=== PATIENT | female | born 1950 | race Caucasian/White ===

== ENCOUNTER 2021-11-01 08:59 | Emergency (ER) | payer MEDICARE, SELFPAY ==
[2021-11-01 09:10] VITALS: BP 105/61; PULSE 81; RESP 14; TEMP 36.6; O2SAT 99; BMI 29.6
--- NOTE | 2021-11-01 09:16 | DI.RAD.S_ITS ---
PROCEDURE: XR HIP W PEL IF DONE LT 2V INDICATIONS: fall,hip pain TECHNIQUE: AP pelvis with lateral view(s) of the left hip(s). COMPARISON: None. FINDINGS: Bones: No acute fractures or dislocations. There are surgical changes of fusion of the sacroiliac joints and multilevel lumbosacral fusion. There are severe degenerative changes in the right hip including a [id number] in the femoroacetabular joint and flattened right femoral head. There are mild degenerative changes in the left femoroacetabular joint Pelvic ring appears intact. No suspicious bony lesions. Soft tissues: The visualized bowel gas pattern is normal. No suspicious soft tissue calcifications. IMPRESSION: 1. No acute fractures. 2. Severe right hip degeneration. 3. Intact lower lumbar and sacral fusion hardware. Dictated by: Jolynn Villeda M.D. on 11/01/2021 at 9:55 Approved by: Jolynn Villeda M.D. on 11/01/2021 at 9:56
--- NOTE | 2021-11-01 09:55 | ED_ITS ---
HPI - Extremity Injury (Lower) General Chief Complaint: Extremity Injury, Lower Stated Complaint: Left hip pain Time Seen by Provider: 11/01/21 09:19 Source: patient Mode of arrival: Ambulatory Limitations: no limitations History of Present Illness HPI Narrative: The patient fell at home 8 days ago, going backwards and landing on her left hip. She has continuous left hip pain since the fall. Pain was increased this morning. There was no head, neck or torso injury. She has a history of 3 prior spinal surgeries, she usees a walker when ambulating. She says she falls frequently. She is concerned about increased pain today when she awoke. There is no new numbness or weakness in left leg. She is ambulatory in the room with her walker. She claims she has arthritis everywhere. She takes OxyContin reg ularly and is under a pain contract. She has no increased back pain associated with the recent fall. She does not have a history of chronic hip pain. Related Data Allergies Allergy/AdvReac Type Severity Reaction Status Date / Time aspirin Allergy Verified 11/01/21 09:14 gentamicin Allergy Verified 11/01/21 09:14 Sulfa (Sulfonamide Allergy Verified 11/01/21 09:14 Antibiotics) Review of Systems Constitutional Constitutional: Denies body ache(s), Denies fatigue, Denies fever(s) and Denies weakness ENT Ears, Nose, Mouth, and Throat: Denies sore throat Comments: No head or neck injuries. Cardiovascular Cardiovascular: Denies chest pain, Denies rapid heart rate and Reports dyspnea Respiratory Respiratory: Reports cough and Reports dyspnea Gastrointestinal Gastrointestinal: Denies abdominal pain and Denies nausea Genitourinary Genitourinary: Denies dysuria Musculoskeletal Musculoskeletal: Reports as per HPI and Denies numbness Integumentary/Breasts Skin/Breast: Denies rash Neurologic Neurologic: Denies numbness and Denies weakness Endocrine Endocrine: Denies fatigue Patient History Medical History (Updated 11/01/21 @ 13:37 by Tom Patricia MD) Arthritis Back pain with history of spinal surgery Social History Smoking Status: Unknown if ever smoked Smoking Status: Unknown if ever smoked alcohol intake frequency: 3 or more drinks per day Substance Use Type: does not use Exam Initial Vital Signs Initial Vital Signs: Vital Signs Temperature 97.9 F 11/01/21 09:10 Pulse Rate 81 11/01/21 09:10 Respiratory Rate 14 11/01/21 09:10 Blood Pressure 105/61 11/01/21 09:10 Pulse Oximetry 99 11/01/21 09:10 Const General: cooperative, healthy appearing and comfortable Resp Auscultation: clear to auscultation bilaterally Cardio Rate: regular rate Rhythm: regular rhythm Heart Sounds: S1 normal, S2 normal, no click, no murmurs and no rubs Back/Spine/Pelvis Other: Evidence of multiple spine surgeries. No acute discomfort or abnormality and her thoracic or lumbar spine. Skin General: no rashes or lesions noted Neuro General: patient alert, patient awake, patient oriented x3 and no focal motor deficits Other: Ambulatory with her walker. Extrem Other: Tenderness to the left lateral hip. No contusion abrasion, no obvious abnormalities or injury. Normal range of motion the left hip with discomfort. Her leg is otherwise normal. Course Course Course Narrative: The patient is on well now, although seemingly quite stiff this morning. She is ambulatory with her walker without incident. She has adequate pain medication at home. X-ray shows a normal left hip, but severe right hip DJD. She is aware of this issue and is under care by a local orthopedic surgeon. Orders Ordered: ED Orders 11/01/21 09:16 XR hip w pel if done LT 2V Stat Vital Signs Vital signs: Vital Signs - 8 hr 11/01/21 09:10 11/01/21 10:25 Temperature 97.9 F 98.1 F Pulse Rate 81 68 Respiratory Rate 14 18 Blood Pressure 105/61 100/58 L Pulse Oximetry 99 98 MDM - Extremity Injury (Lower) Imaging Data Left hip/pelvis x-ray:: Radiologist's Impression: Normal left hip. Severe DJD to the right hip. Discharge Plan Departure Patient Disposition: Home Clinical Impression: Contusion of hip, left Instructions: Contusion Activity Restrictions/Additional Instructions: Continue current pain management. I would recommend you talk to your doctor about physical therapy regarding the hip pain. Return here as needed. Referrals: Garima Lanier MD [Primary Care Provider] -
[2021-11-01 10:25] VITALS: BP 100/58; PULSE 68; RESP 18; TEMP 36.7; O2SAT 98
== END 2021-11-01 10:29 | disposition home or self-care (01) ==
PROVIDERS: Emergency Provider Emergency Medicine; PCP Internal Medicine Geriatric Medicine
DX: S70.02XA Contusion of left hip, initial encounter (principal); W18.30XA Fall on same level, unspecified, initial encounter; Z91.81 History of falling
CPT/HCPCS: 73502; 99281; 99283

== ENCOUNTER → 2022-02-03 10:17 | Outpatient (CLI) | payer MEDICARE, SELFPAY ==
[2022-02-03 13:10] LABS: COVID19 -Nasal RAPID Negative (Negative)
== END ==
PROVIDERS: PCP Internal Medicine Geriatric Medicine; Visit Provider Family Medicine Sleep Medicine
DX: Z20.822 Contact with and (suspected) exposure to COVID-19 (principal)
CPT/HCPCS: 87635; C9803

== ENCOUNTER 2022-02-04 08:56 | Inpatient (IN) | payer MEDICARE, SELFPAY ==
[2022-01-27 10:41] VITALS: BMI 30.7
[2022-02-04] VITALS (23 sets, daily range): BP systolic 79–148; BP diastolic 31–78; PULSE 65–96; RESP 11–18; TEMP 36.2–37.5; O2SAT 91–99; BMI 31.6
--- NOTE | 2022-02-04 07:28 | DI.RAD.S_ITS ---
PROCEDURE: XR HIP W PEL IF DONE RT 2V INDICATIONS: JENNIE TECHNIQUE: 3 intraoperative spot images) of the pelvis was performed. COMPARISON: [facility], [place], XR HIP W PEL IF DONE LT 2V, 11/01/2021, 9:18. FINDINGS: Intraoperative images demonstrate placement of right hip arthroplasty. IMPRESSION: Intraoperative imaging obtained during hip arthroplasty. Dictated by: Maribell Courtney M.D. on 02/04/2022 at 15:31 Approved by: Maribell Courtney M.D. on 02/04/2022 at 16:24
[2022-02-04] MEDS: ACETAMINOPHEN 325 MG TABLET 975 MG PO (09:35)
[2022-02-04] MEDS: VANCOMYCIN 1,000 MG/200 ML PIGGYBACK 200 MG IV (09:55)
--- NOTE | 2022-02-04 10:27 | PM.PREOP ---
Pre-operative Note COVID-19 COVID-19 status: Negative Interval Note History & Physical reviewed/Exam performed by Physician: Yes Changes to H&P: No H&P completed within 30 days and has changed as indicated here:: patient has a bleeding disorder, ddadp is available, no recent severe bleeding episodes
--- NOTE | 2022-02-04 10:28 | P.OP_ITS ---
Operative Date/Time/Diagnoses Date of procedure: 02/04/22 Time of procedure: 11:20 Pre-op diagnosis: Right hip AVN Post-op diagnosis: same Procedure & Clinicians Procedure: Right total hip arthroplasty anterior approach Same procedure as scheduled: Yes Indications: The patient has had progressively worsening right hip pain with radiographic changes consistent with severe right hip avn. Non-operative management has failed and the patient has requested total hip replacement. The risks, benefits and alternatives to surgery were discussed with the patient prior to proceeding. Risks discussed included, but were not limited to, failure to relieve pain, leg length discrepancy, dislocation, stiffness, infection, nerve damage, deep venous thrombosis, pulmonary embolism, stroke, coma, heart attack, permanent paralysis and , as well as the potential need for eventual revision of the prosthetic. Surgeon: Pat Hernandes Gang Knife Fish Chopper: Mariana Mendez Anesthesia Type: General Operative Notes Findings: Severe right hip AVN, adequate stability and bone Closure Type: primary Specimen(s): none sent Prosthetic devices, grafts, tissues, transplants, or devices: Hernandes and nephew R3 cup dual mobility 52 mm, 40 x 52 Oxinium liner, bi 22 by 40 dual mobility poly inset, +0 22 mm head,two 6.5 mm screws, anthology size 6 offset Estimated Blood Loss (mL): 250 Blood products transfused: none Procedure in detail: The patient was brought to the operating room. Patient was carefully positioned in the supine position. Time-out was performed and antibiotics were given. Anesthesia was induced. She was positioned in the on the table in order to allow hyperextension of the hip. The right lower extremity was prepped and draped in a standard sterile fashion. An anterior right hip incision was made 1 fingerbrea dth lateral to the anterior superior iliac spine and extended distally towards the greater trochanter. Dissection was carried out through skin and subcutaneous tissues. Superficial hemostasis was achieved. The fascia over the tensor fascia erika was defined and incised with a knife. Two Allis clamps were used to grasp the fascia. Tensor fascia erika was retracted laterally. A gelpi retractor was placed. Dissection was carried out down along the neck. The circumflex vessels were carefully identified and cauterized with the Aqua Mantis. Very meticulous dissection and hemostasis was performed because of the patient's bleeding disorder. I was meticulous with the subcutaneous tissues and fat and she was slightly heavier than an optimum BMI for anterior approach but it was felt to be essential due to her extensive lumbar fusion. There was good visualization of the femoral neck. A Cobra was placed superior to the neck and the gluteus fibers were carefully stripped from that superior as pect of the capsule. A 2nd retractor was placed along the inferior aspect of the neck. The rectus insertion along the capsule was partially released. A 3rd retractor that was then gently placed over the rim of the acetabulum under the rectus. Capsule was carefully incised and released from the intertrochanteric line circumferentially superior to the mid sagittal line and inferiorly to the mid sagittal line until the lesser trochanter was palpable. A tag stitch was placed both in the superior and inferior limb of the capsular insertion. Along the acetabulum capsule was also released up to the mid sagittal 12:00 position. A portion of the labrum was resected. A saw was used to perform an osteotomy at the level of the intertrochanteric line and the junction of the superior femoral neck leaving approximately 1 finger breath of residual inferior neck above the lesser trochanter. A 2nd cut was made along the femoral neck at the base of the head and a napkin ring of neck was removed. Corkscrew was placed in the femoral head and the head was removed without difficulty. Retractors were then repositioned around the acetabulum. Residual labrum was resected and additional osteophytes were removed. A reamer that was 4 mm below the templated size was placed by hand in the acetabulum and it was reamed to centralize the acetabulum. It was then reamed up to 2 under the templated size and fluoroscopy was brought in to confirm the position of the reaming and depth of reaming. I reamed 1 under the anticipated size and touched the rim with line to line reaming. A trial cup was placed and noted that it was appropriately sized and fluoroscopy confirmed position and depth. The component was open and inserted without difficulty fluoroscopic imaging was used to confirm that the cup had been adequately seated and was well positioned. It was further stabilized with two 6.5 mm screws. Neutral Oxinium dual mobility liner was placed. The cup was tested and noted to be stable. Attention was then directed to the femur. The femur was gently hyperextended additional capsular release was performed as needed in order to allow adequate visualization of the proximal femur with elevation of the femur. Patient was placed in a hyperextended slightly adducted position with maximum external rotation. Box osteotome was used to check for any residual neck as well as sclerotic bone along the trochanter. [place] pepper was placed in the femur. Additional broaching was performed. Canal finder was used to determine the alignment of the canal and position. Size 1 broach was placed. The canal was then appropriately broached up to the templated size as long as there was adequate stability of the broach and serial advancement of the broach without excessive impingement. Specific attention was directed at avoiding varus attempting to direct the distal aspect of the broach more anteriorly and avoiding excessive anteversion. Trial reduction showed acceptable range of motion, good stability, no posterior impingement, episcopalian of leg length and appropriate lateral shuck. I also hyperflexed the hip and checked that there was no impingement anteriorly and there was good stability with flexion, adduction and internal rotation. Marcaine and Exparel were injected. Repeat trial reduction and x-ray showed acceptable overall position, length, and no evidence of the femoral fracture. Fi nal head was placed. Wound was meticulously irrigated with normal saline. The hip was reduced and additional Exparel and Marcaine were injected. The femur was meticulously mobilized throughout procedure. She did hit did have some moderate adhesions in mobility was a minor issue but adequate mobility was achieved. The cup position in range of motion was meticulously checked understanding that she had severe spine pathology. I check for both anterior as well as posterior instability to the best my ability in the table. The capsule was closed with interrupted nonabsorbable sutures. The fascia of the tensor was closed with interrupted and running Vicryl. No drain was placed. Any tensor fascia erika muscle that appeared to be contused or injured which was a minimal amount was carefully resected. Capsule around the tensor was injected with Exparel and Marcaine. The skin was closed with barbed stitches for the subcutaneous tissue and skin. We also used surgical glue. The wound was dressed sterilely. Patient was transferred to recovery room in satisfactory condition. Complications: none Post-operative Condition: stable Disposition: Acute Care Plan for aftercare: The patient will be maintained on a standard total hip replacement protocol with weight bearing as tolerated and anterior hip precautions. The patient will receive Aspirin and sequential compression devices for DVT prophylaxis. The patient will be discharged home when safe for the home environment. She has a history of a bleeding disorder in needs DDAVP 12 hours after the 1st dose.
[2022-02-04] MEDS: DESMOPRESSIN 20 MCG in SODIUM CHLORIDE 0.9% 50 ML 110 ML IV ×2 (10:47→22:40)
--- NOTE | 2022-02-04 10:49 | SUR.PREOP ---
Addendum entered by Ni Yung R.N. 02/04/22 11:19: 1120 - Patient remains on blood pressure and threading machine feeder automatic. NSR in the 60-70's. Blood pressure elevated to 203/120 at 0911 (tranfusion of desmopressin completed). Rechecked blood pressure with a result of 191/104. fulling mill operator at bedside and notified anesthesiologist Dr. Malik of blood pressure. No new orders noted at this time. Remains on monitor. Patient denies any symptoms of hypertension and states that she feels fine. Nurse biofuels plant manager, Sloane, notified of situation. Printout of blood pressures placed in chart. 1122 - Patient taken back to OR by surgical nurse. Patient continues to deny any symptoms. Original Note: 1049 - Patient has order for desmopressin (see emar). Discussed with nurse biofuels plant manager and pharmacist about protocol for administering in preop. Patient placed on telemetry and blood pressure monitor and desmopressin started per order when instructed to by physician. Patient being monitored through infusion.
--- NOTE | 2022-02-04 11:00 | DI.RAD.S_ITS ---
PROCEDURE: XR HIP W PEL IF DONE RT 2V INDICATIONS: POST OP RIGHT HIP TECHNIQUE: AP pelvis and lateral view of the right hip acquired. COMPARISON: [facility], [place], XR HIP W PEL IF DONE LT 2V, 11/01/2021, 9:18. [facility], [place], XR HIP W PEL IF DONE RT 2V, 02/04/2022, 13:23. FINDINGS: Bones: Patient is status post right total hip arthroplasty, with hardware components in expected positions. The hip joint appears congruent. The visualized bony structures appear intact. Soft tissues: Overlying postoperative changes are noted. No suspicious soft tissue densities. IMPRESSION: Status post right hip arthroplasty with expected postoperative findings. Dictated by: Sander Lazar M.D. on 02/04/2022 at 17:02 Approved by: Sander Lazar M.D. on 02/04/2022 at 17:03
[2022-02-04] MEDS: TRANEXAMIC ACID 1,000 MG VIAL 2000 MG INJ ×2 (11:55→14:29)
--- NOTE | 2022-02-04 12:07 | SUR.OPER ---
Supine on padded [place] table with bilateral legs secured in padded with cast padding in positioning boots and suspended in positioning spars, operative leg in traction per surgeon. Head on one pillow. Arm on non-operative side secured on padded armboard <90 degrees abduction. Arm on operative side padded and resting across chest then secured with tape over sheet. Padded perineal post in place per surgeon. Glasses in room with patient as there are no glass cases available.
[2022-02-04] MEDS: CEFAZOLIN 2 GM/20 ML SYRINGE IV ×2 (12:32→21:05)
[2022-02-04] MEDS: BUPIVACAINE 0.25% (PF) 60 ML, EPINEPHrine 0.3 MG INJ (13:19)
[2022-02-04] MEDS: SODIUM CHLORIDE IRRIG SOLUTION 250 ML, POVIDONE-IODINE SPONGE STICKS 1 APPLIC IRR (13:22)
[2022-02-04] MEDS: BUPIVACAINE LIPOSOME 266 MG/20 ML VIAL INJ (13:35)
[2022-02-04] MEDS: ONDANSETRON 4 MG/2 ML INJ IV (15:44)
[2022-02-04] MEDS: HYDROMORPHONE 2 MG INJ IV (15:48)
[2022-02-04] MEDS: LACTATED RINGERS 1,000 ML 42 ML IV (15:51)
--- NOTE | 2022-02-04 16:25 | SUR.PHASEI ---
Dr. Malik came in to see pt and we told her about her low pressure and she said she did not want to do anything about it right now. Will continue to closely monitor pt and monitor her blood pressure.
--- NOTE | 2022-02-04 16:29 | SUR.PHASEI ---
Pt's pressure dropped and placed pt back in trendelenburg and pressure came back up . Pt is talking and says she does not feel dizzy. Will answer questions appropriately.
--- NOTE | 2022-02-04 16:40 | SUR.PHASEI ---
Patient remains hypotensive in the low 60s- to 70s systolic; asymptomatic but drowsy; 2500 LR infused; additional IV site placed to Right AC; after being in trendelenberg, sat patient back up to assess mental status and BP and MAP; Patient starting to drink gingerale and now BP is 90/52, MAP 66. Notified Dr Hernandes, surgeon, of situation. Dr Hernandes contacting hospitalist to evaluate patient once patient arrives to inpatient room. Water Purifier notified of situation.
[2022-02-04] MEDS: LACTATED RINGERS 1,000 ML 125 ML IV (17:45)
--- NOTE | 2022-02-04 18:01 | P.CONS_ITS ---
History of Present Illness Consult details Date Patient Seen: 02/04/22 Time Patient Seen: 18:01 Chief complaint: RT JENNIE *OPB* Reason for consult: hypotension Requesting provider: Pat Hernandes Narrative: This is a 71-year-old female with the past medical history chronic iron deficiency anemia, status post gastric bypass surgery, prior significant bleeding postoperatively requiring multiple blood transfusions, FFP and factor replacement but improved when she received DDAVP before and after her operation. She has had a negative workup with Hematology for any bleeding disorders. She underwent right JENNIE for advanced hip osteoarthritis with Dr. Hernandes today. She was hypotensive in the PACU but had no evidence of bleeding. Medicine was consulted for further evaluation. Upon arrival to the floor, the patient was mildly hypotensive, which she states she normally runs a bit on the low side. She was asymptomatic and denied any dizziness, shortness of breath, chest pain, nausea, vomiting, vision changes. She reports her pain is not out of control currently. She denies any recent lower extremity edema, and no changes to her usual dyspnea with exertion. She has predominantly limited due to pain as far as her ambulation status. Past FH: sister with bleeding during vaginal , denies known bleeding disorders in mother or father. She did receive ddavp prior to surgery, another dose scheduled for this evening per recommendations. Should bleeding arise, rFVIIa is recommended. Meds Home Medications and Allergies Home Medications Medication Instructions Recorded Confirmed Type bupropion HCl 150 mg tablet,12 hr 150 mg PO BID 01/27/22 02/04/22 History sustained-release dextroamphetamine-amphetamine 10 10 mg PO BID 01/27/22 02/04/22 History mg tablet (Adderall) docusate sodium 100 mg capsule 300 - 500 mg PO DAILY 01/27/22 02/04/22 History (Colace) doxycycline hyclate 100 mg capsule 100 mg PO DAILY 01/27/22 02/04/22 History duloxetine 60 mg capsule,delayed 60 mg PO DAILY 01/27/22 02/04/22 History release meloxicam 15 mg tablet 15 mg PO DAILY 01/27/22 02/04/22 History metoprolol succinate 100 mg 100 mg PO DAILY 01/27/22 02/04/22 History tablet,extended release 24 hr oxycodone 20 mg tablet 20 mg PO BID 01/27/22 02/04/22 History pantoprazole 40 mg tablet,delayed 40 mg PO BID 01/27/22 02/04/22 History release pregabalin 150 mg capsule 150 mg PO BID 01/27/22 02/04/22 History tizanidine 2 mg tablet 2 mg PO Q8H PRN 01/27/22 02/04/22 History Allergies Allergy/AdvReac Type Severity Reaction Status Date / Time aspirin Allergy Severe Prolongs Verified 02/04/22 09:14 bleeding - has a bleeding disorder gentamicin Allergy Severe My face Verified 02/04/22 09:14 and eyes blew up Sulfa (Sulfonamide Allergy Severe Rash Verified 02/04/22 09:14 Antibiotics) Review of Systems Review of Systems Narrative: All other systems reviewed with the patient and are negative unless otherwise stated. Exam Vital Signs (past 8 hours): - 02/04/22 15:32 02/04/22 15:37 02/04/22 15:42 Temperature 99.5 F Pulse Rate 93 H 96 H 89 Respiratory Rate 16 12 13 Blood Pressure 95/68 87/39 L 86/38 L Pulse Oximetry 98 93 93 02/04/22 15:51 02/04/22 15:54 02/04/22 15:56 Temperature Pulse Rate 80 78 75 Respiratory Rate 13 11 L 11 L Blood Pressure 88/39 L 83/46 L 79/43 L Pulse Oximetry 93 92 92 02/04/22 15:59 02/04/22 16:02 02/04/22 16:11 Temperature Pulse Rate 77 77 73 Respiratory Rate 13 11 L 11 L Blood Pressure 108/50 L 91/34 L 89/39 L Pulse Oximetry 94 91 92 02/04/22 16:16 02/04/22 16:21 02/04/22 16:28 Temperature Pulse Rate 73 72 75 Respiratory Rate 11 L 16 16 Blood Pressure 93/31 L 87/42 L 93/32 L Pulse Oximetry 92 91 94 02/04/22 16:31 02/04/22 16:37 02/04/22 16:42 Temperature 99.1 F Pulse Rate 77 70 84 Respiratory Rate 12 12 16 Blood Pressure 96/46 L 93/38 L 90/52 L Pulse Oximetry 92 92 91 02/04/22 16:56 02/04/22 17:01 02/04/22 17:06 Temperature Pulse Rate 72 71 71 Respiratory Rate 11 L 13 12 Blood Pressure 96/51 L 93/52 L 93/51 L Pulse Oximetry 94 98 99 Oxygen Delivery Method Nasal Cannula Oxygen Flow Rate 4 Narrative Exam Narrative: General:? Patient is well developed and well nourished, in no distress at this time. HEENT:? Normocephalic, atraumatic, extraocular muscles intact, oral pharynx is clear and mucous membranes are moist. Neck: supple and symmetric, trachea is midline, no cervical adenopathy. Negative for JVD Chest:? Normal AP diameter and contour without kyphoscoliosis, no tachypnea, equal chest rise bilaterally. Lungs:? CTA b/l no wheezing rhonchi or rales. Cardio:?RRR no m/r/g. Abdomen: S NT ND. Musculoskeletal:? Muscle strength and tone are equal within normal limits, no deformity. Extremities: No edema or joint effusions. No cyanosis or clubbing. Skin:? Pale,? Warm to touch,dry and intact without rashes, ulcerations or petechiae.?R leg incision is c/d/i. No bruising. Neuro:? Alert and orientated x3,? sensation to touch intact in all extremities, no gross deficits noted of cranial nerves. Psych:? Patient has a well-kept appearance, appropriate affect, mental status attitude thought context and judgment are appropriate for age. Objective ECG Impression: NSR as interpreted by me, study was performed on January 06 [facility] Medical History Actinic keratoses ADHD Arthritis B12 deficiency Back pain with history of spinal surgery BCC (basal cell carcinoma) Bleeding diathesis Cervical spondylosis Chronic pain DDD (degenerative disc disease) Depression Gastric ulcer (02/17/20) History of Mohs micrographic surgery for skin cancer HTN (hypertension) Hypersomnia Iron deficiency anemia Neurogenic claudication LEO (obstructive sleep apnea) Osteoarthritis Osteoporosis Psoriasis Psoriatic arthritis RBBB (right bundle branch block) RLS (restless legs syndrome) Rosacea SCC (squamous cell carcinoma) Scoliosis Sicca syndrome Spinal stenosis Spontaneous bruising Surgical History History of carpal tunnel surgery of left wrist History of carpal tunnel surgery of right wrist History of gastric bypass (~2004) History of hysterectomy (1995) History of reverse total replacement of right shoulder joint History of spinal fusion Hx of arthroscopy of left knee Hx of arthroscopy of right knee Hx of cholecystectomy Hx of toe surgery Social History household members: none Tobacco & Substance Use Smoking Status: Never smoker alcohol intake: current substance use type: does not use Assessment & Plan Assessment & Plan narrative: This is a 71-year-old female with the past medical history chronic iron deficiency anemia, status post gastric bypass surgery, prior significant bleeding postoperatively who underwent right JENNIE for advanced hip osteoarthritis with Dr. Hernandes today. She was hypotensive in the PACU but had no evidence of bleeding. Medicine was consulted for further evaluation of her hypotension. 1. Hypotension, post operative - suspect this to be a combination of patient's normally borderline low BP per outpatient review with her home metoprolol, which she took this morning, in combination with anesthesia. - she is currently asymptomatic - monitor BP closely and incision site for signs of bleeding - ddAVP scheduled per hematology recommendations. rFVIIa is recommended if bleeding occurs, will require pharmacist to come in if ordered. - hold home metoprolol tomorrow. 2. Chronic iron deficiency anemia - outpatient labs with Hg of 10.3 in 09/2021. Unknown if more recent studies but these are not available for review. - h/h ordered for the AM, would check another if hypotension persists. 3. ADHD - continue home adderall 4. Depression - continue home buproprion 5. S/p R JENNIE for R hip osteoarthritis. - management per surgery. Code: Full, surrogate decision maker is her son I have utilized all available immediate resources to obtain, update, or review the patient's current medications. Medicine will continue to follow this patient. Time Spent With Patient Critical Care time: I spent a total of [] minutes of critical care time on this patient's care today; this time is exclusive of procedural time.
--- NOTE | 2022-02-04 19:04 | PC.NURSE ---
Day Shift Note 1715- Patient arrived to floor, A&O, RA, soft BP/asymptomatic, all other VSS. MD Aware of hypotension, ok with MAP greater than 60 if asymptomatic. 1845- Patient with MAP less than 60 at, patient asymptomatic. Patient repositioned in trendelenberg with HOB at 15, repeat BP with map of 65, asymptomatic, will continue to monitor and update maritime pilot nurse.
[2022-02-04] MEDS: PREGABALIN 75 MG CAPSULE 150 MG PO (21:05)
[2022-02-04] MEDS: ACETAMINOPHEN 325 MG TABLET 650 MG PO (21:05)
[2022-02-04] MEDS: DOCUSATE 100 MG CAPSULE PO (21:06)
[2022-02-04] MEDS: OXYCODONE IR 10 MG TABLET 20 MG PO (21:06)
[2022-02-04] MEDS: PANTOPRAZOLE DR 40 MG TABLET PO (21:06)
[2022-02-04] MEDS: buPROPion SR 150 MG TAB PO (21:06)
[2022-02-05 00:10] VITALS: BP 111/54; PULSE 69; RESP 18; TEMP 36.2; O2SAT 97
[2022-02-05] MEDS: CEFAZOLIN 2 GM/20 ML SYRINGE IV (04:27)
[2022-02-05 04:35] VITALS: BP 100/47; PULSE 72; RESP 18; TEMP 36.2; O2SAT 99
[2022-02-05 05:06] LABS: Hematocrit 25.4 % (36-46); Hemoglobin 8.8 g/dL (12.0-16.0)
[2022-02-05] MEDS: PANTOPRAZOLE DR 40 MG TABLET PO (06:29)
--- NOTE | 2022-02-05 07:38 | P.DS_ITS ---
History of Present Illness History of Present Illness Date Patient Seen: 02/05/22 Time Patient Seen: 07:38 Chief complaint: RT JENNIE *OPB* Narrative: Operative Date/Time/Diagnoses Date of procedure: 02/04/22 Time of procedure: 11:20 Pre-op diagnosis: Right hip AVN Post-op diagnosis: same Procedure & Clinicians Procedure: Right total hip arthroplasty anterior approach Same procedure as scheduled: Yes Indications: The patient has had progressively worsening right hip pain with radiographic changes consistent with severe right hip avn. Non-operative management has failed and the patient has requested total hip replacement. The risks, benefits and alternatives to surgery were discussed with the patient prior to proceeding. Risks discussed included, but were not limited to, failure to relieve pain, leg length discrepancy, dislocation, stiffness, infection, nerve damage, deep venous thrombosis, pulmonary embolism, stroke, coma, heart attack, permanent paralysis and , as well as the potential need for eventual revision of the prosthetic. Surgeon: Pat Hernandes Water Truck Driver: Mariana Mendez Anesthesia Type: General Operative Notes Findings: Severe right hip AVN, adequate stability and bone Closure Type: primary Specimen(s): none sent Prosthetic devices, grafts, tissues, transplants, or devices: Hernandes and nephew R3 cup dual mobility 52 mm, 40 x 52 Oxinium liner, bi 22 by 40 dual mobility poly inset, +0 22 mm head,two 6.5 mm screws, anthology size 6 offset Estimated Blood Loss (mL): 250 Blood products transfused: none Discharge Providers Provider Discharge Date: 02/05/22 Primary care physician: Garima Lanier MD Consults: 01/27/22 15:29 Consult to Anesthesiology Routine Comment: Consulting Provider: Anesthesiologist Reason for consultation: Surgeon requested re: Bleeding disorder 02/04/22 07:28 Consult to Anesthesiology Routine Comment: Consulting Provider: Anesthesiologist Reason for consultation: Regional block for post operative pain control 02/04/22 17:10 Consult to Discharge Planning Routine Comment: Consult to Physical Therapy Evaluate & Treat Comment: Physician Instructions: post op JENNIE protocol Consult to Respiratory Therapy Evaluate & Treat Comment: Physician Instructions: Evaluate and treat 02/04/22 18:22 Consult to Hospitalist Service Routine Comment: Consulting Provider: Tahir Logan Reason for consultation: hypotension, blood dyscrasia Has provider been notified: Yes Discharge provider: Kylee Beh, PA-C Summary Hospital Course Discharge Diagnosis: 1) s/p RIGHT total hip arthroplasty, anterior approach 2) Acute anemia d/t expected blood loss on top of chronic iron deficiency anemia 3) Acute intraoperative hypotension 4) H/o coagulopathy Hospital Course: Ms Merino's hospital course was remarkable for intra- and immediate post- operative hypotension. The hospitalist service was consulted, but hypotension resolved without intervention by the morning of POD# 1. On POD# 1 she was feeling well and wanted to go home. She was eating and voiding without difficulty. She was evaluated by PT prior to discharge. Exam Vital Signs (past 8 hours): - 02/05/22 00:10 02/05/22 04:35 Temperature 97.1 F L 97.2 F L Pulse Rate 69 72 Respiratory Rate 18 18 Blood Pressure 111/54 L 100/47 L Pulse Oximetry 97 99 Oxygen Delivery Method Nasal Cannula Oxygen Flow Rate 0 Narrative Exam Narrative: 5/5 strength in hip flexors, quadriceps, hamstrings, DF, PF, EHL on right. Sensation to light touch intact throughout RLE. Calves soft, compressible, nontenter and without palpable cords or masses. Objective Labs Result Diagrams: 02/05/22 04:44 Labs: Laboratory Results - last 24 hr 02/05/22 04:44 Hgb 8.8 L Hct 25.4 L PFSH Medical History Actinic keratoses ADHD Arthritis B12 deficiency Back pain with history of spinal surgery BCC (basal cell carcinoma) Bleeding diathesis Cervical spondylosis Chronic pain DDD (degenerative disc disease) Depression Gastric ulcer (02/17/20) History of Mohs micrographic surgery for skin cancer HTN (hypertension) Hypersomnia Iron deficiency anemia Neurogenic claudication LEO (obstructive sleep apnea) Osteoarthritis Osteoporosis Psoriasis Psoriatic arthritis RBBB (right bundle branch block) RLS (restless legs syndrome) Rosacea SCC (squamous cell carcinoma) Scoliosis Sicca syndrome Spinal stenosis Spontaneous bruising Surgical History History of carpal tunnel surgery of left wrist History of carpal tunnel surgery of right wrist History of gastric bypass (~2004) History of hysterectomy (1995) History of reverse total replacement of right shoulder joint History of spinal fusion Hx of arthroscopy of left knee Hx of arthroscopy of right knee Hx of cholecystectomy Hx of toe surgery Social History household members: none Smoking Status: Never smoker alcohol intake: current substance use type: does not use Discharge Assessment & Plan Assessment and Plan Assessment: 1) s/p RIGHT total hip arthroplasty, anterior approach 2) Acute anemia d/t expected blood loss on top of chronic iron deficiency anemia 3) Acute intraoperative hypotension 4) H/o coagulopathy Plan of Treatment: 1) WBAT RLE, anterior hip precautions, ASA 81 mg daily for VTE prophylaxis. Dr Garima Lanier typically manages her chronic narcotics; she has an appt w/ Dr Raj pérez next week. I will discharge her on hydromorphone 2 mg #20; all narcotic pain management should be taken over by Dr Lanier after that to avoid multiple prescribers. 2) No intervention needed at this time. 3) Resolved, 4) Pt received pre- and post-operative DDAVP. Discharge Plan Discharge orders & Medications Discharge Orders: Discharge (Order); Ordered 02/05/22 Ordered By: Kylee Matt Prescriptions: New hydromorphone 2 mg Tablet 2 mg PO Q3H PRN (Reason: pain, severe) Qty: 20 0RF aspirin 81 mg capsule 81 mg PO DAILY Qty: 1 0RF Continued bupropion HCl 150 mg Tablet Sustained-Release 12 Hr 150 mg PO BID 0RF doxycycline hyclate 100 mg Capsule 100 mg PO DAILY 0RF meloxicam 15 mg Tablet 15 mg PO DAILY 0RF dextroamphetamine-amphetamine [Adderall] 10 mg Tablet 10 mg PO BID 0RF Rx Instructions: administer doses at least 4-6 hours apart metoprolol succinate 100 mg Tablet Extended Release 24 Hr 100 mg PO DAILY 0RF pantoprazole 40 mg Tablet,Delayed Release (Dr/Ec) 40 mg PO BID 0RF docusate sodium [Colace] 100 mg Capsule 300 - 500 mg PO DAILY 0RF duloxetine 60 mg Capsule,Delayed Release(Dr/Ec) 60 mg PO DAILY 0RF pregabalin 150 mg Capsule 150 mg PO BID 0RF oxycodone 20 mg Tablet 20 mg PO BID 0RF tizanidine 2 mg Tablet 2 mg PO Q8H PRN (Reason: Muscle Spasm) 0RF Follow up/Referrals: Garima Lanier MD [Primary Care Provider] - Pat Hernandes MD [Physician] - As previously scheduled (Follow up w/ Dr Hernandes on 02/21/2022 @ 1:00 pm at [facility] in [place]) Diet/Activity/Treatments Diet: Diet as Tolerated Activity: Walk frequently with walker. Weight bearing as tolerated to right leg. Anterior hip precautions. Cold/Heat Therapy: Ice to hip as needed for pain. Skin/Wound/Dressing Care Report to your healthcare provider any signs of infection, such as:: chills, fever, night sweats, unusual drainage and unusual redness Dressing: May shower. Leave Aquacel dressing intact until follow up in office. No bathing or otherwise soaking incision. Call office if dressing becomes saturated inside. Visit Report/Discharge Packet Instructions: DI for Hip Replacement Stand Alone Forms: Surgery Discharge Discharge Data Primary Care Provider: Garima Lanier
[2022-02-05 08:50] VITALS: BP 152/66; PULSE 76; RESP 16; TEMP 36.4; O2SAT 97
[2022-02-05 09:08] VITALS: BP 152/66; PULSE 76
[2022-02-05] MEDS: DULOXETINE 30 MG CAPSULE 60 MG PO (09:08)
[2022-02-05] MEDS: buPROPion SR 150 MG TAB PO (09:08)
[2022-02-05] MEDS: DOCUSATE 100 MG CAPSULE PO (09:08)
[2022-02-05] MEDS: MELOXICAM 7.5 MG TABLET 15 MG PO (09:08)
[2022-02-05] MEDS: PREGABALIN 75 MG CAPSULE 150 MG PO (09:08)
[2022-02-05] MEDS: METOPROLOL ER 50 MG TABLET 100 MG PO (09:08)
[2022-02-05] MEDS: DOXYCYCLINE HYCLATE 100 MG TABLET PO (09:08)
[2022-02-05] MEDS: ACETAMINOPHEN 325 MG TABLET 650 MG PO (09:10)
[2022-02-05] MEDS: polyethylene glycoL 3350 17 GM POWD.PACK PO (09:20)
--- NOTE | 2022-02-05 10:40 | PT.IIE ---
Current Diagnoses Other acute postprocedural pain (02/04/22) Other unilateral secondary osteoarthritis of hip (02/04/22) Pain in right hip (02/04/22) Pain in unspecified hip (02/04/22) Idiopathic aseptic necrosis of right femur (02/04/22) Presence of right artificial hip joint (02/04/22) Surgery Performed Operation Date: 02/04/22 10:45 Actual Procedures p Total Hip Arthroplasty/Anterior Approach(Right) - Pat Hernandes MD Medical History (Last Reviewed 02/04/22 @ 18:04 by Tahir Logan DO) Actinic keratoses ADHD Arthritis B12 deficiency Back pain with history of spinal surgery BCC (basal cell carcinoma) Bleeding diathesis Cervical spondylosis Chronic pain DDD (degenerative disc disease) Depression Gastric ulcer (02/17/20) History of Mohs micrographic surgery for skin cancer HTN (hypertension) Hypersomnia Iron deficiency anemia Neurogenic claudication LEO (obstructive sleep apnea) Osteoarthritis Osteoporosis Psoriasis Psoriatic arthritis RBBB (right bundle branch block) RLS (restless legs syndrome) Rosacea SCC (squamous cell carcinoma) Scoliosis Sicca syndrome Spinal stenosis Spontaneous bruising Physical Therapy Inpatient Evaluation/Re-Eval M1 PT/OT-IP Prior Functional Status Start: 02/05/22 13:15 Freq: NEEDED Status: Active Protocol: Document 02/05/22 10:40 AB (Rec: 02/05/22 13:34 AB [id number]) Medical Review Prior Functional Status Medical History Reviewed Yes Communication able to make needs known Mobility and Gait pt stated that she is modified independent with all mobilities and ambulation using SPC; stated that she has chronic back problems resulting in weakness of LLE Social History Household Members none Living Arrangements House Number of Floors (Floors) Two Floors Number of Stairs To Enter/Railing? 2 steps without rails to enter ; R grab bar on edge of door frame 7 steps + landing+ 7 steps L rail ascending to bedroom level Home Environment Standard Height Toilet,Walk in Shower,Built-In Shower Seat Home Equipment Front Wheel Walker,Four Wheel Walker,Quad Cane,Straight Cane ,Raised Toilet Seat Without Armrests,Hand Held Shower,Grab Bars In Shower Additional Social History Comment pt stated that she has a caregiver that comes in to assist her with house chores or drive her to her appointment once a week for ~ 4-5 hours pt's son will stay with pt to assist M2 PT-IP Current Condition Start: 02/05/22 13:15 Freq: NEEDED Status: Active Protocol: Document 02/05/22 10:40 AB (Rec: 02/05/22 13:34 AB [email or web address]) Physical Therapy Current Condition Current Condition Evaluation Date 02/05/22 Treatment Diagnosis s/p R JENNIE anterior approach; difficulty in walking Onset Date 02/04/22 M3 PT-IP Subjective Start: 02/05/22 13:15 Freq: NEEDED Status: Active Protocol: Document 02/05/22 10:40 AB (Rec: 02/05/22 13:34 AB [email or web address]) Subjective Physical Therapy Visit Type Type Initial Evaluation Visit Start Time 10:40 Visit Stop Time 11:50 Total Visit Minutes 70 Number of ARCHITECTURAL DRAFTING INSTRUCTOR Visits 0 Physical Therapy Visit Comments Patient Comments agreeable to do PT Therapy Pain Assessment Pain When Pain Assessed At Rest Pain Present Pain Present Pain Reported Location Right Hip Intensity 5 Scale Used Numeric (0 - 10) Pain Management Techniques Apply Cold,Distraction, Modification of Treatment,Re- positioning,Timing of Activity with Medications M4 PT-IP Mobility and Gait Start: 02/05/22 13:15 Freq: NEEDED Status: Active Protocol: Document 02/05/22 10:40 AB (Rec: 02/05/22 13:34 AB [id number]) PT-Bed Mobility Assessment Rolling Level of Assist Minimal Assistance,Moderate Assistance Supine to Sit Supine to Sit Minimal Assistance,Moderate Assistance,1 Person Assistance ,Bedrails Sit to Supine Sit to Supine Moderate Assistance,Maximum Assistance,1 Person Assistance ,Bedrails PT-Transfer Assessment Sit to and From Stand Sit to and from Stand Minimal Assistance,Moderate Assistance,1 Person Assistance Equipment Transfer Assistive Device Gait Belt,Front Wheeled Walker Orthotic/Prosthetic Devices or Brace: No Transfers Transfer Destination Chair Transfer Technique ambulated Transfer Ability Level of Assist Moderate Assistance,1 Person Assistance,Use of Upper Extremities Comments Mobility Comments pt educated on R hip anterior precautions. completed supine to sit with 3 attempts to get to sitting position. c/o back pain. educated pt on log roll bed mobility due to chronic back problems. completed requiring min to mod A and max cues. able to sit on EOB CGA. completed sit to stand min to mod A and cues. cued for quads activation on BLE with slight buckling noted and posterior LOB. pt ambulated in room ~ 25 ft using FWW mod A and cues. pt c/o feeling tired after ambulation. asked pt if she can stay on main level of the house and stated that she can. pt has 2 steps to enter the house without rails. Educated pt on how to do up/down step using SPC and FINANCIAL SERVICE PROFESSIONAL. pt ambulated from EOB towards platform step using FWW min to mod A and max cues. pt unsteady standing balance during transition from FWW to SPC/FINANCIAL SERVICE PROFESSIONAL and unable to complete up/down step due to unsteadiness. instructed pt to hold to FWW again and ambulated back to the bed mod A and cues. educated pt on safety and stair climbing appropriateness at this time. assessed single leg stance to determine if pt will be able to do stairs using SPC and FINANCIAL SERVICE PROFESSIONAL . pt completed max A and max cues x 4 attempts. initially only able to hold leg up for less than 1 sec. able to hold ~ 7 sec max with max A and max cues. pt lay back in bed mod to max for sit to supine log roll and max cues. positioned pt in bed. educated pt on safe d/c and recommendation of SNF rehab. pt does not want to go to SNF but after education and realizing assistance needed was more agreable afterwards. caregiver training still set up for this afternoon at ~1pm. nurse informed. Gait Assessment Gait Gait Assistance Required: Minimum Assistance,Moderate Assistance Distance (Feet) 25 Able to Maintain Weight Bearing Status Yes During Gait Assistive Devices Assistive Device Gait Belt,Front Wheeled Walker Orthotic/Prosthetic Devices or Brace: No Gait Deviations General Gait Pattern Antalgic,Decreased Stride Length,Decreased Feet Clearance Factors Limiting Gait Function Factors Limiting Gait Function Decreased Activity Tolerance, Decreased Strength,Limited Range of Motion,Pain,Poor Balance,Poor Safety Awareness Stair Climbing Assessment Comments Stair Climbing Comments pls refer to mobility section for details PT-Balance Assessment Sitting Balance and Reactions Static Sitting Balance Ability Good Dynamic Sitting Balance Ability Good Standing Balance and Reactions Static Standing Balance Ability Poor Dynamic Standing Balance Ability Poor Device Used FWW M5 PT-IP Objective Assessments Start: 02/05/22 13:15 Freq: NEEDED Status: Active Protocol: Document 02/05/22 10:40 AB (Rec: 02/05/22 13:34 AB [id number]) Orientation Orientation/Cognition Level of Alertness Alert Orientation Name,Situation Language Function Ability No Deficits Noted Safety Awareness Decreased Safety Awareness Memory Description No Deficits Noted Gross Range of Motion Lower Extremity ROM Assessment Within Functional Limits Strength Lower Extremity Strength Assessment Bilaterally Impaired Comments Strength Comments LLE: 3-/5 RLE 3+/5 Sensation Assessment Sensation Gross Sensation WNL Muscle Tone Muscle Tone WNL Yes M6 PT-IP Treatment Start: 02/05/22 13:15 Freq: NEEDED Status: Active Protocol: Document 02/05/22 10:40 AB (Rec: 02/05/22 13:34 AB [email or web address]) Physical Therapy Treatment Education Education Provided Precautions,Weight Bearing Status,Post-Op Packet,Safety M7 PT-IP Assessment and Plan Start: 02/05/22 13:15 Freq: NEEDED Status: Active Protocol: Document 02/05/22 10:40 AB (Rec: 02/05/22 13:34 AB [email or web address]) PT Summary Assessment and Plan Potential Rehabilitation Potential Fair Status of Condition at Evaluation Evolving Summary Impairments Pain,ROM,Strength,Balance, Coordination,Cognition,Bed Mobility,Transfers,Gait, Activity Tolerance Assessment Summary pt requiring mod to max A and max cues with mobility using FWW. attempted stair climbing but pt unable to complete. noted knee buckling during ambulation requiring assist and max cues for stability. pt requires SNF rehab at this time. will assess progress. caregiver training set up at 1pm if pt will progress enough this afternoon to be able to d/c. nurse informed that pt is not safe and ready to d/c as of this morning. Goals Bed Mobility Goal Standby Assistance Transfer Goal Standby Assistance,Front Wheeled Walker Gait Goal Standby Assistance,Front Wheel Walker Gait Distance 150 Other Goals up/down 2 steps SPC/quad cane/ FINANCIAL SERVICE PROFESSIONAL min A Days to Meet Goals 5 Frequency of Treatment Frequency Of Treatment Twice a Day Treatment Plan Physical Therapy Treatment Plan Bed Mobility Training,Transfer Training,Gait Training, Therapeutic Exercise,Balance Retraining,Post Op Education, Discharge Planning,Hot or Cold Pack,Neuromuscular Re-ed, Coordination Retraining,Manual Therapy Precautions Anterior Hip Precautions No Hip Extension,No Hip External Rotation Weight Bearing Status Weight Bearing Status Weight Bear as Tolerated Allowed Weight Bearing Amount (enter % RLE WBAT or #) (%) Recommendations To Nursing Amount of Assist Needed 1 Person Assist Discharge Recommendations PT Discharge Recommendations SNF Rehab Transportation Needs at Discharge Private Vehicle,Wheelchair/ Cabulance
--- NOTE | 2022-02-05 11:25 | PM.EVENT ---
Event Note Event Note (Rapid Response, Code, or fall): In review this morning, patient's BP are improved. Patient has resumed home metoprolol. Medicine will sign off at this time. Please do not hesitate to contact hospitalist service with additional questions.
--- NOTE | 2022-02-05 11:39 | CM.DANOTE ---
DCP: Case received, EMR reviewed and met with patient. Introduced self and role. Was able to obtain information regarding patient's baseline activity status prior to her surgery. DCP assessment completed with information currently available. Patient is a 71 year old female who admitted yesterday morning to the care of the orthopedic team. PCP: Dr. Lanier. Payer: confirmed: [employer] Medicare. Patient came to the hospital for a surgical procedure. She had right total hip arthroplasty. Patient has history ofunilateral secondary ostroarthritis of the hip. Met with patient in her room. She was sitting up in bed, alert and oriented. She resides in [place]. She lives alone, but indicated that her son, Trevin, is here from [place], and will be helping her out. Patient indicated that at her baseline she drives, she does have a cane and walker for home use as needed. She has not yet worked with P.T. P: Patient does have discharge orders for today, but will need to see how she does with P.T. Luz Maria Francois RN/Seismic Engineer Discharge Planning/Care Management CM Discharge Assessment Start: 02/05/22 11:32 Freq: Status: Active Protocol: Document 02/05/22 11:33 (Rec: 02/05/22 11:39 [id number]) Discharge Planning Assessment Assigned Embossing Machine Operator Luz Maria Francois RN/Seismic Engineer Advance Directives? Yes Advance Directives on File No History Provided By Patient,Medical Record Prior Living Arrangements House Household Members none Comment Son from [place] will be staying with her. Type of transporation used prior to Drives own vehicle admit Willing to Return to Facility? No Independent with ADL's Yes Is patient alert and oriented? Yes DME Already Rented / Owned FWW / Walker,Cane Patient/Family Preference OP PT Therapy Barriers to Discharge No Comment But will see how patient does with P.T. Discharge Plan Home Transportation Arrangement Son Referrals Initiated Other Additional Comment Will have to see how patient does with P.T. Whiteboard Updated in Patient Room with Yes name and ext. # of Embossing Machine Operator Review Status In Process Next Review Type Continued Stay Review Pre-Anesthesia Assessment Start: 01/27/22 10:41 Freq: Status: Active Protocol: Document 01/27/22 10:41 CAB (Rec: 01/27/22 12:59 CAB [id number]) Pre-Anesthesia Assessment Preferred Name Edye Patient Information Reviewed Via Phone Assessment Assessment Completed With Patient Diagnostic Results BMP/CMP,CBC,EKG,Urinalysis Comment Outside labs/ECG scanned, COVID screen-needs to schedule Primary Care Provider Garima Lanier Seen Specialist in Last 12 Months Yes Specialist Seen Psychiatric Social Worker Supervisor,Contract Analyst, Oncologist,Orthopedist,Sleep specialist,Other Comment Hematology consult scanned and in surgery folder for dos Primary Language Uzbek Career Placement Specialist Required No Height 5 ft 5 in Weight 185 lb Body Mass Index (BMI) 30.7 Hearing Ability Normal Visual Assist Contacts,Glasses Dentition Type Teeth, Natural Present Barriers to Learning None Hx Anesthesia Reactions Yes: years ago, violent reaction from a gas they used, but told they don't use Hx Family Anesthesia Reaction No Hx Malignant Hyperthermia No Hx Blood Transfusions Yes: Multiple r/t bleeding disorder. Anesthesia Review Requested Yes: Surgeon requested re: Bleeding disorder alcohol intake current alcohol intake frequency 3 or more drinks per day Smoking Status Never smoker Substance Use Type does not use Pain Present Pain Reported Musculoskeletal Symptoms Abnormal Gait,Back Pain, Difficulty Walking,Joint Pain History of Falling (Recent or History of Yes ) Patient is completely paralyzed or No completely immobile Prosthesis or Orthotic Device Cane,Front Wheel Walker Mental Status Oriented to own ability Is patient on oxygen? No Does patient have COTO/SOB No Hx Sleep Apnea Yes CPAP/BIPAP use prescribed and used routinely Will Bring CPAP/BIPAP DOS Yes Currently Taking a Beta Byron Yes: Metoprolol Can You Climb a Flight of Stairs Without Yes SOB Hx Chest Pain No Hx SOB No Hx Syncope or Dizziness Yes: Syncope r/t anemia Anti-Coagulant Therapy No Has a Tax Appraiser No Cardiac Testing No Hx Pacemaker/ICD No Pacemaker Rep Required? No Cardiac Clearance Received Not Applicable Diet Type At Home Regular,Low Carb,Low Fat dysphagia No Urinary Catheter Present No Hx Urinary Self Catheterization No Diabetes No HgbA1C 5.1 Date 01/06/22 Patient No Lactating No Hx Drug Resistant Organism No Presence of External or Internal Medical Yes: Lumbar hardware, CPAP, Devices right shoulder Have you had any close contact with No someone diagnosed with COVID-19? Received a COVID vaccine? Yes Received all doses? Yes Marital Status Single Lives With none Prior Living Arrangements House Number of Floors (Floors) Two Floors Support System Child/Children Does the Patient Have Assistance After Yes: Son will stay w/pt to Surgery assist with care at DC Patient Discharge Plan Description Home Health Comment Pt advised overnight length of stay per surgeon Feels Safe in Current Environment Yes Been Physically Hurt or Threatened By a No Person in Current Environment Do you have thoughts of harming yourself None or others? Are you currently considering suicide? No Do you have a plan to hurt yourself or No Plan others? Do You Have Any Spiritual Beliefs That No May Affect Your HC Choices? Do You Have Any Cultural Practices That No May Affect Your HC Choices? Comment Jain Who Can We Speak to About Patient's Care Family, friends Identifying Code for Release of Patient Declines to issue Information Health Care Proxy/Next of Kin Jeb márquez) Health Care Proxy Emergency Contact Name Jeb márquez) Emergency Contact Advance Directives? Yes Advance Directives on File No Requested Patient Bring Advanced Yes Directives DOS Power of Computer Help Desk Representative Yes Power of Computer Help Desk Representative Name Jeb márquez) Power of Computer Help Desk Representative PAC Instructions Bring CPAP/BIPAP,Do not shave/ clip surgical site,Durable medical equipment,Medications to take/avoid,Nasal antibiotic ,No ETOH/petroleum product on skin DOS,NPO,Pre-surgical wash ,Sturdy shoes/comfortable clothes,Do not bring valuables and remove jewelry
[2022-02-05] MEDS: OXYCODONE IR 10 MG TABLET 20 MG PO (11:52)
--- NOTE | 2022-02-05 13:45 | PT.IPTN ---
Current Diagnoses Other acute postprocedural pain (02/04/22) Other unilateral secondary osteoarthritis of hip (02/04/22) Pain in right hip (02/04/22) Pain in unspecified hip (02/04/22) Idiopathic aseptic necrosis of right femur (02/04/22) Presence of right artificial hip joint (02/04/22) Surgery Performed Operation Date: 02/04/22 10:45 Actual Procedures p Total Hip Arthroplasty/Anterior Approach(Right) - Pat Hernandes MD Physical Therapy Treatment Note M2 PT-IP Current Condition Start: 02/05/22 13:15 Freq: NEEDED Status: Discharge Protocol: Document 02/05/22 10:40 AB (Rec: 02/05/22 13:34 AB [id number]) Physical Therapy Current Condition Current Condition Evaluation Date 02/05/22 Treatment Diagnosis s/p R JENNIE anterior approach; difficulty in walking Onset Date 02/04/22 M3 PT-IP Subjective Start: 02/05/22 13:15 Freq: NEEDED Status: Discharge Protocol: Document 02/05/22 13:12 KS (Rec: 02/05/22 16:25 KS [id number]) Subjective Physical Therapy Visit Type Type Treatment Note Visit Start Time 13:12 Visit Stop Time 13:45 Total Visit Minutes 33 Notes pts son present for caregiver training Number of PLANNING ASSOCIATE Visits 1 Physical Therapy Visit Comments Patient Comments agreeable to do PT M4 PT-IP Mobility and Gait Start: 02/05/22 13:15 Freq: NEEDED Status: Discharge Protocol: Document 02/05/22 13:12 KS (Rec: 02/05/22 16:25 KS [id number]) PT-Bed Mobility Assessment Rolling Level of Assist Contact Guard Assistance,1 Person Assistance Supine to Sit Supine to Sit Minimal Assistance,1 Person Assistance Sit to Supine Sit to Supine Standby Assistance Scooting Scooting to Edge of Bed Contact Guard Assistance PT-Transfer Assessment Sit to and From Stand Sit to and from Stand Minimal Assistance,1 Person Assistance,Use of Upper Extremities Equipment Transfer Assistive Device Gait Belt,Front Wheeled Walker Orthotic/Prosthetic Devices or Brace: No Transfers Transfer Destination Bed Transfer Technique ambulated Transfer Ability Level of Assist Minimal Assistance,1 Person Assistance,Use of Upper Extremities Comments Mobility Comments Pt in bed upon arrival and agreeable to PT. CGA for logroll, Min A for sup<>sit, CGA for scooting EOB. Demonstrated gait belt application, FWW stabilizing, and how to provide assist to pts son for pt sit<>Stand, which she completed w/ Min A. Pt then ambulated ~50 ft around room w/ FWW and son providing CGA. She then ascended/descended 3 platform steps w/ SPC and CONTRACT PARALEGAL and Min A provided by her son. Pt remains slightly unsteady on her feet, but her and her son state they feel safe to manage it at home. Pt then returned to bed and was able to sit<> sup SBA. Pt left in bed w/ all needs in reach. Gait Assessment Gait Gait Assistance Required: Contact Guard Assist,Minimum Assistance,1 Person Assist Distance (Feet) 50 Able to Maintain Weight Bearing Status Yes During Gait Assistive Devices Assistive Device Gait Belt,Front Wheeled Walker Orthotic/Prosthetic Devices or Brace: No Gait Deviations General Gait Pattern Antalgic,Decreased Stride Length,Decreased Feet Clearance Factors Limiting Gait Function Factors Limiting Gait Function Decreased Activity Tolerance, Decreased Strength,Limited Range of Motion,Pain,Poor Balance,Poor Safety Awareness Comments Gait Comments Pt w/ decreased stride and foot clearance, no LOB but appears unsteady which she claims is her baseline. Pt agreeable to ambulate only w/ FWW and son assisting her w/ gait belt at home. Stair Climbing Assessment Evaluation Level of Assist On Stairs Minimal Assistance,1 Person Assistance Devices Stair Climbing Assistive Devices Straight Cane Technique/Endurance Stair Climbing Direction Ascend and Descend Stair Climbing Technique Step to Step Number of Steps Climbed 1 Stair Climbing Set # Repetitions (reps) 3 Comments Stair Climbing Comments Pt ascended/descended platform step w/ CONTRACT PARALEGAL and Min A and cues 3x. Pts son was able to provide assist and cues for sequencing on 2nd and 3rd steps. Pt and son state they feel confident to complete two steps leading into home. PT-Balance Assessment Sitting Balance and Reactions Static Sitting Balance Ability Good Dynamic Sitting Balance Ability Good Standing Balance and Reactions Static Standing Balance Ability Fair Dynamic Standing Balance Ability Fair Device Used FWW M5 PT-IP Objective Assessments Start: 02/05/22 13:15 Freq: NEEDED Status: Discharge Protocol: Document 02/05/22 10:40 AB (Rec: 02/05/22 13:34 AB [id number]) Orientation Orientation/Cognition Level of Alertness Alert Orientation Name,Situation Language Function Ability No Deficits Noted Safety Awareness Decreased Safety Awareness Memory Description No Deficits Noted Gross Range of Motion Lower Extremity ROM Assessment Within Functional Limits Strength Lower Extremity Strength Assessment Bilaterally Impaired Comments Strength Comments LLE: 3-/5 RLE 3+/5 Sensation Assessment Sensation Gross Sensation WNL Muscle Tone Muscle Tone WNL Yes M6 PT-IP Treatment Start: 02/05/22 13:15 Freq: NEEDED Status: Discharge Protocol: Document 02/05/22 13:12 KS (Rec: 02/05/22 16:25 KS [id number]) Physical Therapy Treatment Education Education Provided Precautions,Weight Bearing Status,Post-Op Packet,Safety M7 PT-IP Assessment and Plan Start: 02/05/22 13:15 Freq: NEEDED Status: Discharge Protocol: Document 02/05/22 13:12 KS (Rec: 02/05/22 16:25 KS [id number]) PT Summary Assessment and Plan Potential Rehabilitation Potential Fair Status of Condition at Evaluation Evolving Summary Impairments Pain,ROM,Strength,Balance, Coordination,Cognition,Bed Mobility,Transfers,Gait, Activity Tolerance Assessment Summary Pt showed improvements w/ mobility and activity tolerance this afternoon. Her son was able to provide all necessary cues and assist safely for bed mobility, sit<> stands, ambulation, and steps. Pt ambulated 50 ft and ascended/descended 3 platform steps w/ CONTRACT PARALEGAL, SPC, and Min A. She remains unsteady on her feet, but had no LOB and claims she is wobbly at baseline. Pt and son are confident they can safely go home this afternoon, however may benefit from additional acute PT. Goals Bed Mobility Goal Standby Assistance Transfer Goal Standby Assistance,Front Wheeled Walker Gait Goal Standby Assistance,Front Wheel Walker Gait Distance 150 Other Goals up/down 2 steps SPC/quad cane/ CONTRACT PARALEGAL min A Days to Meet Goals 5 Frequency of Treatment Frequency Of Treatment Twice a Day Treatment Plan Physical Therapy Treatment Plan Bed Mobility Training,Transfer Training,Gait Training, Therapeutic Exercise,Balance Retraining,Post Op Education, Discharge Planning,Hot or Cold Pack,Neuromuscular Re-ed, Coordination Retraining,Manual Therapy Precautions Anterior Hip Precautions No Hip Extension,No Hip External Rotation Weight Bearing Status Weight Bearing Status Weight Bear as Tolerated Allowed Weight Bearing Amount (enter % RLE WBAT or #) (%) Recommendations To Nursing Amount of Assist Needed 1 Person Assist Discharge Recommendations PT Discharge Recommendations Home with 20/04 Assist Available,Home Health,SNF Rehab Transportation Needs at Discharge Private Vehicle,Wheelchair/ Cabulance
--- NOTE | 2022-02-05 15:54 | PC.NURSE ---
Pt discharged at 1550, escorted off floor in wheelchair, accompanied by hospital staff and son. IV removed, discharge teaching completed including follow up appointments, new medications and worsening symptoms. Questions and concerns answered. Pt left with all belongings.
== END 2022-02-05 15:55 | disposition home or self-care (01) | DRG 470 ==
LOC: OR 08:58 → AC 09:00
PROVIDERS: Admitting Provider Orthopaedic Surgery; PCP Internal Medicine Geriatric Medicine; Referring Provider Orthopaedic Surgery; Visit Provider Orthopaedic Surgery
PROC: 0SR906A Replacement of Right Hip Joint with Oxidized Zirconium on Polyethylene Synthetic Substitute, Uncemented, Open Approach (ICD-10-PCS; CPT 27130; principal; 2022-02-04 10:45)
DX: M87.051 Idiopathic aseptic necrosis of right femur (principal); M16.7 Other unilateral secondary osteoarthritis of hip; M81.0 Age-related osteoporosis without current pathological fracture; D69.9 Hemorrhagic condition, unspecified; I95.81 Postprocedural hypotension; F90.9 Attention-deficit hyperactivity disorder, unspecified type; F32.A Depression, unspecified; I10 Essential (primary) hypertension; Z20.822 Contact with and (suspected) exposure to COVID-19
CPT/HCPCS: 36415; 73502; 76000; 85014; 85018; 87635; 97116; 97162; 97530; C1776; C9803; C9290; J0171; J0690; J1170; J2405; J2704; J3010

== ENCOUNTER 2022-03-09 22:24 | Inpatient (IN) | payer MEDICARE, SELFPAY ==
[2022-02-04 17:50] VITALS: BMI 31.6
[2022-03-10 04:25] VITALS: BP 157/96; PULSE 72; RESP 18; TEMP 36.5; O2SAT 95
--- NOTE | 2022-03-10 04:29 | P.HP_ITS ---
History of Present Illness History of Present Illness Date Patient Seen: 03/10/22 Date of Onset of Symptoms: 03/03/22 Chief complaint: Emergency admit Narrative: Patient is a 72-year-old very pleasant female with a significant history of arthritis, multiple surgeries in the past had a right hip arthroplasty on February 04, followed by Dr. Hernandes. Patient recovered well from the surgery and was able to ambulate for 2 weeks. Patient started to having worsening symptoms, pain, swelling around the surgical site, was treated for seroma/hematoma, followed by Dr. Hernandes's PA during follow-up visits. Patient was given antibiotics, steroids for inflammation, did not improve. Past 3 days patient unable to walk because of the pain, discomfort, went to [facility], noted to have fracture, transferred here for further care under Dr. Hernandes. Patient complains 5/10 pain in the right hip, unable to walk, her movement of right lower extremity significantly limited because of the pain. She was given 8 mg of IV morphine before the transport. She denies any fevers or chills. Discoloration and swelling, some hyperpigmentation around the surgical area noted. Surgical scar is healing fine. No apparent discharge noted the surgical site. After pain medication, patient seems to be comfortable,. Patient History Medical History Actinic keratoses ADHD Arthritis B12 deficiency Back pain with history of spinal surgery BCC (basal cell carcinoma) Bleeding diathesis Cervical spondylosis Chronic pain DDD (degenerative disc disease) Depression Gastric ulcer (02/17/20) History of Mohs micrographic surgery for skin cancer HTN (hypertension) Hypersomnia Iron deficiency anemia Neurogenic claudication LEO (obstructive sleep apnea) Osteoarthritis Osteoporosis Psoriasis Psoriatic arthritis RBBB (right bundle branch block) RLS (restless legs syndrome) Rosacea SCC (squamous cell carcinoma) Scoliosis Sicca syndrome Spinal stenosis Spontaneous bruising Surgical History History of carpal tunnel surgery of left wrist History of carpal tunnel surgery of right wrist History of gastric bypass (~2004) History of hysterectomy (1995) History of reverse total replacement of right shoulder joint History of spinal fusion Hx of arthroscopy of left knee Hx of arthroscopy of right knee Hx of cholecystectomy Hx of toe surgery Family & Social History Social History: Her primary contact center associate her son lives in [place], named Harry (Jeb) 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 She has 3 dogs at home household members none Tobacco & Substance use: Smoking Status Never smoker alcohol intake current alcohol intake frequency 0-2 drinks per day Substance Use Type other Meds Home Medications and Allergies Home Medications Medication Instructions Recorded Confirmed Type bupropion HCl 150 mg tablet,12 hr 150 mg PO BID 01/27/22 03/10/22 History sustained-release dextroamphetamine-amphetamine 10 10 mg PO BID 01/27/22 03/10/22 History mg tablet (Adderall) docusate sodium 100 mg capsule 300 - 500 mg PO DAILY 01/27/22 03/10/22 History (Colace) doxycycline hyclate 100 mg capsule 100 mg PO DAILY rosacea 01/27/22 03/10/22 History duloxetine 60 mg capsule,delayed 60 mg PO DAILY 01/27/22 03/10/22 History release meloxicam 15 mg tablet 15 mg PO DAILY 01/27/22 03/10/22 History metoprolol succinate 100 mg 100 mg PO DAILY 01/27/22 03/10/22 History tablet,extended release 24 hr oxycodone 20 mg tablet 20 mg PO BID 01/27/22 03/10/22 History pantoprazole 40 mg tablet,delayed 40 mg PO BID 01/27/22 03/10/22 History release pregabalin 150 mg capsule 150 mg PO BID 01/27/22 03/10/22 History tizanidine 2 mg tablet 2 mg PO Q8H PRN Muscle Spasm 01/27/22 03/10/22 History aspirin 81 mg capsule 81 mg PO DAILY #1 cap 02/05/22 03/10/22 Rx hydromorphone 2 mg tablet 2 mg PO Q3H PRN pain, severe #20 02/05/22 03/10/22 Rx tabs Allergies Allergy/AdvReac Type Severity Reaction Status Date / Time aspirin Allergy Severe Prolongs Verified 02/04/22 09:14 bleeding - has a bleeding disorder gentamicin Allergy Severe My face Verified 02/04/22 09:14 and eyes blew up Sulfa (Sulfonamide Allergy Severe Rash Verified 02/04/22 09:14 Antibiotics) Review of Systems Review of Systems Narrative: Constitutional, ENT, eye, cardiovascular, respiratory, GI, musculoskeletal, neurologic, psychiatric, skin, endocrine review of systems performed, negative other than as mentioned above in HPI. Exam Narrative Exam Narrative: Patient seems to be in mild distress because of the pain, lying in the bed, able to make conversation, follows commands. Very pleasant. Right upper extremity movements are limited because of the pain, unable to lift her leg over the bed. Area on the right hip region is swollen, parental lump present and the right anterior hip region. Surgical scar seems to be healing well. Discoloration around the lump noted, possibly some mottling. Swelling feels firm in co nsistency. Mild tenderness on palpation. Patient is obese. Constitutional, ENT, eyes, respiratory, cardiovascular, GI, skin, neuro, psychiatric, extremity examination performed, organ system evaluation negative other than as mentioned above. Assessment & Plan Assessment and plan (1) Acute postoperative pain of hip: Status: Acute (2) Status post total hip replacement, right: Status: Acute (3) Arthritis: Status: Acute (4) Spontaneous bruising: Status: Acute (5) LEO (obstructive sleep apnea): Problem details: Wears CPAP Status: Acute (6) HTN (hypertension): Status: Acute (7) Bleeding diathesis: Status: Acute (8) Back pain with history of spinal surgery: Status: Acute Plan Patient transferred from outside hospital for inpatient admission, expected length of stay greater than 3 days Appropriate pain control, IV fluids, IV antibiotics Zosyn Surgery evaluation by Dr. Hernandes, potential surgical intervention, final recommendations pending NPO, preop evaluation-caution with a bleeding disorder, DDAVP availability-check with pharmacy Dr. Hernandes very familiar with this patient, hematology recommendations related to surgery are in the chart from previous admission Continue home blood pressure medications, we will follow patient, manage medical problems DVT and GI prophylaxis reviewed Patient is full code, son updated regarding the plan, answered all questions Time Spent With Patient Critical Care time: I spent a total of [] minutes of critical care time on this patient's care today; this time is exclusive of procedural time.
[2022-03-10] MEDS: HYDROMORPHONE 1 MG INJ IV (04:30)
[2022-03-10 05:11] VITALS: BMI 32.3
[2022-03-10] MEDS: PIPERACILLIN/TAZO 4.5 GM in SODIUM CHLORIDE 0.9% 100 ML IV (05:41)
[2022-03-10] MEDS: SODIUM CHLORIDE 0.9% 1,000 ML 100 ML IV ×2 (05:41→17:31)
[2022-03-10] MEDS: OXYCODONE IR 5 MG TABLET 10 MG PO ×3 (05:41→22:18)
--- NOTE | 2022-03-10 06:53 | PC.NURSE ---
Pt admitted from [facility] ER around 0400 due to a possible abscess/infection to right hip. Pt had an ORIF at this hospital with Dr. Hernandes on 03/07/22 and was discharge on 03/08/2022. Pt was doing well at home but started to have increase pain and was having a hard time ambulating at home. Pt callef 911 and since she lives in [place] she was transported to [place]. Pt currently NPO for possible surgery. Pt given 1 mg ivp dilaudid upon arrival and 10 mg of oxycodone po around 0600. PT requesting Pure Wick to help with urination.
[2022-03-10 07:18] LABS: Add Manual Diff / Slide Review NO; Basophils Absolute Auto 0 /uL (0-100); Basophils Percent Auto 0.3 % (0-2); Eosinophils Absolute Auto 100 /uL (0-450); Eosinophils Percent Auto 3.3 % (2-4); Hematocrit 26.8 % (36-46); Hemoglobin 9.1 g/dL (12.0-16.0); Lymphocytes Absolute Auto 600 /uL (1100-4500); Lymphocytes Percent Auto 13.9 % (25-40); Mean Corpuscular Hemoglobin 35.5 PG (26-34); Mean Corpuscular Volume 104.5 fL (80-100); Monocytes Absolute Auto 200 /uL (0-900); Monocytes Percent Auto 5.2 % (3-14); Neutrophils Absolute Auto 3100 /uL (1500-7000); Neutrophils Percent Auto 77.3 % (50-75); Platelet Count 168 X10^3/uL (150-400); Red Blood Cell Count 2.56 X10^6/uL (4.0-5.2); Red Cell Distribution Width 18.1 % (11.6-14.8)
[2022-03-10 07:21] LABS: INR 1.1 (0.9-1.3); Prothrombin Time 12.4 SECONDS (10.1-12.7)
[2022-03-10 07:26] LABS: Alanine Aminotransferase 27 IU/L (<35); Albumin 2.8 g/dL (3.5-5.0); Albumin Globulin Ratio 1.2 (1.0-2.8); Alkaline Phosphatase 140 U/L (38-126); Aspartate Aminotransferase 36 IU/L (14-36); BUN Creatinine Ratio 21.4 (6-22); Bilirubin Total 0.6 mg/dL (0.2-1.3); Blood Urea Nitrogen 12 mg/dL (7-17); Calcium 8.3 mg/dL (8.4-10.2); Carbon Dioxide 26 mmol/L (22-32); Chloride 106 mmol/L (98-107); Estimated Glomerular Filt Rate > 60 mL/min (>60); Globulin 2.4 g/dL (1.7-4.1); Glucose 76 mg/dL (80-110); HEMOLYSIS < 15 (0-50); Potassium 3.5 mmol/L (3.4-5.1); Sodium 137 mmol/L (137-145); Total Protein 5.2 g/dL (6.3-8.2)
[2022-03-10 08:25] VITALS: BP 151/89; PULSE 67; RESP 16; TEMP 36.6; O2SAT 98
--- NOTE | 2022-03-10 09:13 | PC.NURSE ---
Addendum entered by Viola Brennan R.N. 03/10/22 18:00: Per CHANDNI Milian will be here to see patient, most likely after clinic. Addendum entered by Viola Brennan R.N. 03/10/22 15:36: Patient just medicated with 1mg of dilaudid iv for complaints of pain to r.hip. She is visiting with her son. Addendum entered by Viola Brennan R.N. 03/10/22 15:18: Pt had her r.hip xray, patient crying and felt like radiology tecs were being to fast with her, she became frustrated. Both of techs were pleasant with patient, she was in a lot of pain. Patient perfers to move herself and her r.leg. This helps her to feel more relaxed and not hurried. Xray is done and patient is resting. Pure wick back in place with yellow urine in canister. CHANDNI Walker into see patient and she is on a general diet now and will be NPO after 0000. Will also give patient her medications. Original Note: Assess- Patient is alert and oriented x3. She is lying supine with legs straight. Patient has a swollen area to the distal end of her incision from hip sugery on the 10th. Area is pink and warm to touch. Possible abcess to area, per report. Patient has a consult with ortho, she is npo at this time, until surgeon comes to see her. No pain medication needed at this time. Explained to patient to use her call robert for needs and if she needs medication for pain. She has a pure wick placed and is voiding yellow urine.
--- NOTE | 2022-03-10 09:29 | CM.DANOTE ---
DCP Note: Payor: [facility] PCP: MD Yannick Pt is a andreea 72 y.o. F who was admitted from [facility] this AM due to a possible abscess/infection to the R hip. Pt currently had a surgery with Dr. Hernandes on 02/04 for a right hip arthroplasty. Pt was ambulating and recovering well for 2 weeks post surgery. For the last three days, pt was having difficulty in walking due to pain and discomfort and because pt lives in [place], pt was taken to [place] via ambulance. Once pt arrived at [facility], it was noted that pt has a fracture and was transferred to [facility] for further management by Dr. Hernandes. Currently awaiting surgical evaluation by Dr. Hernandes. Pt is currently NPO in anticipation for surgical management. DCP met with pt bedside this AM. Pt laying in bed watching TV. DCP introduced herself and role. Pt states that she currently lives in [place] and her Son, who is main DPOA, lives in [place] but just landed in [place] and is traveling up to the hospital to be with pt. Pt states that prior to surgery and admission, pt is independent and sometimes walks with a cane for better balance. Pt states her son set up a cleaning service to come to house and help pt with chores. Pt states following surgery on 02/04, she was feeling good but recently started having more pain and difficulty walking. Pt is currently seeing [facility] in [place] for PT needs. Pt denies any HH as she states, they are not that great. Pt states she does not want to go to a nursing facility due to her bad experience last time. Pt states that she would like to be able to go home with assistance and states she has many friends, neighbors, and nephew who would be willing to help. Pt did have some bouts of pain when conversing with DCP. Pt given opportunity to ask questions. Pt denies any at this time. Whiteboard updated with DCP contact info. Pt to call if any questions arise. P: Pt to see Dr. Hernandes for surgical consultation and further management. DCP to assess needs following any surgical management/Dr/PT recommendations. 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 Yes Advance Directives on File No History Provided By Patient,Medical Record Prior Living Arrangements House Household Members none Type of transporation used prior to Drives own vehicle admit Independent with ADL's Yes Is patient alert and oriented? Yes Needs Assistance With Home Chores / Shopping Comment Pt has assistance at home with cleaning and chores Caregiver for Another No Patient/Family Preference OP PT Therapy Comment But will see how patient does with P.T. Discharge Plan Home Transportation Arrangement Son Referrals Initiated Other Additional Comment Will have to see how patient does with P.T. Whiteboard Updated in Patient Room with Yes name and ext. # of Plastics Production Machine Operator Comment Instructed to call with any additional questions Review Status In Process Please Provide Date Initial DC 03/10/22 Assessment Was Performed Next Review Type Continued Stay Review
[2022-03-10] MEDS: PIPERACILLIN/TAZO 3.375 GM in SODIUM CHLORIDE 0.9% 100 ML IV ×2 (09:34→18:12)
[2022-03-10] MEDS: HYDROMORPHONE 0.5 MG INJ 1 MG IV ×2 (11:35→20:08)
[2022-03-10 12:00] VITALS: BP 141/87; PULSE 70; RESP 16; TEMP 36.5; O2SAT 96
--- NOTE | 2022-03-10 12:33 | DI.RAD.S_ITS ---
PROCEDURE: XR HIP W PEL IF DONE RT 2V INDICATIONS: hematoma/fracture r/o TECHNIQUE: AP pelvis with lateral view(s) of the right hip(s). COMPARISON: [facility], CR, XR HIP W PEL IF DONE RT 2V, 02/04/2022, 15:23. [facility], CR, XR HIP W PEL IF DONE RT 2V, 02/04/2022, 13:23. FINDINGS: Bones: No fractures identified. No dislocations. Right hip arthroplasty. No periprosthetic lucency to suggest loosening or infection. Pelvic ring appears intact. No suspicious bony lesions. Lumbar spine fixation hardware. Soft tissues: The visualized bowel gas pattern is normal. No suspicious soft tissue calcifications. IMPRESSION: No fracture identified. Right hip arthroplasty appears stable. Dictated by: Mark Krisnhamurthy M.D. on 03/10/2022 at 14:07 Approved by: Mark Krishnamurthy M.D. on 03/10/2022 at 14:09
--- NOTE | 2022-03-10 15:13 | PM.CN ---
History of Present Illness Consult details Date Patient Seen: 03/10/22 Time Patient Seen: 15:13 Chief complaint: Emergency admit Reason for consult: Right acetabular fracture s/p right JENNIE, hematoma Narrative: Patient is complaining of severe right hip pain. She is status post right total hip arthroplasty with Dr. Hernandes on 02/04/2022. The patient has had progressively worse and severe right hip pain. I saw her in the office last week for a postop visit. She has an extensive spinal fusion with a broken joann in and is a chronic pain management patient. She also has a significant bleeding disorder. At that time, I was concerned about some erythema near the incision, and a possible flare of her back pain. She is prescribed a steroid pack and Keflex at the time. There was a moderate hematoma noted at that time. Max temperature has been 99.4. The patient notes worsening hip pain, after ?hopping around. ?She attempted to call our office over the weekend, but did not receive a call back. She was therefore transferred to [facility] in [place] where it was deemed she had right acetabular fracture. Meds Home Medications and Allergies Home Medications Medication Instructions Recorded Confirmed Type bupropion HCl 150 mg tablet,12 hr 150 mg PO BID 01/27/22 03/10/22 History sustained-release dextroamphetamine-amphetamine 10 10 mg PO BID 01/27/22 03/10/22 History mg tablet (Adderall) docusate sodium 100 mg capsule 300 - 500 mg PO DAILY 01/27/22 03/10/22 History (Colace) doxycycline hyclate 100 mg capsule 100 mg PO DAILY rosacea 01/27/22 03/10/22 History duloxetine 60 mg capsule,delayed 60 mg PO DAILY 01/27/22 03/10/22 History release meloxicam 15 mg tablet 15 mg PO DAILY 01/27/22 03/10/22 History metoprolol succinate 100 mg 100 mg PO DAILY 01/27/22 03/10/22 History tablet,extended release 24 hr oxycodone 20 mg tablet 20 mg PO BID 01/27/22 03/10/22 History pantoprazole 40 mg tablet,delayed 40 mg PO BID 01/27/22 03/10/22 History release pregabalin 150 mg capsule 150 mg PO BID 01/27/22 03/10/22 History tizanidine 2 mg tablet 2 mg PO Q8H PRN Muscle Spasm 01/27/22 03/10/22 History aspirin 81 mg capsule 81 mg PO DAILY #1 cap 02/05/22 03/10/22 Rx hydromorphone 2 mg tablet 2 mg PO Q3H PRN pain, severe #20 02/05/22 03/10/22 Rx tabs Allergies Allergy/AdvReac Type Severity Reaction Status Date / Time aspirin Allergy Severe Prolongs Verified 02/04/22 09:14 bleeding - has a bleeding disorder gentamicin Allergy Severe My face Verified 02/04/22 09:14 and eyes blew up Sulfa (Sulfonamide Allergy Severe Rash Verified 02/04/22 09:14 Antibiotics) Review of Systems Constitutional Comments: Patient notes she has night sweats, max temperature of 99.4? Exam Vital Signs (past 8 hours): - 03/10/22 08:25 03/10/22 12:00 Temperature 97.8 F 97.7 F Pulse Rate 67 70 Respiratory Rate 16 16 Blood Pressure 151/89 H 141/87 H Pulse Oximetry 98 96 Oxygen Flow Rate 0 0 Oxygen Flow Rate 0 Narrative Exam Narrative: Pleasant 72-year-old female, resting comfortably in bed, no acute distress. Incision demonstrates a small scab in very mild erythema most proximal and and of the incision, there is a moderate to severe hematoma noted. No excessive warmth, very mild erythema, consistent with a hematoma. Patient has severe right hip pain with a logroll as well as a pelvic compression squeeze. She is able to wiggle her toes. She has decreased sensation bilaterally, patient notes this is her baseline. Objective Labs Result Diagrams: 03/10/22 06:15 03/10/22 06:15 Labs: Laboratory Results - last 24 hr 03/10/22 03/10/22 03/10/22 06:15 06:15 06:15 WBC 4.0 L RBC 2.56 L Hgb 9.1 L Hct 26.8 L MCV 104.5 H MCH 35.5 H MCHC 34.0 RDW 18.1 H Plt Count 168 Neut % (Auto) 77.3 H Lymph % (Auto) 13.9 L [place] % (Auto) 5.2 Eos % (Auto) 3.3 Baso % (Auto) 0.3 Neut # (Auto) 3100 Lymph # (Auto) 600 L [place] # (Auto) 200 Eos # (Auto) 100 Baso # (Auto) 0 PT 12.4 INR 1.1 Sodium 137 Potassium 3.5 Chloride 106 Carbon Dioxide 26 BUN 12 Creatinine 0.56 Estimated GFR > 60 BUN/Creatinine Ratio 21.4 Glucose 76 L Calcium 8.3 L Total Bilirubin 0.6 AST 36 ALT 27 Alkaline Phosphatase 140 H Total Protein 5.2 L Albumin 2.8 L Globulin 2.4 Albumin/Globulin Ratio 1.2 PFSH Medical History Actinic keratoses ADHD Arthritis B12 deficiency Back pain with history of spinal surgery BCC (basal cell carcinoma) Bleeding diathesis Cervical spondylosis Chronic pain DDD (degenerative disc disease) Depression Gastric ulcer (02/17/20) History of Mohs micrographic surgery for skin cancer HTN (hypertension) Hypersomnia Iron deficiency anemia Neurogenic claudication LEO (obstructive sleep apnea) Osteoarthritis Osteoporosis Psoriasis Psoriatic arthritis RBBB (right bundle branch block) RLS (restless legs syndrome) Rosacea SCC (squamous cell carcinoma) Scoliosis Sicca syndrome Spinal stenosis Spontaneous bruising Surgical History History of carpal tunnel surgery of left wrist History of carpal tunnel surgery of right wrist History of gastric bypass (~2004) History of hysterectomy (1995) History of reverse total replacement of right shoulder joint History of spinal fusion Hx of arthroscopy of left knee Hx of arthroscopy of right knee Hx of cholecystectomy Hx of toe surgery Social History household members: none Tobacco & Substance Use Smoking Status: Never smoker alcohol intake: current substance use type: does not use Assessment & Plan Assessment & Plan narrative: -right hip acetabular fracture status post right total hip arthroplasty: Acetabular fracture and shifting of the cup noted on a CT scan done at [facility] in [place] yesterday. Comparing sequential x-rays, the cup has shifted since her initial x-ray in January. Current white count is 4.0, CRP is 181, sed rate is 107, alk phos is 144. -hematoma/bleeding disorder: Postop hematoma versus possible abscess. White count is within normal limits, but CT scan showed possible air in the fluid collection. -extensive spine hardware with a history of a broken joann. Chronic pain management patient -appreciate the hospitalist managing her medical issues. Plan: Per Dr. Hernandes, patient will need factor replacement prior to surgery. Possible surgery tomorrow. Okay to eat today if not septic. We will make her NPO after midnight tonight. Dr. Hernaneds will formally evaluate the patient. Time Spent With Patient Critical Care time: I spent a total of [] minutes of critical care time on this patient's care today; this time is exclusive of procedural time.
[2022-03-10 16:00] VITALS: BP 133/72; PULSE 78; RESP 16; TEMP 36.6; O2SAT 98
[2022-03-10] MEDS: METOPROLOL ER 50 MG TABLET 100 MG PO (16:42)
[2022-03-10] MEDS: buPROPion SR 150 MG TAB PO ×2 (16:42→20:08)
[2022-03-10] MEDS: POTASSIUM CHLORIDE 20 MEQ TAB 40 MEQ PO (16:42)
[2022-03-10] MEDS: PANTOPRAZOLE DR 40 MG TABLET PO ×2 (16:43→20:08)
[2022-03-10] MEDS: PREGABALIN 75 MG CAPSULE 150 MG PO ×2 (16:43→20:08)
[2022-03-10] MEDS: DULOXETINE 30 MG CAPSULE 60 MG PO (16:43)
--- NOTE | 2022-03-10 17:15 | PM.PN.1 ---
Subjective Subjective Date Patient Seen: 03/10/22 Interval history: Continues to have severe R leg pain with movement. Pharmacy is working on obtaining LAURE-7 for possible surgery tomorrow per orthopedics and based on hematology note. Exam Vital Signs (past 8 hours): - 03/10/22 12:00 Temperature 97.7 F Pulse Rate 70 Respiratory Rate 16 Blood Pressure 141/87 H Pulse Oximetry 96 Oxygen Flow Rate 0 Oxygen Flow Rate 0 Narrative Exam Narrative: Gen: pleasant female, no acute distress but is uncomfortable with minimal movement and grimaces CV: RRR no m/r/g Pulm: CTA b/l Ext: no edema Objective Labs Result Diagrams: 03/10/22 06:15 03/10/22 06:15 Labs: Laboratory Results - last 24 hr 03/10/22 03/10/22 03/10/22 06:15 06:15 06:15 WBC 4.0 L RBC 2.56 L Hgb 9.1 L Hct 26.8 L MCV 104.5 H MCH 35.5 H MCHC 34.0 RDW 18.1 H Plt Count 168 Neut % (Auto) 77.3 H Lymph % (Auto) 13.9 L [place] % (Auto) 5.2 Eos % (Auto) 3.3 Baso % (Auto) 0.3 Neut # (Auto) 3100 Lymph # (Auto) 600 L [place] # (Auto) 200 Eos # (Auto) 100 Baso # (Auto) 0 PT 12.4 INR 1.1 Sodium 137 Potassium 3.5 Chloride 106 Carbon Dioxide 26 BUN 12 Creatinine 0.56 Estimated GFR > 60 BUN/Creatinine Ratio 21.4 Glucose 76 L Calcium 8.3 L Total Bilirubin 0.6 AST 36 ALT 27 Alkaline Phosphatase 140 H Total Protein 5.2 L Albumin 2.8 L Globulin 2.4 Albumin/Globulin Ratio 1.2 PFSH Medical History Actinic keratoses ADHD Arthritis B12 deficiency Back pain with history of spinal surgery BCC (basal cell carcinoma) Bleeding diathesis Cervical spondylosis Chronic pain DDD (degenerative disc disease) Depression Gastric ulcer (02/17/20) History of Mohs micrographic surgery for skin cancer HTN (hypertension) Hypersomnia Iron deficiency anemia Neurogenic claudication LEO (obstructive sleep apnea) Osteoarthritis Osteoporosis Psoriasis Psoriatic arthritis RBBB (right bundle branch block) RLS (restless legs syndrome) Rosacea SCC (squamous cell carcinoma) Scoliosis Sicca syndrome Spinal stenosis Spontaneous bruising Surgical History History of carpal tunnel surgery of left wrist History of carpal tunnel surgery of right wrist History of gastric bypass (~2004) History of hysterectomy (1995) History of reverse total replacement of right shoulder joint History of spinal fusion Hx of arthroscopy of left knee Hx of arthroscopy of right knee Hx of cholecystectomy Hx of toe surgery Social History household members: none Smoking Status: Never smoker alcohol intake: current substance use type: does not use Assessment & Plan Assessment & Plan narrative: This is a 71-year-old female with the past medical history chronic iron deficiency anemia, status post gastric bypass surgery, prior significant bleeding postoperatively who underwent right JENNIE for advanced hip osteoarthritis with Dr. Hernandes, presented to OSH ER with R hip pain found to have fracture and fluid collection. Transferred here for further management with Dr. Hernandes. Surgery planned for tomorrow. 1. -right hip acetabular fracture status post right total hip arthroplasty - management per orthopedic surgery - ddAVP is currently here at this hospital and available for use. This is to be given 30 minutes prior to procedure and 12 hours after. rFVIIa (LAURE-7) to be given if significant bleeding. Pharmacy not have LAURE-7 but are working on making sure it is available if needed. Unclear as to the timing of when it will be available. - would recommend making sure this is available prior to operative interventions 2. Postop hematoma versus possible abscess. - continue antibiotics for now. will continue to monitor WBC and Hg. She does not appear ill. 3. Chronic iron deficiency anemia - outpatient labs with Hg of 10.3 in 09/2021. It was 8.8 during her prior surgery for R JENNIE. It is 9.1 this AM. - continue to monitor. 4. ADHD - continue home adderall 5. Depression - continue home buproprion Code: Full, surrogate decision maker is her son Time Spent With Patient Critical Care time: I spent a total of [] minutes of critical care time on this patient's care today; this time is exclusive of procedural time. Quality VTE Deep Vein Thrombosis/Pulmonary Embolism Present on Admission: No
--- NOTE | 2022-03-10 19:27 | PM.HP.1 ---
History of Present Illness History of Present Illness Date Patient Seen: 03/10/22 Time Patient Seen: 19:30 Chief complaint: Emergency admit Narrative: This is a 72-year-old extremely complicated female with a history of a very extensive spine surgery with extensive fusion from the sacrum to her upper thoracic spine and known osteoporosis. She also has a history of a bleeding disorder. 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 She previously underwent a right total hip arthroplasty through an anterior approach. She was seen in the postoperative period and noted to have findings consistent with a possible wound hematoma or seroma. Last week she was getting up from a chair when she noticed some increased right hip pain. She notes that her right hip pain as progressive the gotten worse. She was seen last week and had an x-ray which did not show evidence of a significant abnormality. She then had marked worsening and severe pain and was transported to [facility]. She had a CT scan which showed evidence of an acetabular fracture and a right hip fluid collection and hematoma possible infection. She then returned on hospital for treatment. She denies a history of significant wound drainage. She has really not had fevers or chills at home. Her temperature was reportedly about 99 at [facility]. She does say that she has been having severe pain overnight. Patient History Medical History Actinic keratoses ADHD Arthritis B12 deficiency Back pain with history of spinal surgery BCC (basal cell carcinoma) Bleeding diathesis Cervical spondylosis Chronic pain DDD (degenerative disc disease) Depression Gastric ulcer (02/17/20) History of Mohs micrographic surgery for skin cancer HTN (hypertension) Hypersomnia Iron deficiency anemia Neurogenic claudication LEO (obstructive sleep apnea) Osteoarthritis Osteoporosis Psoriasis Psoriatic arthritis RBBB (right bundle branch block) RLS (restless legs syndrome) Rosacea SCC (squamous cell carcinoma) Scoliosis Sicca syndrome Spinal stenosis Spontaneous bruising Surgical History History of carpal tunnel surgery of left wrist History of carpal tunnel surgery of right wrist History of gastric bypass (~2004) History of hysterectomy (1995) History of reverse total replacement of right shoulder joint History of spinal fusion Hx of arthroscopy of left knee Hx of arthroscopy of right knee Hx of cholecystectomy Hx of toe surgery Family & Social History Social History: household members none Prior Living Arrangements House Safety & Behavioral: Feels Safe in Current Yes Environment Tobacco & Substance use: Smoking Status Never smoker alcohol intake current alcohol intake frequency 0-2 drinks per day Substance Use Type other Meds Home Medications and Allergies Home Medications Medication Instructions Recorded Confirmed Type bupropion HCl 150 mg tablet,12 hr 150 mg PO BID 01/27/22 03/10/22 History sustained-release dextroamphetamine-amphetamine 10 10 mg PO BID 01/27/22 03/10/22 History mg tablet (Adderall) docusate sodium 100 mg capsule 300 - 500 mg PO DAILY 01/27/22 03/10/22 History (Colace) doxycycline hyclate 100 mg capsule 100 mg PO DAILY rosacea 01/27/22 03/10/22 History duloxetine 60 mg capsule,delayed 60 mg PO DAILY 01/27/22 03/10/22 History release meloxicam 15 mg tablet 15 mg PO DAILY 01/27/22 03/10/22 History metoprolol succinate 100 mg 100 mg PO DAILY 01/27/22 03/10/22 History tablet,extended release 24 hr oxycodone 20 mg tablet 20 mg PO BID 01/27/22 03/10/22 History pantoprazole 40 mg tablet,delayed 40 mg PO BID 01/27/22 03/10/22 History release pregabalin 150 mg capsule 150 mg PO BID 01/27/22 03/10/22 History tizanidine 2 mg tablet 2 mg PO Q8H PRN Muscle Spasm 01/27/22 03/10/22 History aspirin 81 mg capsule 81 mg PO DAILY #1 cap 02/05/22 03/10/22 Rx hydromorphone 2 mg tablet 2 mg PO Q3H PRN pain, severe #20 02/05/22 03/10/22 Rx tabs Allergies Allergy/AdvReac Type Severity Reaction Status Date / Time aspirin Allergy Severe Prolongs Verified 02/04/22 09:14 bleeding - has a bleeding disorder gentamicin Allergy Severe My face Verified 02/04/22 09:14 and eyes blew up Sulfa (Sulfonamide Allergy Severe Rash Verified 02/04/22 09:14 Antibiotics) Review of Systems Review of Systems Narrative: She denies significant fevers or chills, she notes that she has sat down, hard but she has not had a major fall, style had any shortness breath or chest pain, she did have swelling and pitting edema in the right lower extremity. Exam Vital Signs (past 8 hours): - 03/10/22 12:00 03/10/22 16:00 Temperature 97.7 F 97.8 F Pulse Rate 70 78 Respiratory Rate 16 16 Blood Pressure 141/87 H 133/72 Pulse Oximetry 96 98 Oxygen Flow Rate 0 0 Oxygen Flow Rate 0 Narrative Exam Narrative: HEENT is benign, lungs are clear cor regular rate and rhythm, abdomen soft and benign, right hip area the incision is healing there is some slight erythema she has obvious substantial swelling in the anterior aspect of her right leg which is soft and compressible but tender to palpation, she has significant pain with attempted range of motion in her right hip, her calf to soft distally, she can fire her toe flexors and extensors, Objective Labs Result Diagrams: 03/10/22 06:15 03/10/22 06:15 Labs: Laboratory Results - last 24 hr 03/10/22 03/10/22 03/10/22 06:15 06:15 06:15 WBC 4.0 L RBC 2.56 L Hgb 9.1 L Hct 26.8 L MCV 104.5 H MCH 35.5 H MCHC 34.0 RDW 18.1 H Plt Count 168 Neut % (Auto) 77.3 H Lymph % (Auto) 13.9 L [place] % (Auto) 5.2 Eos % (Auto) 3.3 Baso % (Auto) 0.3 Neut # (Auto) 3100 Lymph # (Auto) 600 L Cassia # (Auto) 200 Eos # (Auto) 100 Baso # (Auto) 0 PT 12.4 INR 1.1 Sodium 137 Potassium 3.5 Chloride 106 Carbon Dioxide 26 BUN 12 Creatinine 0.56 Estimated GFR > 60 BUN/Creatinine Ratio 21.4 Glucose 76 L Calcium 8.3 L Total Bilirubin 0.6 AST 36 ALT 27 Alkaline Phosphatase 140 H Total Protein 5.2 L Albumin 2.8 L Globulin 2.4 Albumin/Globulin Ratio 1.2 CT scan outside from [facility] shows a right complex acetabular fracture with a crack also in the inferior pubic rami, there was some mild displacement, right acetabulum slightly shifted in comparison to anatomic position AP pelvis and a lateral of the right hip shows a right total hip arthroplasty acceptable femoral positioning, change in the position of the acetabulum with an acetabular fracture. Assessment & Plan Assessment and plan (1) Bleeding diathesis: Status: Acute (2) Acute postoperative pain of hip: Status: Acute (3) Status post total hip replacement, right: Status: Acute (4) Right acetabular fracture: Status: Acute (5) Hematoma of right hip: Status: Acute (6) Spontaneous bruising: Status: Acute (7) LEO (obstructive sleep apnea): Problem details: Wears CPAP Status: Acute (8) Back pain with history of spinal surgery: Status: Acute Plan I have recommended an aspiration of her right hip. She has obvious swelling in the anterior aspect of her hip. Her hip was prepped with ChloraPrep. Marcaine was injected. 22 gauge needle was used to aspirate about 18 cc of yellowish fluid slightly turbid. It was sent for stat Gram stain culture and sensitivity, cell count, and PCR. Assessment & Plan narrative: She has clear evidence of a right acetabular fracture. There is some change in the position of her cup. She has significant osteoporosis. She has a very extensive spinal fusion and had severe AVN of her femoral head on the right. I recommended that we 1st attempt to assess whether not she in fact has an infected periprosthetic joint. If there is evidence of an infection she may be mass managed with removal of her components giving her at least short-term a functional girdle stone. If there is no evidence of infection we will further assess her component position and attempt to decide whether she is better managed with open reduction internal fixation of her acetabulum and revision of her cup or if there is any chance she can be managed with conservative treatment. She has an extremely complicated patient. Concerns regarding infection, severe osteoporosis, severe stiffness of her spine with history of extensive hardware failure and bone failure due to severe osteoporosis was discussed in detail with her and her son. She also has a history of bleeding disorder and needs factor replacement at the time of surgical interventions. Her hip was aspirated today and we will check on the results of culture and sensitivity and Gram stain. Surgical intervention would likely be later in the week. Time Spent With Patient Critical Care time: I spent a total of [] minutes of critical care time on this patient's care today; this time is exclusive of procedural time. Quality VTE Deep Vein Thrombosis/Pulmonary Embolism Present on Admission: No
[2022-03-10 19:49] VITALS: BP 152/90; PULSE 71; RESP 18; TEMP 36.4; O2SAT 100
[2022-03-10 20:15] LABS: Body Fluid Red Blood Cells 6855 /uL; Body Fluid Tot Nucleated Cells 8051 /uL
--- NOTE | 2022-03-10 20:21 | PC.NURSE ---
Pt doesn't need to be NPO tonight per Dr. Hernandes since she will not be having surgery in the morning as original plan.
[2022-03-10 20:27] LABS: Body Fluid Appearance CLOUDY; Body Fluid Clotted? NO CLOTS PRESENT; Body Fluid Color YELLOW
[2022-03-10 20:40] LABS: Eosinophils Body Fluid 0 %; Mononuclear WBC Body Fluid 17 %; Other Cells Body Fluid 0 %; Polynuclear WBC Body Fluid 83 %
[2022-03-10 23:27] VITALS: BP 152/89; PULSE 73; RESP 16; TEMP 36.3; O2SAT 96
[2022-03-10] MEDS: TIZANIDINE 4 MG TABLET 2 MG PO (23:33)
[2022-03-11] MEDS: HYDROMORPHONE 0.5 MG INJ 1 MG IV ×4 (00:56→22:35)
[2022-03-11] MEDS: PIPERACILLIN/TAZO 3.375 GM in SODIUM CHLORIDE 0.9% 100 ML IV ×3 (00:57→17:20)
[2022-03-11 03:39] VITALS: BP 137/72; PULSE 66; RESP 16; TEMP 36.5; O2SAT 98
[2022-03-11] MEDS: OXYCODONE IR 5 MG TABLET 10 MG PO ×4 (03:40→21:08)
[2022-03-11] MEDS: SODIUM CHLORIDE 0.9% 1,000 ML 100 ML IV ×2 (05:27→15:37)
[2022-03-11 05:33] LABS: Add Manual Diff / Slide Review NO; Basophils Absolute Auto 0 /uL (0-100); Basophils Percent Auto 0.6 % (0-2); Eosinophils Absolute Auto 200 /uL (0-450); Hematocrit 27.9 % (36-46); Hemoglobin 9.3 g/dL (12.0-16.0); Lymphocytes Absolute Auto 500 /uL (1100-4500); Lymphocytes Percent Auto 12.3 % (25-40); Mean Corpuscular HGB Conc 33.3 % (30-36); Mean Corpuscular Hemoglobin 34.7 PG (26-34); Mean Corpuscular Volume 104.4 fL (80-100); Monocytes Absolute Auto 200 /uL (0-900); Monocytes Percent Auto 3.8 % (3-14); Neutrophils Absolute Auto 3300 /uL (1500-7000); Neutrophils Percent Auto 79.3 % (50-75); Platelet Count 190 X10^3/uL (150-400); Red Blood Cell Count 2.67 X10^6/uL (4.0-5.2); Red Cell Distribution Width 18.5 % (11.6-14.8); White Blood Cell Count 4.2 X10^3/uL (4.5-11.0)
[2022-03-11 05:39] LABS: BUN Creatinine Ratio 17.2 (6-22); Blood Urea Nitrogen 10 mg/dL (7-17); Calcium 8.2 mg/dL (8.4-10.2); Carbon Dioxide 25 mmol/L (22-32); Chloride 109 mmol/L (98-107); Estimated Glomerular Filt Rate > 60 mL/min (>60); Glucose 95 mg/dL (80-110); HEMOLYSIS < 15 (0-50); Potassium 4.1 mmol/L (3.4-5.1); Sodium 136 mmol/L (137-145)
[2022-03-11 07:00] VITALS: BP 152/88; PULSE 72; RESP 18; TEMP 35.8; O2SAT 97
[2022-03-11 08:38] LABS: Erythrocyte Sedimentation Rate > 140 MM/HR (0-20)
[2022-03-11 08:46] LABS: C-Reactive Protein Quant 14.7 mg/dL (<1.0)
--- NOTE | 2022-03-11 08:59 | PC.NURSE ---
Addendum entered by Viola Brennan R.N. 03/11/22 12:38: Rafita was given oxycodone earlier and helpful for r.hip pain. She had a bed bath, new pure wick placed to patients labial area, she is voiding yellow urine. Patient also had a bowel movement and is comfortable. Original Note: Patient is tolerating a general diet, her r.hip is outlined in black ink pen, area is pink and slightly warm to touch. Incision is swollen, possible hematoma present per Dr and PA. is awaiting some fluid results aspirated from incision to see if bacteria is growing before she does surgery. Patient is eating breakfast and voices no needs at this time.
[2022-03-11] MEDS: METOPROLOL ER 50 MG TABLET 100 MG PO (10:04)
[2022-03-11] MEDS: ASPIRIN EC 81 MG TABLET PO (10:05)
[2022-03-11] MEDS: DULOXETINE 30 MG CAPSULE 60 MG PO (10:05)
[2022-03-11] MEDS: PANTOPRAZOLE DR 40 MG TABLET PO ×2 (10:05→21:09)
[2022-03-11] MEDS: PREGABALIN 75 MG CAPSULE 150 MG PO ×2 (10:05→21:09)
[2022-03-11] MEDS: buPROPion SR 150 MG TAB PO ×2 (10:14→21:09)
[2022-03-11 11:00] VITALS: BP 173/93; PULSE 68; RESP 18; TEMP 36.4; O2SAT 98
--- NOTE | 2022-03-11 12:12 | P.PN_ITS ---
Subjective Subjective Date Patient Seen: 03/11/22 Time Patient Seen: 12:13 Interval history: Patient is complaining of severe right hip and line pain. She notes she had an episode of sweating in the [place] and night. Temperature was 97.6? today. Her skin is somewhat less tender near the hematoma. She was evaluated by Dr. Hernandes myself today. Exam Vital Signs (past 8 hours): - 03/11/22 07:00 03/11/22 11:00 Temperature 96.4 F L 97.5 F L Pulse Rate 72 68 Respiratory Rate 18 18 Blood Pressure 152/88 H 173/93 H Pulse Oximetry 97 98 Oxygen Flow Rate 0 0 Oxygen Flow Rate 0 Narrative Exam Narrative: Pleasant 72-year-old female, resting comfortably in bed, acute distress with any right lower extremity leg movement, other than wiggling her toes. Right hip area the incision is healing, there is a spot of serous drainage on her bandage today from her aspiration yesterday. There is slight erythema, relatively unchanged from yesterday. She has moderate, fluid collection in the anterior aspect of her right leg which is soft and?compressible but tender to palpation. She is able to wiggle her toes. Calves are soft and nontender to palpation. Objective Labs Result Diagrams: 03/11/22 05:15 03/11/22 05:15 Labs: Laboratory Results - last 24 hr 03/10/22 03/11/22 03/11/22 19:15 05:15 05:15 WBC 4.2 L RBC 2.67 L Hgb 9.3 L Hct 27.9 L MCV 104.4 H MCH 34.7 H MCHC 33.3 RDW 18.5 H Plt Count 190 Neut % (Auto) 79.3 H Lymph % (Auto) 12.3 L [place] % (Auto) 3.8 Eos % (Auto) 4.0 Baso % (Auto) 0.6 Neut # (Auto) 3300 Lymph # (Auto) 500 L [place] # (Auto) 200 Eos # (Auto) 200 Baso # (Auto) 0 ESR Sodium 136 L Potassium 4.1 Chloride 109 H Carbon Dioxide 25 BUN 10 Creatinine 0.58 Estimated GFR > 60 BUN/Creatinine Ratio 17.2 Glucose 95 Calcium 8.2 L C-Reactive Protein Fluid Color Yellow Fluid Appearance Cloudy Fluid RBC 6855 Fld Tot Nucleated Cell 8051 Fluid Polynuclear WBCs 83 Fluid Mononuclear WBCs 17 Fluid Eosinophils 0 Fluid Other Cells 0 Body Fluid Clot No clots present 03/11/22 03/11/22 05:15 05:15 WBC RBC Hgb Hct MCV MCH MCHC RDW Plt Count Neut % (Auto) Lymph % (Auto) [place] % (Auto) Eos % (Auto) Baso % (Auto) Neut # (Auto) Lymph # (Auto) [place] # (Auto) Eos # (Auto) Baso # (Auto) ESR > 140 H Sodium Potassium Chloride Carbon Dioxide BUN Creatinine Estimated GFR BUN/Creatinine Ratio Glucose Calcium C-Reactive Protein 14.7 H Fluid Color Fluid Appearance Fluid RBC Fld Tot Nucleated Cell Fluid Polynuclear WBCs Fluid Mononuclear WBCs Fluid Eosinophils Fluid Other Cells Body Fluid Clot PFSH Medical History Actinic keratoses ADHD Arthritis B12 deficiency Back pain with history of spinal surgery BCC (basal cell carcinoma) Bleeding diathesis Cervical spondylosis Chronic pain DDD (degenerative disc disease) Depression Gastric ulcer (02/17/20) History of Mohs micrographic surgery for skin cancer HTN (hypertension) Hypersomnia Iron deficiency anemia Neurogenic claudication LEO (obstructive sleep apnea) Osteoarthritis Osteoporosis Psoriasis Psoriatic arthritis RBBB (right bundle branch block) RLS (restless legs syndrome) Rosacea SCC (squamous cell carcinoma) Scoliosis Sicca syndrome Spinal stenosis Spontaneous bruising Surgical History History of carpal tunnel surgery of left wrist History of carpal tunnel surgery of right wrist History of gastric bypass (~2004) History of hysterectomy (1995) History of reverse total replacement of right shoulder joint History of spinal fusion Hx of arthroscopy of left knee Hx of arthroscopy of right knee Hx of cholecystectomy Hx of toe surgery Social History household members: none Smoking Status: Never smoker alcohol intake: current substance use type: does not use Assessment & Plan Assessment & Plan narrative: 1. Postop hematoma versus possible abscess. -1st attempt to assess whether not she in fact has an infected periprosthetic joint.? If there is evidence of an infection she may be mass managed with removal of her components giving her at least short-term a functional girdle stone.? -cultures will dictate the next step in treatment. If there is any possibility she has an infection, we will likely proceed with removing all of the components and transitioning to transition a girdle stone on afternoon. -right hip superficial aspiration was performed 03/10/[address] Hernandes. Today, Gram stain demonstrates no organism seen, few white blood cells are present. Cultures and sensitivities are still pending. The samples also sent for testing at . -continue antibiotics for now. will continue to monitor WBC and Hg. She does not appear ill. -WBC this morning was 4.2, sed rate was greater than 140, CRP was 14.7. 2. -right hip acetabular fracture status post right total hip arthroplasty -She has clear evidence of a right acetabular fracture.? There is change in the position of her cup.? She has significant osteoporosis.? She has a very extensive spinal fusion and had severe AVN of her femoral head on the right. -If there is no evidence of infection we will further assess her component position and attempt to decide whether she is better managed with open reduction internal fixation of her acetabulum and revision of her cup or if there is any chance she can be managed with conservative treatment. -pending cultures. If negative for possible infection, will consider referral to outside surgeon at [facility] or for acetabular cage placement and definitive treatment. The cup does not appear to be in a functional position if we were to just let the acetabular fracture heal in place. ?- ddAVP is currently here at this hospital and available for use. This is to be given 30 minutes prior to procedure and 12 hours after. -rFVIIa (ILIR-7) to be given if significant bleeding. Pharmacy not have ILIR-7 b ut are working on making sure it is available if needed. Unclear as to the timing of when it will be available. This needs to be available prior to operative interventions 3. Chronic iron deficiency anemia ?- outpatient labs with Hg of 10.3 in 09/2021. It was 8.8 during her prior surgery for R JENNIE. It is 9.3 this AM. ?- continue to monitor. 4. Bleeding disorder: Please see above recommendations for potential surgery. 5. severe osteoporosis with bone failure of acetabulm s/p JENNIE 6. h/o extensive spine fusion and revision, with current broken joann. 7. We appreciate the hospitalist's recommendation for her medical management. ? She has an extremely complicated patient.? Concerns regarding infection, severe osteoporosis, severe stiffness of her spine with history of extensive hardware failure? and bone failure due to severe osteoporosis was discussed in detail with her and her son.? She also has a history of bleeding disorder and needs factor replacement at the time of surgical interventions.? Possible Surgical intervention would likely be afternoon. Need to make sure we have Ilir 7 available and DDAVP prior to surgery. Time Spent With Patient Critical Care time: I spent a total of [] minutes of critical care time on this patient's care today; this time is exclusive of procedural time. Quality VTE Deep Vein Thrombosis/Pulmonary Embolism Present on Admission: No
--- NOTE | 2022-03-11 14:11 | PM.PN.1 ---
Subjective Subjective Date Patient Seen: 03/11/22 Interval history: Continues to have severe R leg pain with movement. Pharmacy is working on obtaining LAURE-7 for possible surgery on per orthopedics. Dr. Hernandes aspirated her R hip, cultures currently without growth though she has been on antibiotics. Other than intermittent pain, she deneis shortness of breath, chest pain, nausea, vomiting. She feels like her Oxycodone could be increased. Exam Vital Signs (past 8 hours): - 03/11/22 07:00 03/11/22 11:00 Temperature 96.4 F L 97.5 F L Pulse Rate 72 68 Respiratory Rate 18 18 Blood Pressure 152/88 H 173/93 H Pulse Oximetry 97 98 Oxygen Flow Rate 0 0 Oxygen Flow Rate 0 Narrative Exam Narrative: Gen: pleasant female, no acute distress but is uncomfortable with minimal movement and grimaces CV: RRR no m/r/g Pulm: CTA b/l Ext: no edema Objective Labs Result Diagrams: 03/11/22 05:15 03/11/22 05:15 Labs: Laboratory Results - last 24 hr 03/10/22 03/11/22 03/11/22 19:15 05:15 05:15 WBC 4.2 L RBC 2.67 L Hgb 9.3 L Hct 27.9 L MCV 104.4 H MCH 34.7 H MCHC 33.3 RDW 18.5 H Plt Count 190 Neut % (Auto) 79.3 H Lymph % (Auto) 12.3 L [place] % (Auto) 3.8 Eos % (Auto) 4.0 Baso % (Auto) 0.6 Neut # (Auto) 3300 Lymph # (Auto) 500 L [place] # (Auto) 200 Eos # (Auto) 200 Baso # (Auto) 0 ESR Sodium 136 L Potassium 4.1 Chloride 109 H Carbon Dioxide 25 BUN 10 Creatinine 0.58 Estimated GFR > 60 BUN/Creatinine Ratio 17.2 Glucose 95 Calcium 8.2 L C-Reactive Protein Fluid Color Yellow Fluid Appearance Cloudy Fluid RBC 6855 Fld Tot Nucleated Cell 8051 Fluid Polynuclear WBCs 83 Fluid Mononuclear WBCs 17 Fluid Eosinophils 0 Fluid Other Cells 0 Body Fluid Clot No clots present 03/11/22 03/11/22 05:15 05:15 WBC RBC Hgb Hct MCV MCH MCHC RDW Plt Count Neut % (Auto) Lymph % (Auto) [place] % (Auto) Eos % (Auto) Baso % (Auto) Neut # (Auto) Lymph # (Auto) [place] # (Auto) Eos # (Auto) Baso # (Auto) ESR > 140 H Sodium Potassium Chloride Carbon Dioxide BUN Creatinine Estimated GFR BUN/Creatinine Ratio Glucose Calcium C-Reactive Protein 14.7 H Fluid Color Fluid Appearance Fluid RBC Fld Tot Nucleated Cell Fluid Polynuclear WBCs Fluid Mononuclear WBCs Fluid Eosinophils Fluid Other Cells Body Fluid Clot [facility] Medical History Actinic keratoses ADHD Arthritis B12 deficiency Back pain with history of spinal surgery BCC (basal cell carcinoma) Bleeding diathesis Cervical spondylosis Chronic pain DDD (degenerative disc disease) Depression Gastric ulcer (02/17/20) History of Mohs micrographic surgery for skin cancer HTN (hypertension) Hypersomnia Iron deficiency anemia Neurogenic claudication LEO (obstructive sleep apnea) Osteoarthritis Osteoporosis Psoriasis Psoriatic arthritis RBBB (right bundle branch block) RLS (restless legs syndrome) Rosacea SCC (squamous cell carcinoma) Scoliosis Sicca syndrome Spinal stenosis Spontaneous bruising Surgical History History of carpal tunnel surgery of left wrist History of carpal tunnel surgery of right wrist History of gastric bypass (~2004) History of hysterectomy (1995) History of reverse total replacement of right shoulder joint History of spinal fusion Hx of arthroscopy of left knee Hx of arthroscopy of right knee Hx of cholecystectomy Hx of toe surgery Social History household members: none Smoking Status: Never smoker alcohol intake: current substance use type: does not use Assessment & Plan Assessment & Plan narrative: This is a 71-year-old female with the past medical history chronic iron deficiency anemia, status post gastric bypass surgery, prior significant bleeding postoperatively who underwent right JENNIE for advanced hip osteoarthritis with Dr. Hernandes, presented to OSH ER with R hip pain found to have fracture and fluid collection. Transferred here for further management with Dr. Hernandes. Surgery planned now for . 1. -right hip acetabular fracture status post right total hip arthroplasty - management per orthopedic surgery - ddAVP is currently here at this hospital and available for use. This is to be given 30 minutes prior to procedure and 12 hours after. rFVIIa (LAURE-7) to be given if significant bleeding. Pharmacy does not have LAURE-7 but are working on making sure it is available if needed if surgery performed on . Unclear as to the timing of when it will be available. 2. Postop hematoma versus possible abscess. - continue antibiotics for now. will continue to monitor WBC and Hg. She does not appear ill. - s/p aspiration, ESR and CRP are markedly elevated. - aspiration is currently without growth. Also sent to for PCR testing per ortho. 3. Chronic iron deficiency anemia - outpatient labs with Hg of 10.3 in 09/2021. It was 8.8 during her prior surgery for R JENNIE. It has been stable around 9 while here. 4. ADHD - continue home adderall 5. Depression - continue home buproprion Code: Full, surrogate decision maker is her son Time Spent With Patient Critical Care time: I spent a total of [] minutes of critical care time on this patient's care today; this time is exclusive of procedural time. Quality VTE Deep Vein Thrombosis/Pulmonary Embolism Present on Admission: No
[2022-03-11 15:00] VITALS: BP 131/78; PULSE 96; RESP 18; TEMP 36.4; O2SAT 96
[2022-03-11] MEDS: TIZANIDINE 4 MG TABLET 2 MG PO (15:42)
--- NOTE | 2022-03-11 19:27 | PC.NURSE ---
patient noted to be scratching at incision. encouraged her to leave this alone, and covered w/ island dressing. pain controlled w/ IVP dilauded, Oxy 10mg and tizanidine. IVF per order, zosyn hanging now. patient is a/o, voices needs. 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 son over this evening to visit. remains supine for comfort, encouraged to change position frequently to prevent pressure on buttocks.
[2022-03-11 20:46] VITALS: BP 144/71; PULSE 72; RESP 18; TEMP 36.9; O2SAT 99
[2022-03-12] VITALS (9 sets, daily range): BP systolic 145–175; BP diastolic 74–85; PULSE 68–73; RESP 17–19; TEMP 36.1–36.8; O2SAT 95–99
[2022-03-12] MEDS: OXYCODONE IR 5 MG TABLET 10 MG PO (01:27)
[2022-03-12] MEDS: PIPERACILLIN/TAZO 3.375 GM in SODIUM CHLORIDE 0.9% 100 ML IV ×2 (01:27→09:03)
[2022-03-12] MEDS: HYDROMORPHONE 0.5 MG INJ 1 MG IV ×3 (02:42→20:03)
[2022-03-12] MEDS: TIZANIDINE 4 MG TABLET 2 MG PO ×2 (02:42→21:32)
[2022-03-12] MEDS: SODIUM CHLORIDE 0.9% 1,000 ML 100 ML IV (02:55)
[2022-03-12 05:40] LABS: Add Manual Diff / Slide Review NO; Basophils Absolute Auto 0 /uL (0-100); Basophils Percent Auto 0.5 % (0-2); Eosinophils Absolute Auto 200 /uL (0-450); Eosinophils Percent Auto 3.7 % (2-4); Hemoglobin 9.6 g/dL (12.0-16.0); Lymphocytes Absolute Auto 600 /uL (1100-4500); Lymphocytes Percent Auto 11.7 % (25-40); Mean Corpuscular HGB Conc 33.2 % (30-36); Mean Corpuscular Hemoglobin 34.5 PG (26-34); Mean Corpuscular Volume 103.9 fL (80-100); Monocytes Absolute Auto 300 /uL (0-900); Monocytes Percent Auto 6.9 % (3-14); Neutrophils Absolute Auto 3700 /uL (1500-7000); Neutrophils Percent Auto 77.2 % (50-75); Platelet Count 220 X10^3/uL (150-400); Red Cell Distribution Width 18.4 % (11.6-14.8); White Blood Cell Count 4.9 X10^3/uL (4.5-11.0)
--- NOTE | 2022-03-12 08:19 | P.PN_ITS ---
Subjective Subjective Date Patient Seen: 03/12/22 Time Patient Seen: 08:19 Interval history: Pain controlled with current meds. Denies fever or chills. Exam Vital Signs (past 8 hours): - 03/12/22 00:56 03/12/22 05:00 03/12/22 07:58 Temperature 97.5 F L 97.9 F 98.3 F Pulse Rate 72 73 69 Respiratory Rate 18 19 17 Blood Pressure 149/78 H 153/85 H 145/74 H Pulse Oximetry 95 96 97 Oxygen Flow Rate 0 0 0 Oxygen Delivery Method Room Air Oxygen Flow Rate 0 Const General: cooperative and comfortable Orientation: alert and oriented x3 Resp Effort & Inspection: normal respiratory effort and able to speak in complete sentences Neuro General: patient alert and patient oriented x3 Motor: other (motor function intact bilat. LE) Sensory Exam: lower extremity (intact sensation to light touch bilat. LE) Objective Labs Result Diagrams: 03/12/22 05:16 03/11/22 05:15 Labs: Laboratory Results - last 24 hr 03/11/22 03/11/22 03/12/22 05:15 05:15 05:16 WBC 4.9 RBC 2.80 L Hgb 9.6 L Hct 29.0 L MCV 103.9 H MCH 34.5 H MCHC 33.2 RDW 18.4 H Plt Count 220 Neut % (Auto) 77.2 H Lymph % (Auto) 11.7 L [place] % (Auto) 6.9 Eos % (Auto) 3.7 Baso % (Auto) 0.5 Neut # (Auto) 3700 Lymph # (Auto) 600 L [place] # (Auto) 300 Eos # (Auto) 200 Baso # (Auto) 0 ESR > 140 H C-Reactive Protein 14.7 H [facility] CLIA ID [id number] [address] [place] [address] RUN DATE: 03/12/22 Specimen Inquiry PAGE 1 RUN TIME: 820 Name: Rafita Merino Age/Sex: 72/F Attend Dr: Bryce Cabrera Unit#: [id number] : 1Location: AC 218-1 Re03/09/22 Disch: Status: ADM IN SPEC #: [id number] KAYLA: 03/10/22 STATUS: RES REQ #: [id number] SPDESC: RECD: 03/11/[address] [facility] [address]: Pat Hernandes MD SOURCE: Hip Rt ENTR: 03/10/[address] [facility] [address]: Juana Cabrera MD,Garima Mercedes MD FAX TO: ORDERED: WOUND Cx and GS Procedure Result Verified Site Gram Stain Final 03/11/22806 No Organism Seen No organisms seen White blood cells Occasional WBC seen Aerobic Culture for wounds Pending Anaerobic Culture Pending [facility] Medical History Actinic keratoses ADHD Arthritis B12 deficiency Back pain with history of spinal surgery BCC (basal cell carcinoma) Bleeding diathesis Cervical spondylosis Chronic pain DDD (degenerative disc disease) Depression Gastric ulcer (02/17/20) History of Mohs micrographic surgery for skin cancer HTN (hypertension) Hypersomnia Iron deficiency anemia Neurogenic claudication LEO (obstructive sleep apnea) Osteoarthritis Osteoporosis Psoriasis Psoriatic arthritis RBBB (right bundle branch block) RLS (restless legs syndrome) Rosacea SCC (squamous cell carcinoma) Scoliosis Sicca syndrome Spinal stenosis Spontaneous bruising Surgical History History of carpal tunnel surgery of left wrist History of carpal tunnel surgery of right wrist History of gastric bypass (~2004) History of hysterectomy (1995) History of reverse total replacement of right shoulder joint History of spinal fusion Hx of arthroscopy of left knee Hx of arthroscopy of right knee Hx of cholecystectomy Hx of toe surgery Social History household members: none Smoking Status: Never smoker alcohol intake: current substance use type: does not use Assessment & Plan Post-op Postoperative Postoperative status narrative: stable, right acetabular fracture Postoperative plan narrative: C&S results pending Continue abx for now If there is evidence of an infection she may be managed with removal of her components giving her at least short-term a functional girdle stone. If there is no evidence of infection we will further assess her component position and attempt to decide whether she is better managed with open reduction internal fixation of her acetabulum and revision of her cup or if there is any chance she can be managed with conservative treatment. Hospitalist managing Chronic iron deficiency anemia, ADHD, Depression Quality VTE Deep Vein Thrombosis/Pulmonary Embolism Present on Admission: No
[2022-03-12] MEDS: PREGABALIN 75 MG CAPSULE 150 MG PO ×2 (09:05→21:32)
[2022-03-12] MEDS: PANTOPRAZOLE DR 40 MG TABLET PO ×2 (09:06→21:32)
[2022-03-12] MEDS: METOPROLOL ER 50 MG TABLET 100 MG PO (09:06)
[2022-03-12] MEDS: OXYCODONE IR 5 MG TABLET 15 MG PO ×2 (09:06→22:39)
[2022-03-12] MEDS: ASPIRIN EC 81 MG TABLET PO (09:06)
[2022-03-12] MEDS: DULOXETINE 30 MG CAPSULE 60 MG PO (09:06)
[2022-03-12] MEDS: buPROPion SR 150 MG TAB PO ×2 (09:07→21:32)
--- NOTE | 2022-03-12 13:57 | P.PN_ITS ---
Subjective Subjective Date Patient Seen: 03/12/22 Interval history: Continues to have severe R leg pain with movement, but otherwise controlled with increased oxycodone today. Pharmacy is working on obtaining LAURE-7 for possible surgery on per orthopedics. Dr. Hernandes aspirated her R hip, cultures now with a staph aureus. Other than intermittent pain, she deneis shortness of bakari th, chest pain, nausea, vomiting. Exam Vital Signs (past 8 hours): - 03/12/22 07:58 03/12/22 09:06 03/12/22 07:00 Temperature 98.3 F Pulse Rate 69 69 Respiratory Rate 17 Blood Pressure 145/74 H 145/74 H Pulse Oximetry 97 Oxygen Delivery Method Room Air Oxygen Flow Rate 0 03/12/22 10:46 03/12/22 10:05 Temperature 97.8 F Pulse Rate 71 71 Respiratory Rate 17 Blood Pressure 149/77 H 149/77 H Pulse Oximetry 98 Oxygen Delivery Method Oxygen Flow Rate 0 Oxygen Delivery Method Room Air Oxygen Flow Rate 0 Narrative Exam Narrative: Gen: pleasant female, no acute distress but is uncomfortable with minimal movement and grimaces CV: RRR no m/r/g Pulm: CTA b/l Ext: no edema Objective Labs Result Diagrams: 03/12/22 05:16 03/11/22 05:15 Labs: Laboratory Results - last 24 hr 03/12/22 05:16 WBC 4.9 RBC 2.80 L Hgb 9.6 L Hct 29.0 L MCV 103.9 H MCH 34.5 H MCHC 33.2 RDW 18.4 H Plt Count 220 Neut % (Auto) 77.2 H Lymph % (Auto) 11.7 L [place] % (Auto) 6.9 Eos % (Auto) 3.7 Baso % (Auto) 0.5 Neut # (Auto) 3700 Lymph # (Auto) 600 L [place] # (Auto) 300 Eos # (Auto) 200 Baso # (Auto) 0 PFSH Medical History Actinic keratoses ADHD Arthritis B12 deficiency Back pain with history of spinal surgery BCC (basal cell carcinoma) Bleeding diathesis Cervical spondylosis Chronic pain DDD (degenerative disc disease) Depression Gastric ulcer (02/17/20) History of Mohs micrographic surgery for skin cancer HTN (hypertension) Hypersomnia Iron deficiency anemia Neurogenic claudication LEO (obstructive sleep apnea) Osteoarthritis Osteoporosis Psoriasis Psoriatic arthritis RBBB (right bundle branch block) RLS (restless legs syndrome) Rosacea SCC (squamous cell carcinoma) Scoliosis Sicca syndrome Spinal stenosis Spontaneous bruising Surgical History History of carpal tunnel surgery of left wrist History of carpal tunnel surgery of right wrist History of gastric bypass (~2004) History of hysterectomy (1995) History of reverse total replacement of right shoulder joint History of spinal fusion Hx of arthroscopy of left knee Hx of arthroscopy of right knee Hx of cholecystectomy Hx of toe surgery Social History household members: none Smoking Status: Never smoker alcohol intake: current substance use type: does not use Assessment & Plan Assessment & Plan narrative: This is a 71-year-old female with the past medical history chronic iron deficiency anemia, status post gastric bypass surgery, prior significant bleeding postoperatively who underwent right JENNEI for advanced hip osteoarthritis with Dr. Hernandes, presented to OSH ER with R hip pain found to have fracture and fluid collection. Transferred here for further management with Dr. Hernandes. Surgery planned now for . 1. -right hip acetabular fracture status post right total hip arthroplasty - management per orthopedic surgery - ddAVP is currently here at this hospital and available for use. This is to be given 30 minutes prior to procedure and 12 hours after. rFVIIa (LAURE-7) to be given if significant bleeding. Pharmacy does not have LAURE-7 but are working on making sure it is available if needed if surgery performed on . Should arrive today or tomorrow AM. 2. Postoperative abscess - continue antibiotics for now. will continue to monitor WBC and Hg. She does not appear ill. - s/p aspiration, ESR and CRP are markedly elevated. - aspiration has staph aureus. Will add vancomycin and narrow to cefazolin. D/c vanco if not MRSA. - plan per orthopedics for removal of possibly infected hardware. 3. Chronic iron deficiency anemia - outpatient labs with Hg of 10.3 in 09/2021. It was 8.8 during her prior surgery for R JENNIE. It has been stable around 9 while here. 4. ADHD - continue home adderall 5. Depression - continue home buproprion Code: Full, surrogate decision maker is her son Time Spent With Patient Critical Care time: I spent a total of [] minutes of critical care time on this patient's care today; this time is exclusive of procedural time. Quality VTE Deep Vein Thrombosis/Pulmonary Embolism Present on Admission: No
[2022-03-12] MEDS: CEFAZOLIN 2 GM/20 ML SYRINGE IV ×2 (14:55→21:32)
[2022-03-12] MEDS: VANCOMYCIN PER PHARMACY 1 REQUEST MISC (15:32)
[2022-03-12] MEDS: VANCOMYCIN 1,250 MG/250 ML PIGGYBACK 250 MG IV (15:32)
--- NOTE | 2022-03-12 18:28 | PC.NURSE ---
Pt is AxOx4, bedrest due to pain on R hip and pelvic area. VSS, pt c/o pain and recieved PRN PO Oxy and IV Dilaudid 1mg. Last pain med given around 1500 with good effect. Pt is on purewick due to pain on R hip, and it has adequate urine output. Pt is eating well. Last BM 03/12 ( loose BM x2). No other changes. Continue monitor.
[2022-03-13] VITALS (20 sets, daily range): BP systolic 88–174; BP diastolic 53–84; PULSE 61–76; RESP 11–21; TEMP 35.1–37.2; O2SAT 92–99; BMI 32.3
--- NOTE | 2022-03-13 | DI.RAD.S_ITS ---
PROCEDURE: XR HIP W PEL IF DONE RT 2V INDICATIONS: post op right hip TECHNIQUE: AP pelvis and lateral view of the right hip acquired. COMPARISON: [facility] Outside Film, CT, CT PELVIS WITH CONTRAST, 03/09/2022, 16:10. [facility], CR, XR HIP W PEL IF DONE RT 2V, 03/10/2022, 13:21. [facility], CR, XR HIP W PEL IF DONE RT 2V, 03/13/2022, 17:39. FINDINGS: Bones: Patient is status post right hip arthroplasty removal and placement of a spacer device. There is mild proximal migration of the proximal humerus that is stable when compared to the preoperative exam. Stable linear lucency is seen within the right inferior pubic ramus. Right iliac fracture is noted with overlapping osseous structures, not well visualized on standard views. Postsurgical changes are seen in the included lumbosacral spine. Soft tissues: Overlying postoperative changes are noted. No suspicious soft tissue densities. IMPRESSION: Postsurgical changes in the right hip from arthroplasty removal. Right proximal femoral alignment is unchanged. Right innominate bone fractures do not appear significantly changed. Dictated by: Sander Lazar M.D. on 03/13/2022 at 19:36 Approved by: Sander Lazar M.D. on 03/13/2022 at 19:39
[2022-03-13] MEDS: VANCOMYCIN 1,250 MG/250 ML PIGGYBACK 250 MG IV ×2 (04:46→22:27)
[2022-03-13] MEDS: HYDROMORPHONE 0.5 MG INJ 1 MG IV ×2 (05:22→11:22)
[2022-03-13 05:56] LABS: Add Manual Diff / Slide Review NO; Basophils Absolute Auto 0 /uL (0-100); Basophils Percent Auto 0.4 % (0-2); Eosinophils Absolute Auto 200 /uL (0-450); Eosinophils Percent Auto 5.7 % (2-4); Hematocrit 27.8 % (36-46); Hemoglobin 9.5 g/dL (12.0-16.0); Lymphocytes Absolute Auto 500 /uL (1100-4500); Mean Corpuscular HGB Conc 34.2 % (30-36); Mean Corpuscular Hemoglobin 35.1 PG (26-34); Mean Corpuscular Volume 102.6 fL (80-100); Monocytes Absolute Auto 300 /uL (0-900); Monocytes Percent Auto 7.2 % (3-14); Neutrophils Absolute Auto 3300 /uL (1500-7000); Neutrophils Percent Auto 75.7 % (50-75); Platelet Count 250 X10^3/uL (150-400); Red Blood Cell Count 2.71 X10^6/uL (4.0-5.2); Red Cell Distribution Width 17.9 % (11.6-14.8); White Blood Cell Count 4.4 X10^3/uL (4.5-11.0)
[2022-03-13] MEDS: CEFAZOLIN 2 GM/20 ML SYRINGE IV ×2 (06:43→15:55)
--- NOTE | 2022-03-13 07:25 | DI.RAD.S_ITS ---
PROCEDURE: XR HIP W PEL IF DONE RT 2V INDICATIONS: prosthesis placement TECHNIQUE: 2 view(s) of the hip acquired. COMPARISON: [facility] Outside Film, CT, CT PELVIS WITH CONTRAST, 03/09/2022, 16:10. [facility], CR, XR HIP W PEL IF DONE RT 2V, 03/10/2022, 13:21. FINDINGS: Bones: Multiple intraoperative fluoroscopic views demonstrate placement of a right proximal femoral prosthesis. IMPRESSION: Intraoperative views of right femoral prosthesis placement. Dictated by: Christina Wiley M.D. on 03/14/2022 at 10:39 Approved by: Christina Wiley M.D. on 03/14/2022 at 10:40
--- NOTE | 2022-03-13 07:46 | PC.NURSE ---
Addendum entered by Raissa Feng R.N. 03/13/22 11:56: [address] Wilder in person and notified that pt right hip would culture positive for MRSA. Original Note: Spoke to Dr. Henrandes and Dr. Holliday in person and notified pt right hip wound culture came back positive for MRSA. Contact precautions placed.
--- NOTE | 2022-03-13 07:57 | PC.NURSE ---
Per Dr. Hernandes water and apple juice ok and ok to give pt morning medications.
[2022-03-13] MEDS: DULOXETINE 30 MG CAPSULE 60 MG PO (09:57)
[2022-03-13] MEDS: METOPROLOL ER 50 MG TABLET 100 MG PO (09:58)
[2022-03-13] MEDS: buPROPion SR 150 MG TAB PO (09:58)
[2022-03-13] MEDS: PANTOPRAZOLE DR 40 MG TABLET PO (09:58)
[2022-03-13] MEDS: PREGABALIN 75 MG CAPSULE 150 MG PO (09:59)
--- NOTE | 2022-03-13 10:30 | CM.DPC ---
Addendum entered by Luz Maria Francois R.N. 03/13/22 14:30: Lidia from [facility] called. Stated that patient's son had contacted her for information about facility. Lidia is familiar with patient, she was an [employer] from [employer]. Stated, son is just inquiring, do not need to currently send information. Will go ahead and complete PASSR. Original Note: DCP Cont: Met with patient and son, eJb, who resides in [place]. Had been briefed by Dr. Hernandes regarding surgery today, and plan for 6 weeks of IV ABO. 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 Stated,patient most likely will need alf. She had also mentioned son thinking about possibility of taking her to a facility in the [facility]. Met briefly with son, Jeb, and patient. Surgery is scheduled for today. Discussed discharge planning. Gave son the Medicare Choice List. He is aware that she will need alf, home is not an option. He is also aware that the trip to [place] would be challenging, and will research some of the facilities provided on the Medicare Choice List. He may also look into the [facility] area. Patient stated, I don't want to go to [place] or [place], as a provider, I had patient there and did not like the facilities. She is hoping that she can get into a rehab that can meet her needs. Let her know that there are both [facility] and [facility] in the [facility] area. P: DCP will follow up with son on facility plan. According to orthopedist, patient could be here for a couple of days. Patient does have [facility], so auth will need to be obtained. Gave son this DC [employer]yl[employer] Operator's phone number as well. Luz Maria Francois RN/[employer]
--- NOTE | 2022-03-13 10:32 | PC.NURSE ---
Spoke to Dr. Wilder in person and notified that aspirin 81 mg was held due to allergy.
--- NOTE | 2022-03-13 10:56 | PC.NURSE ---
[address] Gómez the order for 2 Units PRBC she placed is not to be infused yet. She wants it to be at the ready, in case the surgical team needs it during the case, later today.
[2022-03-13] MEDS: SODIUM CHLORIDE 0.9% 1,000 ML 75 ML IV (11:45)
--- NOTE | 2022-03-13 13:41 | PM.PN.1 ---
Subjective Subjective Interval history: pt c/o mild pain in hip area, she denies chest pain, shortness of breath Exam Vital Signs (past 8 hours): - 03/13/22 09:00 03/13/22 09:58 03/13/22 13:00 Temperature 99.0 F 98.1 F Pulse Rate 73 73 69 Respiratory Rate 18 20 Blood Pressure 174/83 H 174/83 H 169/78 H Pulse Oximetry 97 99 Oxygen Flow Rate 0 0 Oxygen Delivery Method Room Air Oxygen Flow Rate 0 Const General: cooperative and well developed Orientation: alert, awake and oriented x3 HENMT Head: normal to inspection Ears: external ears normal Mouth: oral mucosae normal Eyes Pupils: PERRL EOM: EOM intact bilaterally Neck Neck: normal visual inspection and full ROM Resp Effort & Inspection: normal respiratory effort Auscultation: clear to auscultation bilaterally Cardio Rate: regular rate Rhythm: regular rhythm GI Palpation: soft and no hepatosplenomegaly Auscultation: normal bowel sounds Skin General: no rashes or lesions noted Neuro General: patient alert, patient awake, patient oriented x3, moves all extremities and no focal motor deficits Speech: speech normal Extrem General: normal to inspection, full ROM and no pedal edema Psych Appearance: grossly normal Objective Labs Result Diagrams: 03/13/22 05:32 03/11/22 05:15 Labs: Laboratory Results - last 24 hr 03/13/22 03/13/22 05:32 11:40 WBC 4.4 L RBC 2.71 L Hgb 9.5 L Hct 27.8 L MCV 102.6 H MCH 35.1 H MCHC 34.2 RDW 17.9 H Plt Count 250 Neut % (Auto) 75.7 H Lymph % (Auto) 11.0 L [place] % (Auto) 7.2 Eos % (Auto) 5.7 H Baso % (Auto) 0.4 Neut # (Auto) 3300 Lymph # (Auto) 500 L [place] # (Auto) 300 Eos # (Auto) 200 Baso # (Auto) 0 Blood Type O Negative Antibody Screen Negative Crossmatch See Detail [facility] Medical History Actinic keratoses ADHD Arthritis B12 deficiency Back pain with history of spinal surgery BCC (basal cell carcinoma) Bleeding diathesis Cervical spondylosis Chronic pain DDD (degenerative disc disease) Depression Gastric ulcer (02/17/20) History of Mohs micrographic surgery for skin cancer HTN (hypertension) Hypersomnia Iron deficiency anemia Neurogenic claudication LEO (obstructive sleep apnea) Osteoarthritis Osteoporosis Psoriasis Psoriatic arthritis RBBB (right bundle branch block) RLS (restless legs syndrome) Rosacea SCC (squamous cell carcinoma) Scoliosis Sicca syndrome Spinal stenosis Spontaneous bruising Surgical History History of carpal tunnel surgery of left wrist History of carpal tunnel surgery of right wrist History of gastric bypass (~2004) History of hysterectomy (1995) History of reverse total replacement of right shoulder joint History of spinal fusion Hx of arthroscopy of left knee Hx of arthroscopy of right knee Hx of cholecystectomy Hx of toe surgery Social History household members: none Smoking Status: Never smoker alcohol intake: current substance use type: does not use Assessment & Plan Assessment & Plan narrative: Hip fracture , s/p R total hip arthroplasty ?- continue pain management - continue close monitoring -continue management per ortho team Postoperative abscess ? - cx with MRSA - continue IV vanco - PICC line needed - needs 6 weeks of abx - tomorrow - removal possibly infected hardware Anemia of chronic disease ?- CBC daily ADHD ?- continue adderall Depression ?- continue buproprion DVT prophylaxis: SCD Code status: Full POA - son Time Spent With Patient Critical Care time: I spent a total of [] minutes of critical care time on this patient's care today; this time is exclusive of procedural time. Quality VTE Deep Vein Thrombosis/Pulmonary Embolism Present on Admission: No
--- NOTE | 2022-03-13 13:53 | PC.NURSE ---
Pt taken off unit for ortho surgery.
--- NOTE | 2022-03-13 14:44 | PM.PREOP ---
Pre-operative Note COVID-19 COVID-19 status: Negative Interval Note History & Physical reviewed/Exam performed by Physician: Yes Changes to H&P: No H&P completed within 30 days and has changed as indicated here:: She continues to note incapacitating right hip pain. Her right hip was aspirated 2 days ago. It is growing Staph aureus. She has been afebrile since she has been here. She has an elevated sedimentation rate and C reactive protein. Her CT scan is reviewed in detail it shows evidence of an acetabular fracture with some loosening of the cup without shift in the position of the cup. I reviewed in detail with her and who previously discussed with her son that she does require revision surgery. I have recommended removal of her components with irrigation and debridement. We will send deep cultures and deep PCR. I anticipate she will require 6 weeks of IV antibiotics. I told her that we will make a tentative plan to place an antibiotic spacer after removal of her prosthesis. The serious nature of the problem options risks benefits and complications were discussed in great detail. Anticipate she will need 6 weeks of IV antibiotics and will be essentially nonweightbearing on the right lower extremity. Ultimately she potentially is a candidate for reconstruction with a right total hip arthroplasty. She continues to have a severe problem with marked osteoporosis, as very stiff spine due to a fusion from her upper thoracic spine across her SI joint and known osteoporosis. 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 It had progressed to the extent that she had very limited weight-bearing on the right lower extremity. His for her ultimate reconstruction she may require a cage or augments for a very complicated reconstruction. At this point were going to remove her hardware and treat her for acute infection. She also has a known bleeding disorder and her any of her DDAVP preoperatively fully as per the recommendations of the manager technical support.
[2022-03-13] MEDS: LACTATED RINGERS 1,000 ML 42 ML IV ×2 (14:45→18:00)
[2022-03-13 14:55] LABS: COVID19 -Nasal RAPID Negative (Negative)
[2022-03-13] MEDS: SODIUM CHLORIDE 0.9% IV (14:58)
[2022-03-13] MEDS: DESMOPRESSIN IV (14:58)
--- NOTE | 2022-03-13 15:12 | PM.OP.1 ---
Operative Date/Time/Diagnoses Date of procedure: 03/13/22 Time of procedure: 15:12 Pre-op diagnosis: right acetabular fracture, h/o right total hip, infected hematoma Post-op diagnosis: same Procedure & Clinicians Procedure: right total hip irrigation and debridement and removal of total hip and placement of an antibiotic spacer femoral replacement Same procedure as scheduled: Yes Indications: This is a lady use 1 month status post a right total hip arthroplasty. She developed a postoperative hematoma. She does have a history of a bleeding disorder but was given appropriate DDAVP at the time of her surgery. She then went on to have continued pain and swelling. She did not have significant fevers or chills the CT scan showed evidence of a right acetabular fracture with malalignment of the cup. Her hip was aspirated and is growing is scant Staph aureus. She is brought to the operating room for irrigation and debridement with the plan for probable removal of her total hip arthroplasty and placement of an antibiotic spacer. Surgeon: Pat Hernandes Shirt Turner: Mariana Mendez Anesthesia Type: General Operative Notes Findings: gross pus deep tracking into the total hip, loose acetabulum, acetabular fracture with mild displacement Closure Type: primary Specimen(s): other (multiple cultures and PCR) Prosthetic devices, grafts, tissues, transplants, or devices: remedy spectrum 46mm femoral head, small femoral remedy spectrum antibiotic spacer femoral component, vancomycin cement and powder Applied: catheter and drain(s) Estimated Blood Loss (mL): 250 Blood products transfused: none Procedure in detail: The patient was brought to the operating room. Patient was carefully positioned in the supine position. Time-out was performed and antibiotics were given. Anesthesia was induced. She was positioned in the on the table in order to allow hyperextension of the hip. The right lower extremity was prepped and draped in a standard sterile fashion. An anterior right hip incision was made 1 fingerbreadth lateral to the anterior superior iliac spine and extended distally towards the greater trochanter. Dissection was carried out through skin and subcutaneous tissues. The previous skin incision was removed. There was significant deep fluid including some gross pus. The infection tracked down to the femoral prosthesis. An insurance administrative assistant was used intraoperatively for appropriate positioning of the patient and was essential for adequately protecting the femur and elevating the femur and appropriately retracting soft tissues to allow exposure and safe explantation of the components as well as implantation of the antibiotic spacer. The hip was carefully dislocated after mobilizing the capsule. There was gross pus was carefully irrigated and debrided and I sent intraoperative cultures of the infection as well as deep cultures from around the femoral prosthesis and from the acetabulum. The head head was removed from the femoral stem. The cup was noted to be grossly loose and had subluxed out of the acetabulum. The metallic liner was loosen from the cup. The cup was then removed as well as the 2 screws. The femur was then gently elevated IA, whom use the Honda table to extend the hip 80 ducted and externally rotated. An extraction device was placed on the femoral component and the femoral component was removed without bone loss. Deep cultures were taken. At that point the canal was meticulously irrigated with normal saline and scrubbed with a scrub brush. Any grossly Laura infected tissue was carefully removed and I used a Azar to freshen tissue. I was he will assist and gentle with the acetabulum did irrigate the acetabulum did remove some biofilm and sent cultures from the acetabulum. There was some comminution of the acetabulum with fracture noted deep in the acetabulum with a separate fragment along the posterior wall. Anteriorly there was also some comminution. There did not appear to be any devitalized or disconnected bone. The acetabulum was meticulously irrigated with normal saline. I used multiple Liters of dilute irrigation with a pulse lavage. At that point the patient was re-prepped and draped all equipment gowns gloves and a separate back table was set up. Attention was then directed to the femur. The femur was gently hyperextended in order to allow adequate visualization of the proximal femur with elevation of the femur. Patient was placed in a hyperextended slightly adducted position with maximum external rotation. An antibiotic spacer trial was placed with remedy Spectrum size small antibiotic spacer was placed in the canal. Specifically with vancomycin in the antibiotic spacer. The stem was placed down and could be placed without broaching or additional bone loss. It did try to sit in a position of slightly excessive anteversion. Was able to adequately stabilize it and put it in acceptable alignment. I did a trial reduction initially with a 40 head and subsequently with the 48 mm head. It was felt that a 54 head option was too large for her anatomy. Trial reduction was performed and I took intraoperative x-rays to confirm that there was adequate alignment and offset and leg length. X-rays showed acceptable alignment and offset. Trial component was removed the wound was we meticulously irrigated with normal saline. Final component was opened and the junction was bonded using palmar. Head neck taper was further reinforced with antral which also placed most proximal stem in order to provide additional rotational and axial. Repeat trial reduction and x-ray showed acceptable overall position, length, and no evidence of the femoral fracture. Wound was meticulously irrigated with normal saline. Additional Exparel and Marcaine were injected. The capsule was closed with interrupted monofilament absorbable sutures. Additional vancomycin powder was placed in the wound. A superficial and a deep Drain was placed. Any tensor fascia erika muscle that appeared to be contused or injured which was a minimal amount was carefully resected. Capsule around the tensor was injected with Exparel and Marcaine. The skin was closed with monofilament absorbable for the subcutaneous tissue and skin. We also used skin grayson. The wound was dressed sterilely with a alice. Brief Betadine soak was also used and was meticulously irrigated with normal saline. Patient was transferred to recovery room in satisfactory condition. Complications: none Post-operative Condition: stable Disposition: Acute Care Plan for aftercare: Nonweightbearing on the right lower extremity. Okay to transfer out of bed. IV antibiotics for 6 weeks. Leave drain in for 48 hours.
[2022-03-13] MEDS: TRANEXAMIC ACID 1,000 MG VIAL 1000 MG INJ ×2 (15:58→18:15)
--- NOTE | 2022-03-13 16:30 | SUR.OPER ---
Patient supine on padded [place] table, one arm on padded arm board at <90, other arm padded and secured with tape across patient's chest, both legs secured in padded traction boots and positioned per surgeon, padded post at patient's groin, pressure points checked and padded. Positioning directed and approved by surgeon
[2022-03-13] MEDS: VANCOMYCIN 1,000 MG VIAL 2000 MG TOP (17:00)
[2022-03-13] MEDS: VANCOMYCIN 1,000 MG VIAL 1000 MG TOP (17:30)
[2022-03-13] MEDS: BUPIVACAINE 0.25% (PF) 60 ML, EPINEPHrine 0.3 MG INJ (18:35)
[2022-03-13] MEDS: BUPIVACAINE LIPOSOME 266 MG/20 ML VIAL INJ (18:36)
[2022-03-13] MEDS: ONDANSETRON 4 MG/2 ML INJ IV (19:38)
[2022-03-13] MEDS: HYDROMORPHONE 0.5 MG INJ IV (19:40)
--- NOTE | 2022-03-13 19:46 | SUR.PHASEI ---
Patient noted to be incontinent of stool while xray being performed; cleaned patient up and fresh pads placed underneath; xray completed. Patient in pain with any movement of right hip. Ice pack to site; alice drain and hemovac drain remain intact.
[2022-03-13] MEDS: OXYCODONE IR 10 MG TABLET 15 MG PO (22:27)
[2022-03-13] MEDS: LACTATED RINGERS 1,000 ML 125 ML IV (22:28)
[2022-03-14] MEDS: IBUPROFEN 400 MG TABLET PO ×4 (00:15→19:39)
[2022-03-14] MEDS: ACETAMINOPHEN 325 MG TABLET 650 MG PO ×4 (00:15→19:40)
[2022-03-14 01:17] LABS: Clostridium Difficile Tox PCR Negative for C. diff (Negative)
[2022-03-14] MEDS: DESMOPRESSIN IV (03:41)
[2022-03-14] MEDS: SODIUM CHLORIDE 0.9% IV (03:41)
[2022-03-14 04:54] VITALS: BP 130/61; PULSE 59; RESP 16; TEMP 35.7; O2SAT 97
[2022-03-14] MEDS: LACTATED RINGERS 1,000 ML 125 ML IV (07:54)
--- NOTE | 2022-03-14 08:03 | CM.DPC ---
DCP Cont: Called patient's son, Trevin, to inquire upon facilities. He mentioned that he did tour [facility], and [facility] had no openings. [facility] going [facility]. He inquired upon any facilities in the [place] area, and let him know that this DC program planner is not familiar with some of them, but may be a [facility] facility that he can inquire upon. At this time, will send clinicals to [facility]. Lidia at [facility] had met with son yesterday. P: DCP to continue to follow. Patient will need skilled rehab. Will send clinicals to Lidia today, and will follow up with son later today to discuss choice of facility, for patient may be ready to discharge tomorrow if stable. Luz Maria Francois RN/[employer] Former Supervisor
--- NOTE | 2022-03-14 09:18 | PC.NURSE ---
Addendum entered by Raissa Feng R.N. 03/14/22 09:24: Spoke to Juan on the phone about the vanco trough and he states he does not have an order. Spoke to Castro on the phone from pharmacy and he states he is putting in a stat order for the vanco trough. Original Note: Spoke to Juan from lab on the phone about vanco trough to be drawn this AM, scheduled at 0830.
[2022-03-14] MEDS: DOXYCYCLINE HYCLATE 100 MG TABLET PO (09:50)
[2022-03-14] MEDS: MELOXICAM 7.5 MG TABLET 15 MG PO (09:50)
--- NOTE | 2022-03-14 10:07 | PT.IIE ---
Current Diagnoses Hemorrhagic condition, unspecified (03/09/22) Obstructive sleep apnea (adult) (pediatric) (03/09/22) Other acute postprocedural pain (03/09/22) Essential (primary) hypertension (03/09/22) Unspecified osteoarthritis, unspecified site (03/09/22) Pain in unspecified hip (03/09/22) Dorsalgia, unspecified (03/09/22) Spontaneous ecchymoses (03/09/22) Unspecified fracture of right acetabulum, initial encounter for closed fracture (03/09/22) Contusion of right hip, initial encounter (03/09/22) Presence of right artificial hip joint (03/09/22) Other specified postprocedural states (03/09/22) Surgery Performed Operation Date: 03/13/22 14:15 Actual Procedures p Right hip irrigation and debridement, removal of JENNIE, placement of spacer(Right) - Pat Hernandes MD Surgical History (Last Reviewed 03/11/22 @ 12:18 by Mariana Mendez PA-C) History of carpal tunnel surgery of left wrist History of carpal tunnel surgery of right wrist History of gastric bypass (~2004) History of hysterectomy (1995) History of reverse total replacement of right shoulder joint History of spinal fusion Hx of arthroscopy of left knee Hx of arthroscopy of right knee Hx of cholecystectomy Hx of toe surgery Medical History (Last Reviewed 03/11/22 @ 12:18 by Mariana Mendez PA-C) Actinic keratoses ADHD Arthritis B12 deficiency Back pain with history of spinal surgery BCC (basal cell carcinoma) Bleeding diathesis Cervical spondylosis Chronic pain DDD (degenerative disc disease) Depression Gastric ulcer (02/17/20) History of Mohs micrographic surgery for skin cancer HTN (hypertension) Hypersomnia Iron deficiency anemia Neurogenic claudication LEO (obstructive sleep apnea) Osteoarthritis Osteoporosis Psoriasis Psoriatic arthritis RBBB (right bundle branch block) RLS (restless legs syndrome) Rosacea SCC (squamous cell carcinoma) Scoliosis Sicca syndrome Spinal stenosis Spontaneous bruising Physical Therapy Inpatient Evaluation/Re-Eval M1 PT/OT-IP Prior Functional Status Start: 03/14/22 12:24 Freq: NEEDED Status: Active Protocol: Document 03/14/22 10:07 AB (Rec: 03/14/22 12:53 AB [id number]) Medical Review Prior Functional Status Medical History Reviewed Yes Communication able to make needs known Mobility and Gait pt with h/o R JENNIE anterior approach last 02/04/22. pt stated that upon d/c after R JENNIE, she was able to ambulate using SPC and be independent. Social History Household Members none Living Arrangements House Number of Floors (Floors) Two Floors Number of Stairs To Enter/Railing? 2 steps without rails to enter with R grab bar by side of door frame 7 steps +landing+7 steps L rail to bedroom level Home Environment Standard Height Toilet,Walk in Shower,Built-In Shower Seat Home Equipment Front Wheel Walker,Four Wheel Walker,Quad Cane,Straight Cane ,Raised Toilet Seat Without Armrests,Hand Held Shower,Grab Bars In Shower M2 PT-IP Current Condition Start: 03/14/22 12:24 Freq: NEEDED Status: Active Protocol: Document 03/14/22 10:07 AB (Rec: 03/14/22 12:53 AB [id number]) Physical Therapy Current Condition Current Condition Evaluation Date 03/14/22 Treatment Diagnosis R acetabular fx; R hip hematoma s/p I&D & spacer placement; diff in walking Onset Date 03/09/22 M3 PT-IP Subjective Start: 03/14/22 12:24 Freq: NEEDED Status: Active Protocol: Document 03/14/22 10:07 AB (Rec: 03/14/22 12:53 AB [id number]) Subjective Physical Therapy Visit Type Type Initial Evaluation Visit Start Time 10:07 Visit Stop Time 11:22 Total Visit Minutes 75 Number of LITHOGRAPHIC PHOTOGRAPHER APPRENTICE Visits 0 Physical Therapy Visit Comments Patient Comments stated that the nurse told her that she cannot get up. informed pt that the doctor order PT and also informed regarding order for NWB on RLE and ambulate at tolerated. Pt requested to see the orders and wants to make sure that it was Dr. Hernandes that ordered PT. Printed orders to show pt and then pt agreed. Therapy Pain Assessment Pain When Pain Assessed At Rest Pain Present Pain Present Pain Reported Location Right Hip Intensity 9 Scale Used Numeric (0 - 10) M4 PT-IP Mobility and Gait Start: 03/14/22 12:24 Freq: NEEDED Status: Active Protocol: Document 03/14/22 10:07 AB (Rec: 03/14/22 12:53 AB [id number]) PT-Bed Mobility Assessment Rolling Type of Rolling Log Rolling Level of Assist Maximal Assistance,1 Person Assistance Supine to Sit Supine to Sit Maximum Assistance,1 Person Assistance,2 Person Assistance ,Bedrails Scooting Scooting to Edge of Bed Maximum Assistance PT-Transfer Assessment Comments Mobility Comments pt directs her own care and is very particular on how to be moved. pt needs to be cleaned up and NAC in room with PT to assist pt. pt instructed to roll to the L. Pt unable to fully roll to the side but told PT and NAC not to assist her. informed pt that we need to move her hips slightly up for her to be able to roll better but pt started to scream at PT that we cannot roll and that we can clean her up on the position that she is on because if other people was able to do it then the NAC and PT can also do it. completed cleaning and managing brief with pt but with great difficulty. pt completed sit to supine max Ax 2 and max cues and pt adjusted bed to assist her and wants limited assistance and movement from PT or NAC but still pt requires max A x 2 with 3 attempts and increase rest breaks in between. max A x 2 for scooting to EOB. educated on NWB on RLE and pt understood. attempted sit to stand x 3 max A x 2 but pt unable to complete. pt stated that she does not want to use a polo lift and to put in PT 's note to inform the SNF the she is going to d/c to that she is refusing a polo lift. informed pt regarding slide board transfer and pt agreed. completed slide board scoot transfer max A x 2 and max cues. total A x 2 for positioning on the chair. educated pt on use of polo lift transfers for safety and pt stated, as long as they do it slowly. Pt also has decrease safety awareness and stated that she needs big guys to lift her up to transfer. informed pt again regarding safety of pt and hospital staffs. call light and table positioned next to pt. PT-Balance Assessment Sitting Balance and Reactions Static Sitting Balance Ability Fair Dynamic Sitting Balance Ability Poor Standing Balance and Reactions Static Standing Balance Ability Poor Dynamic Standing Balance Ability Poor Device Used FWW M5 PT-IP Objective Assessments Start: 03/14/22 12:24 Freq: NEEDED Status: Active Protocol: Document 03/14/22 10:07 AB (Rec: 03/14/22 12:53 AB [id number]) Orientation Orientation/Cognition Level of Alertness Alert Orientation Name Language Function Ability No Deficits Noted Safety Awareness Decreased Safety Awareness Memory Description Short Term Impaired Gross Range of Motion Lower Extremity ROM Assessment Right Impaired Impairments increase RLE guarding and pt refused PT to move RLE Strength Comments Strength Comments RLE NT due to pt's refusal Muscle Tone Muscle Tone WNL Yes M6 PT-IP Treatment Start: 03/14/22 12:24 Freq: NEEDED Status: Active Protocol: Document 03/14/22 10:07 AB (Rec: 03/14/22 12:53 AB [email or web address]) Physical Therapy Treatment Education Education Provided Precautions,Weight Bearing Status,Safety M7 PT-IP Assessment and Plan Start: 03/14/22 12:24 Freq: NEEDED Status: Active Protocol: Document 03/14/22 10:07 AB (Rec: 03/14/22 12:53 AB [email or web address]) PT Summary Assessment and Plan Potential Rehabilitation Potential Fair Status of Condition at Evaluation Evolving Summary Impairments Pain,ROM,Strength,Balance, Coordination,Sensation,Tone, Cognition,Bed Mobility, Transfers,Gait,Activity Tolerance Assessment Summary pt requiring total A x 2 with mobility and pt tends to direct her own care. pt currently has R acetablular fx and has MRSA on R hip and is NWB at this time affecting mobility level. Pt will require SNF rehab to improve strength and mobility. Goals Bed Mobility Goal Moderate Assistance Transfer Goal Moderate Assistance,Front Wheeled Walker Gait Goal Moderate Assistance,Front Wheel Walker Gait Distance 25 Days to Meet Goals 10 Frequency of Treatment Frequency Of Treatment Once a Day Treatment Plan Physical Therapy Treatment Plan Bed Mobility Training,Transfer Training,Gait Training, Therapeutic Exercise,Balance Retraining,Post Op Education, Discharge Planning,Hot or Cold Pack,Neuromuscular Re-ed, Coordination Retraining,Manual Therapy Precautions Anterior Hip Precautions No Hip Extension,No Hip External Rotation Weight Bearing Status Weight Bearing Status Non-Weight Bearing Allowed Weight Bearing Amount (enter % RLE NWB or #) (%) Recommendations To Nursing Amount of Assist Needed Mechanical Lift Discharge Recommendations PT Discharge Recommendations SNF Rehab Transportation Needs at Discharge Wheelchair/Cabulance
--- NOTE | 2022-03-14 10:10 | CM.DPNOTE ---
Emailed referral to [facility] per Carlene. Fiordaliza Doe CM assist.
[2022-03-14 10:31] LABS: Vancomycin Trough 11.6 ug/mL (10-20)
[2022-03-14] MEDS: OXYCODONE IR 10 MG TABLET 15 MG PO ×4 (11:16→23:14)
[2022-03-14] MEDS: VANCOMYCIN 1,250 MG/250 ML PIGGYBACK 250 MG IV ×2 (11:25→21:54)
[2022-03-14] MEDS: VANCOMYCIN TROUGH 1 REQUEST MISC (11:26)
[2022-03-14 12:05] VITALS: BP 127/61; PULSE 66; RESP 17; TEMP 36.6; O2SAT 98
--- NOTE | 2022-03-14 13:04 | OT.IPNOTE ---
Attempted to do OT eval with pt and not ready to get back to bed. Pt able to talk to therapist regarding prior level of care. To touch base with pt tomorrow for OT eval and also be sure pt have pain medications on board prior to seeing the pt. No charge.
[2022-03-14] MEDS: HYDROMORPHONE 1 MG INJ IV ×3 (13:27→23:15)
--- NOTE | 2022-03-14 14:04 | PM.PN.1 ---
Subjective Subjective Interval history: no new complaints today Exam Vital Signs (past 8 hours): Oxygen Delivery Method Nasal Cannula Oxygen Flow Rate 2 Const General: cooperative and well developed Orientation: alert, awake and oriented x3 HENMT Head: normal to inspection Ears: external ears normal Mouth: oral mucosae normal Eyes Pupils: PERRL EOM: EOM intact bilaterally Neck Neck: normal visual inspection and full ROM Resp Effort & Inspection: normal respiratory effort Auscultation: clear to auscultation bilaterally Cardio Rate: regular rate Rhythm: regular rhythm GI Palpation: soft and no hepatosplenomegaly Auscultation: normal bowel sounds Skin General: no rashes or lesions noted Neuro General: patient alert, patient awake, patient oriented x3, moves all extremities and no focal motor deficits Speech: speech normal Extrem General: normal to inspection, full ROM and no pedal edema Psych Appearance: grossly normal Objective Labs Result Diagrams: 03/13/22 05:32 03/11/22 05:15 Labs: Laboratory Results - last 24 hr 03/13/22 03/14/22 03/14/22 14:33 00:23 09:45 Vancomycin Trough 11.6 C. difficile Tox (PCR) Negative for c. diff SARS-CoV-2 (PCR) Negative PFSH Medical History Actinic keratoses ADHD Arthritis B12 deficiency Back pain with history of spinal surgery BCC (basal cell carcinoma) Bleeding diathesis Cervical spondylosis Chronic pain DDD (degenerative disc disease) Depression Gastric ulcer (02/17/20) History of Mohs micrographic surgery for skin cancer HTN (hypertension) Hypersomnia Iron deficiency anemia Neurogenic claudication LEO (obstructive sleep apnea) Osteoarthritis Osteoporosis Psoriasis Psoriatic arthritis RBBB (right bundle branch block) RLS (restless legs syndrome) Rosacea SCC (squamous cell carcinoma) Scoliosis Sicca syndrome Spinal stenosis Spontaneous bruising Surgical History History of carpal tunnel surgery of left wrist History of carpal tunnel surgery of right wrist History of gastric bypass (~2004) History of hysterectomy (1995) History of reverse total replacement of right shoulder joint History of spinal fusion Hx of arthroscopy of left knee Hx of arthroscopy of right knee Hx of cholecystectomy Hx of toe surgery Social History household members: none Smoking Status: Never smoker alcohol intake: current substance use type: does not use Assessment & Plan Assessment & Plan narrative: [address] [address] Progress Note Patient: Rafita Merino MR#: [id number] : 1950 Acct:[id number] Age/Sex: 72 / F ? Date of Service: 03/09/22 Provider:?Annabelle Borges Subjective Subjective Interval history: pt c/o mild pain in hip area, she denies chest pain, shortness of breath Exam Vital Signs (past 8 hours): - ? 03/13/22 09:00 03/13/22 09:58 03/13/22 13:00 Temperature 99.0 F ? 98.1 F Pulse Rate 73 73 69 Respiratory Rate 18 ? 20 Blood Pressure 174/83 H 174/83 H 169/78 H Pulse Oximetry 97 ? 99 Oxygen Flow Rate 0 ? 0 Oxygen Delivery Method? Room Air? Oxygen Flow Rate? 0 ? Const General: cooperative and well developed Orientation: alert, awake and oriented x3 HENMT Head: normal to inspection Ears: external ears normal Mouth: oral mucosae normal Eyes Pupils: PERRL EOM: EOM intact bilaterally Neck Neck: normal visual inspection and full ROM Resp Effort & Inspection: normal respiratory effort Auscultation: clear to auscultation bilaterally Cardio Rate: regular rate Rhythm: regular rhythm GI Palpation: soft and no hepatosplenomegaly Auscultation: normal bowel sounds Skin General: no rashes or lesions noted Neuro General: patient alert, patient awake, patient oriented x3, moves all extremities and no focal motor deficits Speech: speech normal Extrem General: normal to inspection, full ROM and no pedal edema Psych Appearance: grossly normal Objective Labs Result Diagrams: 03/13/22 05:32? 03/11/22 05:15? Labs: Laboratory Results - last 24 hr ? 03/13/22 03/13/22 ? 05:32 11:40 WBC ?4.4 L ? RBC ?2.71 L ? Hgb ?9.5 L ? Hct ?27.8 L ? MCV ?102.6 H ? MCH ?35.1 H ? MCHC ?34.2 ? RDW ?17.9 H ? Plt Count ?250 ? Neut % (Auto) ?75.7 H ? Lymph % (Auto) ?11.0 L ? Campbell % (Auto) ?7.2 ? Eos % (Auto) ?5.7 H ? Baso % (Auto) ?0.4 ? Neut # (Auto) ?3300 ? Lymph # (Auto) ?500 L ? Campbell # (Auto) ?300 ? Eos # (Auto) ?200 ? Baso # (Auto) ?0 ? Blood Type ? ?O Negative Antibody Screen ? ?Negative Crossmatch ? ?See Detail Assessment & Plan ?Hip fracture , s/p R total hip arthroplasty ?- continue pain management ?- continue close monitoring ? ? Postoperative abscess ? - cx with MRSA ? - continue IV vanco ? - PICC line pending ? - needs 6 weeks of abx ? -s/p removal infected hardware ?Anemia of chronic disease ?- CBC daily ? ADHD ?- continue adderall ? Depression ?- continue buproprion DVT prophylaxis: SCD Code status: Full POA -? son Time Spent With Patient Critical Care time: I spent a total of [] minutes of critical care time on this patient's care today; this time is exclusive of procedural time. Quality VTE Deep Vein Thrombosis/Pulmonary Embolism Present on Admission: No
--- NOTE | 2022-03-14 14:33 | PM.PNPO.1 ---
Subjective Subjective Date Patient Seen: 03/14/22 Time Patient Seen: 12:30 Interval history: Patient is complaining of severe pain. She is currently in oxy 15 mg Q 3 hours. She typically takes oxycodone 20 mg 2-3 times daily at baseline due to her back pain. She also has baseline neuropathy/radiculopathy. She is very standoffish with me during our conversation, especially when trying to discuss adjusting her pain medications for better pain relief. Exam Vital Signs (past 8 hours): Oxygen Delivery Method Nasal Cannula Oxygen Flow Rate 2 Narrative Exam Narrative: 72-year-old female, resting in her chair, [id number] discomfort without movement. Dressing demonstrates some scant serous drainage in the mid aspect of the alice dressing. Her skin is tender to the touch. Mild to moderate warmth. Mild to moderate erythema, no gini pus. Hemovac has put out 70 cc. Bilateral lower extremity: Motor function is grossly intact, sensation is decreased bilaterally, patient notes this is her baseline, calves are soft and nontender to palpation. Objective Labs Result Diagrams: 03/13/22 05:32 03/11/22 05:15 Labs: Laboratory Results - last 24 hr 03/13/22 03/14/22 03/14/22 14:33 00:23 09:45 Vancomycin Trough 11.6 C. difficile Tox (PCR) Negative for c. diff SARS-CoV-2 (PCR) Negative PFSH Medical History Actinic keratoses ADHD Arthritis B12 deficiency Back pain with history of spinal surgery BCC (basal cell carcinoma) Bleeding diathesis Cervical spondylosis Chronic pain DDD (degenerative disc disease) Depression Gastric ulcer (02/17/20) History of Mohs micrographic surgery for skin cancer HTN (hypertension) Hypersomnia Iron deficiency anemia Neurogenic claudication LEO (obstructive sleep apnea) Osteoarthritis Osteoporosis Psoriasis Psoriatic arthritis RBBB (right bundle branch block) RLS (restless legs syndrome) Rosacea SCC (squamous cell carcinoma) Scoliosis Sicca syndrome Spinal stenosis Spontaneous bruising Surgical History History of carpal tunnel surgery of left wrist History of carpal tunnel surgery of right wrist History of gastric bypass (~2004) History of hysterectomy (1995) History of reverse total replacement of right shoulder joint History of spinal fusion Hx of arthroscopy of left knee Hx of arthroscopy of right knee Hx of cholecystectomy Hx of toe surgery Social History household members: none Smoking Status: Never smoker alcohol intake: current substance use type: does not use Assessment & Plan Post-op Postoperative Procedures: Procedures Operation Date: 03/13/22 14:15 Actual Procedure Side Surgeon p Right hip irrigation and debridement, removal of JENNIE, placement of spacer Right Pat Sy Hernandes MD Postoperative day: 1 Postoperative status: marginal pain control Postoperative status narrative: -right acetabular and inferior pubic rami fracture due to osteoporosis. Patient has longstanding history of osteoporosis. -right hip infected hematoma, MRSA positive, status post right total hip arthroplasty. -status post right total hip arthroplasty, anterior approach, on February 05, 2020 -chronic pain management patient with a history of extensive lumbar surgery and additional revision surgeries. Postoperative plan narrative: -Nonweightbearing on the right lower extremity. Okay to transfer out of bed. -CBC, CMP unable to be run today d/t lack of blood sample -discussed changing her pain medications, patient refused every suggestion I made. -Leave drain in for 48 hours after surgery. -PICC line placement today for IV antibiotics x6 weeks postop -IV antibiotics for 6 weeks. -Consider ID consult and follow up. No elevated WBC or fever with infected hematoma. -follow up with Dr. Hernandes in 10-14 days for a postop visit Quality VTE Deep Vein Thrombosis/Pulmonary Embolism Present on Admission: No
--- NOTE | 2022-03-14 15:09 | PM.PN.1 ---
Subjective Subjective Interval history: no complaints, feeling better, NG out this morning Exam Vital Signs (past 8 hours): - 03/14/22 12:05 Temperature 97.9 F Pulse Rate 66 Respiratory Rate 17 Blood Pressure 127/61 Pulse Oximetry 98 Oxygen Flow Rate 0 Oxygen Delivery Method Nasal Cannula Oxygen Flow Rate 0 Const General: cooperative and well developed Orientation: alert, awake and oriented x3 HENMT Head: normal to inspection Ears: external ears normal Mouth: oral mucosae normal Eyes Pupils: PERRL EOM: EOM intact bilaterally Neck Neck: normal visual inspection and full ROM Resp Effort & Inspection: normal respiratory effort Auscultation: clear to auscultation bilaterally Cardio Rate: regular rate Rhythm: regular rhythm GI Palpation: soft and no hepatosplenomegaly Auscultation: normal bowel sounds Skin General: no rashes or lesions noted Neuro General: patient alert, patient awake, patient oriented x3, moves all extremities and no focal motor deficits Speech: speech normal Extrem General: normal to inspection, full ROM and no pedal edema Psych Appearance: grossly normal Objective Labs Result Diagrams: 03/13/22 05:32 03/11/22 05:15 Labs: Laboratory Results - last 24 hr 03/14/22 03/14/22 00:23 09:45 Vancomycin Trough 11.6 C. difficile Tox (PCR) Negative for c. diff [facility] Medical History Actinic keratoses ADHD Arthritis B12 deficiency Back pain with history of spinal surgery BCC (basal cell carcinoma) Bleeding diathesis Cervical spondylosis Chronic pain DDD (degenerative disc disease) Depression Gastric ulcer (02/17/20) History of Mohs micrographic surgery for skin cancer HTN (hypertension) Hypersomnia Iron deficiency anemia Neurogenic claudication LEO (obstructive sleep apnea) Osteoarthritis Osteoporosis Psoriasis Psoriatic arthritis RBBB (right bundle branch block) RLS (restless legs syndrome) Rosacea SCC (squamous cell carcinoma) Scoliosis Sicca syndrome Spinal stenosis Spontaneous bruising Surgical History History of carpal tunnel surgery of left wrist History of carpal tunnel surgery of right wrist History of gastric bypass (~2004) History of hysterectomy (1995) History of reverse total replacement of right shoulder joint History of spinal fusion Hx of arthroscopy of left knee Hx of arthroscopy of right knee Hx of cholecystectomy Hx of toe surgery Social History household members: none Smoking Status: Never smoker alcohol intake: current substance use type: does not use Assessment & Plan Assessment & Plan narrative: ?wrong note Time Spent With Patient Critical Care time: I spent a total of [] minutes of critical care time on this patient's care today; this time is exclusive of procedural time. Quality VTE Deep Vein Thrombosis/Pulmonary Embolism Present on Admission: No
[2022-03-14 16:34] LABS: Hematocrit 25.8 % (36-46); Hemoglobin 8.6 g/dL (12.0-16.0)
[2022-03-14 16:55] LABS: Vancomycin Peak 27.7 ug/mL (20-40)
[2022-03-14 17:30] VITALS: BP 140/62; PULSE 78; RESP 19; TEMP 36.2; O2SAT 100
--- NOTE | 2022-03-14 19:00 | DI.RAD.S_ITS ---
PROCEDURE: XR CHEST FOR PICC 1V INDICATIONS: PICC placement COMPARISON: None. FINDINGS: PICC was placed by the intravenous therapy team from the left side. Fluoroscopic spot film demonstrates the tip of PICC projecting to the area of upper SVC. Incidental thoracic instrumentation and right hip arthroplasty IMPRESSION: Tip of PICC projects to the area of upper SVC. Approved by: Dmitri Gomez M.D. on 03/15/2022 at 11:27
[2022-03-14 20:35] VITALS: BP 141/50; PULSE 88; RESP 17; TEMP 37.2; O2SAT 100
[2022-03-14 21:28] VITALS: O2SAT 100
[2022-03-15] MEDS: ACETAMINOPHEN 325 MG TABLET 650 MG PO ×5 (00:29→23:40)
[2022-03-15] MEDS: IBUPROFEN 400 MG TABLET PO ×5 (00:29→23:40)
--- NOTE | 2022-03-15 05:09 | PC.NURSE ---
Spoke with Dr Hernandes, PICC line will be x-rayed in the morning when pt gets up to chair with lift. PICC line not used this shift. Will monitor.
[2022-03-15] MEDS: OXYCODONE IR 10 MG TABLET 15 MG PO ×4 (05:34→21:54)
[2022-03-15] MEDS: HYDROMORPHONE 1 MG INJ IV ×2 (05:36→11:20)
[2022-03-15 05:41] VITALS: BP 153/64; PULSE 78; RESP 17; TEMP 36.6; O2SAT 96
[2022-03-15 06:00] LABS: Estimated Glomerular Filt Rate > 60 mL/min (>60)
[2022-03-15 08:05] VITALS: BP 155/73; PULSE 76; RESP 19; TEMP 36.6; O2SAT 99
[2022-03-15] MEDS: DOXYCYCLINE HYCLATE 100 MG TABLET PO (08:13)
[2022-03-15] MEDS: MELOXICAM 7.5 MG TABLET 15 MG PO (08:14)
[2022-03-15] MEDS: VANCOMYCIN 1,250 MG/250 ML PIGGYBACK 250 MG IV ×2 (08:18→21:42)
--- NOTE | 2022-03-15 10:41 | PC.NURSE ---
Addendum entered by Nuno Monk R.N. 03/15/22 17:09: Xray completed on PICC lineand shows it to be in the upper part of the SVC per report. Spoke with Dr. Hernandes and discussed look on PICC dressing. Dr. Hernandes wants the PICC team here to look at it on Thursday. Message left for PICC Nurse. Dressing recovered with tegaderm but otherwise left as found this morning. Picc not to be used until assessed by PICC Nurse. Pt sleeping at present. Addendum entered by Nuno Monk R.N. 03/15/22 13:50: Pt up in chair about an hour and a bit. Requesting to get back to bed. Using the polo and with the assistance of Shila FRAUSTO. As before Pt was very directive and at points swearing and c/o spasms and pain. With much encouragement Pt was settled to bed and positioned to comfort. Pt requesting pain meds when available. Original Note: Pt alert and oriented, follows commands. Expresses herself well and makes needs known. Taking b'fast and pills easily.
--- NOTE | 2022-03-15 10:46 | PM.PN.1 ---
Subjective Subjective Interval history: no major complaints Exam Vital Signs (past 8 hours): - 03/15/22 05:41 03/15/22 08:05 Temperature 97.8 F 97.8 F Pulse Rate 78 76 Respiratory Rate 17 19 Blood Pressure 153/64 H 155/73 H Pulse Oximetry 96 99 Oxygen Flow Rate 0 0 Oxygen Delivery Method Room Air Oxygen Flow Rate 0 Const General: cooperative and well developed Orientation: alert, awake and oriented x3 HENMT Head: normal to inspection Ears: external ears normal Mouth: oral mucosae normal Eyes Pupils: PERRL EOM: EOM intact bilaterally Neck Neck: normal visual inspection and full ROM Resp Effort & Inspection: normal respiratory effort Auscultation: clear to auscultation bilaterally Cardio Rate: regular rate Rhythm: regular rhythm GI Palpation: soft and no hepatosplenomegaly Auscultation: normal bowel sounds Skin General: no rashes or lesions noted Neuro General: patient alert, patient awake, patient oriented x3, moves all extremities and no focal motor deficits Speech: speech normal Extrem General: normal to inspection, full ROM and no pedal edema Psych Appearance: grossly normal Objective Labs Result Diagrams: 03/14/22 14:00 03/15/22 05:30 Labs: Laboratory Results - last 24 hr 03/14/22 03/14/22 03/15/22 14:00 14:00 05:30 Hgb 8.6 L Hct 25.8 L Creatinine 0.46 L Estimated GFR > 60 Vancomycin Peak 27.7 PFSH Medical History Actinic keratoses ADHD Arthritis B12 deficiency Back pain with history of spinal surgery BCC (basal cell carcinoma) Bleeding diathesis Cervical spondylosis Chronic pain DDD (degenerative disc disease) Depression Gastric ulcer (02/17/20) History of Mohs micrographic surgery for skin cancer HTN (hypertension) Hypersomnia Iron deficiency anemia Neurogenic claudication LEO (obstructive sleep apnea) Osteoarthritis Osteoporosis Psoriasis Psoriatic arthritis RBBB (right bundle branch block) RLS (restless legs syndrome) Rosacea SCC (squamous cell carcinoma) Scoliosis Sicca syndrome Spinal stenosis Spontaneous bruising Surgical History History of carpal tunnel surgery of left wrist History of carpal tunnel surgery of right wrist History of gastric bypass (~2004) History of hysterectomy (1995) History of reverse total replacement of right shoulder joint History of spinal fusion Hx of arthroscopy of left knee Hx of arthroscopy of right knee Hx of cholecystectomy Hx of toe surgery Social History household members: none Smoking Status: Never smoker alcohol intake: current substance use type: does not use Assessment & Plan Assessment & Plan narrative: ?Hip fracture , s/p R total hip arthroplasty ?- continue pain management ?- continue close monitoring ? ? Postoperative abscess ? - cx with MRSA ? - continue IV vanco ? - PICC line placed ? - needs 6 weeks of abx ? - s/p removal infected hardware ?Anemia of chronic disease ?- CBC daily ? ADHD ?- continue adderall ? Depression ?- continue buproprion DVT prophylaxis: SCD Code status: Full POA -? son disposition: pending for SNF placement Time Spent With Patient Critical Care time: I spent a total of [] minutes of critical care time on this patient's care today; this time is exclusive of procedural time. Quality VTE Deep Vein Thrombosis/Pulmonary Embolism Present on Admission: No
--- NOTE | 2022-03-15 11:45 | PT.IPTN ---
Current Diagnoses Hemorrhagic condition, unspecified (03/09/22) Obstructive sleep apnea (adult) (pediatric) (03/09/22) Other acute postprocedural pain (03/09/22) Essential (primary) hypertension (03/09/22) Unspecified osteoarthritis, unspecified site (03/09/22) Pain in unspecified hip (03/09/22) Dorsalgia, unspecified (03/09/22) Spontaneous ecchymoses (03/09/22) Unspecified fracture of right acetabulum, initial encounter for closed fracture (03/09/22) Contusion of right hip, initial encounter (03/09/22) Presence of right artificial hip joint (03/09/22) Other specified postprocedural states (03/09/22) Surgery Performed Operation Date: 03/13/22 14:15 Actual Procedures p Right hip irrigation and debridement, removal of JENNIE, placement of spacer(Right) - Pat Hernandes MD Physical Therapy Treatment Note M2 PT-IP Current Condition Start: 03/14/22 12:24 Freq: NEEDED Status: Active Protocol: Document 03/14/22 10:07 AB (Rec: 03/14/22 12:53 AB [id number]) Physical Therapy Current Condition Current Condition Evaluation Date 03/14/22 Treatment Diagnosis R acetabular fx; R hip hematoma s/p I&D & spacer placement; diff in walking Onset Date 03/09/22 M3 PT-IP Subjective Start: 03/14/22 12:24 Freq: NEEDED Status: Active Protocol: Document 03/15/22 10:57 KS (Rec: 03/15/22 12:08 KS [id number]) Subjective Physical Therapy Visit Type Type Treatment Note Visit Start Time 10:57 Visit Stop Time 11:45 Total Visit Minutes 48 Number of AUTOMATIC 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 Required increased time for all tasks. Therapy Pain Assessment Pain When Pain Assessed At Rest Pain Present Pain Present Pain Reported Location Right Hip Intensity 10 Scale Used Numeric (0 - 10) Description Shooting,Stabbing Pain Behaviors Calling Out,Crying,Facial Grimacing,Guarding,Holding Area,Moaning,Restlessness, Wincing Pain Management Techniques Distraction,Elevation, Modification of Treatment,Re- positioning,Timing of Activity with Medications M4 PT-IP Mobility and Gait Start: 03/14/22 12:24 Freq: NEEDED Status: Active Protocol: Document 03/15/22 10:57 KS (Rec: 03/15/22 12:08 KS [id number]) PT-Bed Mobility Assessment Rolling Type of Rolling Log Rolling,Roll to Right,Roll to Left Level of Assist Standby Assistance PT-Transfer Assessment Transfers Transfer Destination Chair Transfer Technique Mechanical Lift Transfer Ability Level of Assist Total Assistance,2 Person Assistance Comments Mobility Comments Pt in bed upon arrival and agreeable to transfer to chair . Pt c/o increased pain and spasms R hip and leg. RN arrived to provide more pain medication. Pt refuses assistance for rolling from PT and OT, able to torll side to side but requires increased time for this task as well as every other task. Pt positioned on polo sling because she refused sitting EOB and trying slide board today. Attempted to lift pt w/ sling 3x but pt screaming out in pain before even being suspended above bed c/o of spasms. Pt at first insisting to assist her RLE w/ LLE but increasing stretch of R hamstring and spasm, pt later agreeable to have therapy assist w/ RLE during transfer. Pt used bed to incline in very minimal increments over several minutes of time. She preferred polo transfer in small increments as well when lifting her from bed. Transferred to chair and pt requird Max A to lean forward for pillow placement and again screamed out in pain during repositioning in chair. Pt unable to tolerate further PT and left in room w/ OT. M5 PT-IP Objective Assessments Start: 03/14/22 12:24 Freq: NEEDED Status: Active Protocol: Document 03/14/22 10:07 AB (Rec: 03/14/22 12:53 AB [id number]) Orientation Orientation/Cognition Level of Alertness Alert Orientation Name Language Function Ability No Deficits Noted Safety Awareness Decreased Safety Awareness Memory Description Short Term Impaired Gross Range of Motion Lower Extremity ROM Assessment Right Impaired Impairments increase RLE guarding and pt refused PT to move RLE Strength Comments Strength Comments RLE NT due to pt's refusal Muscle Tone Muscle Tone WNL Yes M6 PT-IP Treatment Start: 03/14/22 12:24 Freq: NEEDED Status: Active Protocol: Document 03/15/22 10:57 KS (Rec: 03/15/22 12:08 KS [id number]) Physical Therapy Treatment Education Education Provided Precautions,Weight Bearing Status,Safety M7 PT-IP Assessment and Plan Start: 03/14/22 12:24 Freq: NEEDED Status: Active Protocol: Document 03/15/22 10:57 KS (Rec: 03/15/22 12:08 KS [id number]) PT Summary Assessment and Plan Potential Rehabilitation Potential Fair Status of Condition at Evaluation Evolving Summary Impairments Pain,ROM,Strength,Balance, Coordination,Sensation,Tone, Cognition,Bed Mobility, Transfers,Gait,Activity Tolerance Assessment Summary Pt refused all PT aside from transfer from bed to chair using polo lift. She was able to logroll SBA w. cues for sling placement. She required 4 attempts for lift w/ sling d /t increased pain and spasms. Pt had success w/ inclined bed (that she adjusted primarily on her own) to be in already seated position prior to elevating from mostly flat bed . Needs support of RLE during transfer w/ slight knee flexion. Pt currently has R acetablular fx and has MRSA on R hip and is NWB at this time affecting mobility level. Pt will require SNF rehab to improve strength and mobility. Goals Bed Mobility Goal Moderate Assistance Transfer Goal Moderate Assistance,Front Wheeled Walker Gait Goal Moderate Assistance,Front Wheel Walker Gait Distance 25 Days to Meet Goals 10 Frequency of Treatment Frequency Of Treatment Once a Day Treatment Plan Physical Therapy Treatment Plan Bed Mobility Training,Transfer Training,Gait Training, Therapeutic Exercise,Balance Retraining,Post Op Education, Discharge Planning,Hot or Cold Pack,Neuromuscular Re-ed, Coordination Retraining,Manual Therapy Precautions Anterior Hip Precautions No Hip Extension,No Hip External Rotation Weight Bearing Status Weight Bearing Status Non-Weight Bearing Allowed Weight Bearing Amount (enter % RLE NWB or #) (%) Recommendations To Nursing Amount of Assist Needed Mechanical Lift Discharge Recommendations PT Discharge Recommendations SNF Rehab Transportation Needs at Discharge Wheelchair/Cabulance,Stretcher /Ambulance
--- NOTE | 2022-03-15 11:53 | OT.IP.TRT ---
Current Diagnoses Hemorrhagic condition, unspecified (03/09/22) Obstructive sleep apnea (adult) (pediatric) (03/09/22) Other acute postprocedural pain (03/09/22) Essential (primary) hypertension (03/09/22) Unspecified osteoarthritis, unspecified site (03/09/22) Pain in unspecified hip (03/09/22) Dorsalgia, unspecified (03/09/22) Spontaneous ecchymoses (03/09/22) Unspecified fracture of right acetabulum, initial encounter for closed fracture (03/09/22) Contusion of right hip, initial encounter (03/09/22) Presence of right artificial hip joint (03/09/22) Other specified postprocedural states (03/09/22) Surgery Performed Operation Date: 03/13/22 14:15 Actual Procedures p Right hip irrigation and debridement, removal of JENNIE, placement of spacer(Right) - Pat Hernandes MD Occupational Therapy Treatment Note M2 OT-IP Current Condition Start: 03/15/22 12:25 Freq: Status: Active Protocol: Document 03/15/22 12:26 CGR (Rec: 03/15/22 12:57 CGR [id number]) Occupational Therapy Current Condition Current Condition Evaluation Date 03/15/22 Treatment Diagnosis 03/13 I&D and removal of total R hip and placement of spacer Diagnosis Onset Date 03/10/22 Weight Bearing Status Weight Bearing Status Non-Weight Bearing M3 OT- IP Subjective and Pain Start: 03/15/22 12:25 Freq: Status: Active Protocol: Document 03/15/22 12:26 CGR (Rec: 03/15/22 12:57 CGR [id number]) OT- Subjective Occupational Therapy Visit Type Type Initial Evaluation Visit Start Time 10:58 Visit Stop Time 11:53 Total Visit Minutes 55 Notes Partial co-treat with P.T. OT Pain Assessment Pain When Pain Assessed During Mobility Pain Present Pain Present Pain Reported Location Right Hip Intensity 10 Scale Used Numeric (0 - 10) Management Techniques Distraction,Modification of Treatment,Re-positioning, Timing of Activity with Medications M4 OT- IP ADL's Start: 03/15/22 12:25 Freq: Status: Active Protocol: Document 03/15/22 12:26 CGR (Rec: 03/15/22 12:57 CGR [id number]) OT [id number] Comments OT Self-Feeding Comments not meal time OT ADL-Grooming General Evaluation Grooming Ability Independent Areas Needing Assistance Retrieving/Set-up of Grooming Items,Face Washing Comments OT Grooming Comments seated in chair with set up OT ADL-Oral Care General Eval Oral Care Ability Independent Areas of Assistance Brushing Teeth,Retrieving/Set- Up of Items Comments Oral Care Comments seated in chair with set up OT ADL-Dressing General Eval Lower Body Dressing Ability Total Assistance Areas Needing Assistance Socks OT ADL-Toileting Comments OT Toileting Comments not performed OT ADL-Bathing Comments OT Bathing Comments not performed M5 OT- IP IADL's Start: 03/15/22 12:25 Freq: Status: Active Protocol: Document 03/15/22 12:26 CGR (Rec: 03/15/22 12:57 CGR [id number]) OT-Instrumental Activities of Daily Living Deficits IADL Deficits Identified No Deficits Home Safety Awareness Awareness of Need for Assistance at Home Good Awareness Ability to Problem Solve Emergency Able to Problem Solve Situations Medication Management Medication Management No Deficits Identified Money Management Money Management No Deficits Identified Meal Preparation Meal Preparation Comments Concerns regarding pt's ability to perform 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 Caregiver Provides Assist M6 OT- IP Functional Cognition Start: 03/15/22 12:25 Freq: Status: Active Protocol: Document 03/15/22 12:26 CGR (Rec: 03/15/22 12:57 CGR [id number]) Cognitive Factors Limiting Selfcare Function Cognitive Ability Level of Alertness Alert Patient Orientation Name,Age,Birthday,Month,Date, Year,Day of Week,Place, Situation Attention Span Ability Capable of Focused Attention, Capable of Sustained Attention Ability to Follow Commands Able to Follow Multi-Step Commands OT- Vision and Hearing OT- Hearing Assessment OT- Hearing Assessment WFL OT- Vision Assessment Visual Acuity Glasses All The Time,Glasses For Reading Visual Attentiveness WFL Occular Pursuits WFL Visual Convergence WFL M7 OT- IP Mobility and Balance Start: 03/15/22 12:25 Freq: Status: Active Protocol: Document 03/15/22 12:26 CGR (Rec: 03/15/22 12:57 CGR [id number]) OT- Bed Mobility Assessment Rolling Type of Rolling Roll to Right,Roll to Left Level of Assistance Standby Assistance OT-Transfer Assessment Transfers Transfer Ability Total Assistance,2 Person Assistance Devices Transfer Assistive Devices Mechanical Lift Comments Mobility Comments Pt declined transfer without use of the lift. Pt needed max extra time for positioning in an upright position prior to lifting her with the lift. Then max assist for scooting in chair. OT- Gait Assessment Comments Gait Ability Comments Pt is not able to perform OT- Balance Assessment Sitting Balance and Reactions Static Sitting Balance Ability Fair Dynamic Sitting Balance Ability Poor M8 OT- IP Objective Assessments Start: 03/15/22 12:25 Freq: Status: Active Protocol: Document 03/15/22 12:26 CGR (Rec: 03/15/22 12:57 CGR [id number]) OT Gross Range of Motion Upper Extremity Range of Motion Assessment Within Functional Limits OT Strength Upper Extremity Strength Assessment Within Functional Limits Comments Strength Comments grossly 4 to 4+/5 OT- Coordination Assessment Upper Extremity Finger to Nose Test Within Functional Limits Finger Tapping Test Within Functional Limits OT-Muscle Tone Assessment Muscle Tone WNL Yes OT Sensation Assessment Comments Summary Comments Pt states her baseline is numbness and tingling to the middle of the forearm distal on BUE Edema Edema Absent M9 OT- IP Assessment and Plan Start: 03/15/22 12:25 Freq: Status: Active Protocol: Document 03/15/22 12:26 CGR (Rec: 03/15/22 12:57 CGR [id number]) OT Summary Assessment and Plan Potential Rehabilitation Potential Fair Analytic Complexity at Evaluation Moderate Summary OT Impairments Pain,Balance,Sensation, Functional Mobility,Self- Feeding,Grooming,Dressing, Toileting,Bathing,Toilet Transfers,Shower Transfers, Activity Tolerance Progress Towards Goals Slow Progress due to Pain Assessment Summary Pt presents as a moderate complexity evaluation s/p admit for 03/13/22 I&D and removal of the R JENNIE with placement of a spacer. Pt is extremely active in dictating her care and requires extra time for all movement to limit pain and prevent the leg from spasming. Pt was able to transfer with the use of the lift and performed ADLs seated in chair. Pt left sitting up in chair at end of session, call button within reach and all needs at time met. Goals Grooming Goal Independent Dressing Goal Independent,Wire Tester,Sock Aid Toileting Goal Minimal Assistance Bathing Goal Minimal Assistance Toilet Transfer Goal Moderate Assistance,Bedside Commode Days to Meet Goals 30 Frequency of Treatment Frequency Of Treatment Once a Day Treatment Plan OT Treatment Plan ADL Training,Functional Mobility,Patient/Family Education,Discharge Planning Other Treatment Recommendations and Next co-treat with p.t. for all Treatment Focus mobility Discharge Recommendations OT Discharge Recommendations SNF Rehab Transportation Needs at Discharge Wheelchair/Cabulance
[2022-03-15 13:00] VITALS: BP 153/65; PULSE 99; RESP 22; TEMP 36.1; O2SAT 100
--- NOTE | 2022-03-15 13:06 | PM.PN.1 ---
Subjective Subjective Date Patient Seen: 03/15/22 Time Patient Seen: 13:06 Interval history: She notes she is doing a little better overall. She was mobilized out of bed with a lift. She saw substantial pain with range of motion in her right hip. She is having some issues with diarrhea. She denies specific new popping clicking or crunching in the right hip. She is not having chest pain or shortness of breath. Exam Vital Signs (past 8 hours): - 03/15/22 05:41 03/15/22 08:05 Temperature 97.8 F 97.8 F Pulse Rate 78 76 Respiratory Rate 17 19 Blood Pressure 153/64 H 155/73 H Pulse Oximetry 96 99 Oxygen Flow Rate 0 0 Oxygen Delivery Method Room Air Oxygen Flow Rate 0 Narrative Exam Narrative: She is resting comfortably in a chair, lungs are clear, PICC line dressings intact, right hip dressing is improved, failed fire toe flexors and extensors her calfs are soft and there is mild swelling in her legs bilaterally per Objective Labs Result Diagrams: 03/14/22 14:00 03/15/22 05:30 Labs: Laboratory Results - last 24 hr 03/14/22 03/14/22 03/15/22 14:00 14:00 05:30 Hgb 8.6 L Hct 25.8 L Creatinine 0.46 L Estimated GFR > 60 Vancomycin Peak 27.7 PFSH Medical History Actinic keratoses ADHD Arthritis B12 deficiency Back pain with history of spinal surgery BCC (basal cell carcinoma) Bleeding diathesis Cervical spondylosis Chronic pain DDD (degenerative disc disease) Depression Gastric ulcer (02/17/20) History of Mohs micrographic surgery for skin cancer HTN (hypertension) Hypersomnia Iron deficiency anemia Neurogenic claudication LEO (obstructive sleep apnea) Osteoarthritis Osteoporosis Psoriasis Psoriatic arthritis RBBB (right bundle branch block) RLS (restless legs syndrome) Rosacea SCC (squamous cell carcinoma) Scoliosis Sicca syndrome Spinal stenosis Spontaneous bruising Surgical History History of carpal tunnel surgery of left wrist History of carpal tunnel surgery of right wrist History of gastric bypass (~2004) History of hysterectomy (1995) History of reverse total replacement of right shoulder joint History of spinal fusion Hx of arthroscopy of left knee Hx of arthroscopy of right knee Hx of cholecystectomy Hx of toe surgery Social History household members: none Smoking Status: Never smoker alcohol intake: current substance use type: does not use Assessment & Plan Assessment and plan (1) Hematoma of right hip: Status: Acute (2) Right acetabular fracture: Status: Acute (3) Status post total hip replacement, right: Status: Acute Plan Slowly improving with history of removal of a total hip arthroplasty placement of a spacer. Recommendations and plan continue to work on gradual mobilizing. Anticipate discharge to a detention facility on IV antibiotics for 6 weeks postoperatively. Recommend consultation with Infectious Disease through [facility]. Patient is probably going to go to a rehab facility in [place] which potentially would be more convenient for having follow-up with Infectious Disease as well as at our clinic. Anticipate 6 weeks of IV antibiotics and ultimate long-term reconstruction will probably be in [place] or a more tertiary care center. We will continue to mobilize her with therapy. Time Spent With Patient Critical Care time: I spent a total of [] minutes of critical care time on this patient's care today; this time is exclusive of procedural time. Quality VTE Deep Vein Thrombosis/Pulmonary Embolism Present on Admission: No
--- NOTE | 2022-03-15 14:44 | CM.DPNOTE ---
DCP Note Spoke w/son Trevin this morning. Son wonders if patient could DC to a SNF closer to [place]. Says he would be agreeable to local SNF but would prefer patient was closer to him. Suggested that son review the following website: https://www.medicare.gov/nursinghomecompare/search.html Emailed this to leslye Zhong at : Have not heard back Explained to son process of this DC planning team: If a local facility has clinically accepted and secured authorization from insurance company and patient is medically stable, bed needs to be secured. Son states understanding and is agreeable Contacted Rasheeda at [facility] and she said she did not have this referral (emailed yesterday) faxed to Gianna today at F# [phone], Rasheeda reviewing JW
[2022-03-15 15:15] VITALS: BP 177/79; PULSE 92; RESP 19; TEMP 36.1; O2SAT 100
[2022-03-15 21:45] VITALS: BP 157/74; PULSE 80; RESP 16; TEMP 36.8; O2SAT 97
[2022-03-16 06:20] VITALS: BP 173/76; PULSE 82; RESP 18; TEMP 37.1; O2SAT 96
[2022-03-16] MEDS: IBUPROFEN 400 MG TABLET PO ×3 (06:50→20:37)
[2022-03-16] MEDS: ACETAMINOPHEN 325 MG TABLET 650 MG PO ×3 (06:50→20:36)
[2022-03-16 09:00] VITALS: BP 182/91; PULSE 83; RESP 18; TEMP 36.8; O2SAT 99
[2022-03-16 09:21] LABS: Vancomycin Trough 12.6 ug/mL (10-20)
[2022-03-16] MEDS: VANCOMYCIN TROUGH 1 REQUEST MISC (10:29)
[2022-03-16] MEDS: MELOXICAM 7.5 MG TABLET 15 MG PO (10:30)
[2022-03-16] MEDS: DOXYCYCLINE HYCLATE 100 MG TABLET PO (10:30)
[2022-03-16] MEDS: OXYCODONE IR 10 MG TABLET 15 MG PO (10:30)
[2022-03-16] MEDS: VANCOMYCIN 1,250 MG/250 ML PIGGYBACK 250 MG IV ×2 (10:32→22:35)
--- NOTE | 2022-03-16 10:55 | PM.PNPO.1 ---
Subjective Subjective Date Patient Seen: 03/16/22 Time Patient Seen: 11:00 Interval history: She continues to note ongoing severe right hip pain. She has not been out of bed to chair yet. She has not had fevers or chills. He does have a history of an ulcer and does not want to take anti-inflammatories or Toradol. She is quite concerned about being transported to a snf facility. Exam Vital Signs (past 8 hours): - 03/16/22 06:20 03/16/22 09:00 Temperature 98.8 F 98.2 F Pulse Rate 82 83 Respiratory Rate 18 18 Blood Pressure 173/76 H 182/91 H Pulse Oximetry 96 99 Oxygen Flow Rate 0 0 Oxygen Delivery Method Room Air Oxygen Flow Rate 0 Narrative Exam Narrative: She is alert she is oriented her dressing is dry, she has fairly severe pain with attempted gentle range of motion in her right hip, her alice dressing is changed. Her drain is discontinued. There was a small amount of drainage from her drain side. The fecal was noted to be functional and working after alice dressing change. She can fire toe flexors and extensors, calfs are soft bilaterally distally Objective Labs Result Diagrams: 03/14/22 14:00 03/15/22 05:30 Labs: Laboratory Results - last 24 hr 03/16/22 08:30 Vancomycin Trough 12.6 PFSH Medical History Actinic keratoses ADHD Arthritis B12 deficiency Back pain with history of spinal surgery BCC (basal cell carcinoma) Bleeding diathesis Cervical spondylosis Chronic pain DDD (degenerative disc disease) Depression Gastric ulcer (02/17/20) History of Mohs micrographic surgery for skin cancer HTN (hypertension) Hypersomnia Iron deficiency anemia Neurogenic claudication LEO (obstructive sleep apnea) Osteoarthritis Osteoporosis Psoriasis Psoriatic arthritis RBBB (right bundle branch block) RLS (restless legs syndrome) Rosacea SCC (squamous cell carcinoma) Scoliosis Sicca syndrome Spinal stenosis Spontaneous bruising Surgical History History of carpal tunnel surgery of left wrist History of carpal tunnel surgery of right wrist History of gastric bypass (~2004) History of hysterectomy (1995) History of reverse total replacement of right shoulder joint History of spinal fusion Hx of arthroscopy of left knee Hx of arthroscopy of right knee Hx of cholecystectomy Hx of toe surgery Social History household members: none Smoking Status: Never smoker alcohol intake: current substance use type: does not use Assessment & Plan Post-op Postoperative Procedures: Procedures Operation Date: 03/13/22 14:15 Actual Procedure Side Surgeon p Right hip irrigation and debridement, removal of JENNIE, placement of spacer Right Pat Hernandes MD Postoperative day: 3 Postoperative status narrative: She is stable postoperatively. Were going to continue with her IV antibiotics. Postoperative plan narrative: The overall plan is to continue IV antibiotics with discharge to snf facility either Thursday or Thursday. I anticipate she will need 6 weeks of IV antibiotics. I would like her preferentially to be placed in [place] so that we can have her be seen by infectious disease and follow-up with me. She is having substantial problems with pain management. She chronically takes narcotics. I have recommended that we change her prescription to oxycodone 20 mg p.o. q.3 hours and switch her to oral Dilaudid for breakthrough pain. She has a severe problem. She has an extensive spine fusion which is fused from her upper thoracic spine across her sacrum. She has marked impaired mobility and will need to be transported in a supine position. She can have slight right hip flexion for transport. She cannot go by conventional car or even by wheelchair transport. She has a right acetabular fracture and also a right hip antibiotic spacer which severely limits her hip mobility. She also has severe pain and chronic pain issues and she needs to be transported in a supine position. Time Spent With Patient Time with patient: 15-24 minutes Quality VTE Deep Vein Thrombosis/Pulmonary Embolism Present on Admission: No
--- NOTE | 2022-03-16 11:11 | CM.DPC ---
Addendum entered by TAYLOR Hurd 03/16/22 12:56: ADD: Per Ortho MD, requesting BLS transport for pt due to pain with mobility, non-healed fx, pins and still strongly recommending SNF and SW completed BLS form and attached MD's supporting documentation to provide to [facility] at transport. Still awaiting confirmation of accepting SNF and insurance auth before scheduling BLS transport. BF Original Note: DCP SNF Planning Per Ortho, pt making progress and still has some hip pain and still recommending likely 6 weeks IV-Abx and SNF at d/c and preference is SNF in [facility] area if possible for easier ID MD to follow for the IV-abx. Per director of nuclear medicine, pt's current PICC that was placed by outside PICC company may need to be replaced tomorrow Mon 03/17 when Eugenia BORJA RN available to review pt's current PICC to see if its viable. STANLEY called pt's son and left msg as he was considering a SNF maybe closer to [place]. STANLEY called [facility] w/e admissions to follow up on referral previously faxed and called on and w/e admissions states she will be in their building around 1300 and can review at that time. STANLEY also called [facility], [facility], and [facility] admissions and requested review of new referral for likely d/c in 1-2 days and pt would need to have [facility] auth obtained. STANLEY faxed referral to all 3 SNF's for review. [facility] previously completed. Plan: STANLEY to follow for [facility], [facility], [facility], [facility] review to confirm in the AM if one can accept and start auth for SNF. SW to follow for possible new PICC placement tomorrow Mon as well. TAYLOR Hurd
--- NOTE | 2022-03-16 11:37 | P.PN_ITS ---
Subjective Subjective Interval history: c/o uncontrolled pain in hip, diarrhea Exam Vital Signs (past 8 hours): - 03/16/22 06:20 03/16/22 09:00 Temperature 98.8 F 98.2 F Pulse Rate 82 83 Respiratory Rate 18 18 Blood Pressure 173/76 H 182/91 H Pulse Oximetry 96 99 Oxygen Flow Rate 0 0 Oxygen Delivery Method Room Air Oxygen Flow Rate 0 Const General: cooperative and well developed Orientation: alert, awake and oriented x3 HENMT Head: normal to inspection Ears: external ears normal Mouth: oral mucosae normal Eyes Pupils: PERRL EOM: EOM intact bilaterally Neck Neck: normal visual inspection and full ROM Resp Effort & Inspection: normal respiratory effort Auscultation: clear to auscultation bilaterally Cardio Rate: regular rate Rhythm: regular rhythm GI Palpation: soft and no hepatosplenomegaly Auscultation: normal bowel sounds Skin General: no rashes or lesions noted Neuro General: patient alert, patient awake, patient oriented x3, moves all extremities and no focal motor deficits Speech: speech normal Extrem General: normal to inspection, full ROM and no pedal edema Psych Appearance: grossly normal Objective Labs Result Diagrams: 03/14/22 14:00 03/15/22 05:30 Labs: Laboratory Results - last 24 hr 03/16/22 08:30 Vancomycin Trough 12.6 PFSH Medical History Actinic keratoses ADHD Arthritis B12 deficiency Back pain with history of spinal surgery BCC (basal cell carcinoma) Bleeding diathesis Cervical spondylosis Chronic pain DDD (degenerative disc disease) Depression Gastric ulcer (02/17/20) History of Mohs micrographic surgery for skin cancer HTN (hypertension) Hypersomnia Iron deficiency anemia Neurogenic claudication LEO (obstructive sleep apnea) Osteoarthritis Osteoporosis Psoriasis Psoriatic arthritis RBBB (right bundle branch block) RLS (restless legs syndrome) Rosacea SCC (squamous cell carcinoma) Scoliosis Sicca syndrome Spinal stenosis Spontaneous bruising Surgical History History of carpal tunnel surgery of left wrist History of carpal tunnel surgery of right wrist History of gastric bypass (~2004) History of hysterectomy (1995) History of reverse total replacement of right shoulder joint History of spinal fusion Hx of arthroscopy of left knee Hx of arthroscopy of right knee Hx of cholecystectomy Hx of toe surgery Social History household members: none Smoking Status: Never smoker alcohol intake: current substance use type: does not use Assessment & Plan Assessment & Plan narrative: Hip fracture , s/p R total hip arthroplasty ?- continue pain management - ortho team increased pain meds doses - continue close monitoring -PT/OT? ? Postoperative abscess ? - cx with MRSA ? - continue IV vanco ? ?- needs 6 weeks of abx ? - s/p removal infected hardware - needs f/u ID ?Anemia of chronic disease ?- CBC pending ? ADHD ?- continue adderall ? Depression ?- continue buproprion Opioids dependant requesting to increase her opioids for pain ?DVT prophylaxis: SCD ?Code status: Full ?POA -? son disposition: pending [facility]and[facility], pt and rn Time Spent With Patient Critical Care time: I spent a total of [] minutes of critical care time on this patient's care today; this time is exclusive of procedural time. Quality VTE Deep Vein Thrombosis/Pulmonary Embolism Present on Admission: No
[2022-03-16 13:00] VITALS: BP 172/88; PULSE 90; RESP 18; TEMP 36.5; O2SAT 99
--- NOTE | 2022-03-16 16:10 | PC.NURSE ---
ASSESSED PT'S PICC LINE AND DID COMPLETE DRESSING CHANGE - ABLE TO FLUSH SMOOTHLY AND WITHDRAW BLOOD WITHOUT DIFFICULTY- PT VERY SATISFIED THAT LAB DRAWS COULD BE EFFECTIVELY PULLED FROM ACCURATELY PLACED LINE-
[2022-03-16] MEDS: OXYCODONE IR 5 MG TABLET 20 MG PO (16:33)
[2022-03-16 16:51] VITALS: BP 172/86; PULSE 81; RESP 18; TEMP 37.1; O2SAT 99
--- NOTE | 2022-03-16 19:35 | PC.NURSE ---
1100 Provided rodriguez catheter care and roger care. Pt has redness of the vagina and bilateral inner thighs. Pt states she has been applying barrier cream herself. Dr. Wilder notified in person and no new orders.
[2022-03-16 19:45] VITALS: BP 176/85; PULSE 79; RESP 16; TEMP 36.7; O2SAT 99
[2022-03-16 20:07] VITALS: O2SAT 99
[2022-03-16] MEDS: buPROPion SR 150 MG TAB PO (23:07)
[2022-03-16] MEDS: PREGABALIN 75 MG CAPSULE 150 MG PO (23:07)
[2022-03-17] MEDS: ACETAMINOPHEN 325 MG TABLET 650 MG PO ×3 (02:08→12:50)
[2022-03-17 02:10] VITALS: BP 158/83; PULSE 84; RESP 16; TEMP 36.8; O2SAT 97
[2022-03-17] MEDS: IBUPROFEN 400 MG TABLET PO ×3 (02:11→12:50)
[2022-03-17] MEDS: OXYCODONE IR 5 MG TABLET 20 MG PO ×2 (02:13→08:53)
--- NOTE | 2022-03-17 07:22 | P.PN_ITS ---
Subjective Subjective Date Patient Seen: 03/17/22 Time Patient Seen: 07:23 Interval history: 72-year-old extremely complicated female with a history of a very extensive spine surgery with extensive fusion from the sacrum to her upper thoracic spine and known osteoporosis.? She also has a history of a bleeding disorder.? 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 She previously underwent a right total hip arthroplasty through an anterior approach on 02/04/2022.? She was seen in the postoperative period and noted to have findings consistent with a possible wound hematoma or seroma.? About a month after surgery she was getting up from a chair when she noticed some increased right hip pain.? She had a CT scan which showed evidence of an acetabular fracture and a right hip fluid collection and hematoma possible infection.? She was taken to surgery on 03/13/2022 for hip I&D, removal of the acetabular and femoral components, and placement of a femoral antibiotic spacer. She tells me this morning that she did not get out of bed yesterday due to significant pain; she felt that she needed a day off. She is currently receiving oxycodone 20 mg q 3 hours as well as dilaudid q 3 hours for BTP. She expressed concern that her bupropion, cymbalta, and Lyrica have not been ordered appropriately, but I did check her MAR and current orders match her reported home dosing. She complains of perineal itching and would like nystatin cream. Exam Vital Signs (past 8 hours): - 03/17/22 02:10 Temperature 98.3 F Pulse Rate 84 Respiratory Rate 16 Blood Pressure 158/83 H Pulse Oximetry 97 Oxygen Flow Rate 0 Oxygen Delivery Method Room Air Oxygen Flow Rate 0 Narrative Exam Narrative: SHEREE dressing with scant bloody drainage; SHEREE working appropriately. There is also some gauze posterior to the dressing that appears to be covering a skin tear; this has some old bloody drainage. DF and PF intact on right. Calves are both soft, compressible, and nontender. She has a confluent red rash on her buttocks and perineal area; no gross skin breakdown noted at this time. Bryan catheter with clear yellow urine. Objective Labs Result Diagrams: 03/14/22 14:00 03/15/22 05:30 Labs: Laboratory Results - last 24 hr 03/16/22 08:30 Vancomycin Trough 12.6 PFSH Medical History Actinic keratoses ADHD Arthritis B12 deficiency Back pain with history of spinal surgery BCC (basal cell carcinoma) Bleeding diathesis Cervical spondylosis Chronic pain DDD (degenerative disc disease) Depression Gastric ulcer (02/17/20) History of Mohs micrographic surgery for skin cancer HTN (hypertension) Hypersomnia Iron deficiency anemia Neurogenic claudication LEO (obstructive sleep apnea) Osteoarthritis Osteoporosis Psoriasis Psoriatic arthritis RBBB (right bundle branch block) RLS (restless legs syndrome) Rosacea SCC (squamous cell carcinoma) Scoliosis Sicca syndrome Spinal stenosis Spontaneous bruising Surgical History History of carpal tunnel surgery of left wrist History of carpal tunnel surgery of right wrist History of gastric bypass (~2004) History of hysterectomy (1995) History of reverse total replacement of right shoulder joint History of spinal fusion Hx of arthroscopy of left knee Hx of arthroscopy of right knee Hx of cholecystectomy Hx of toe surgery Social History household members: none Smoking Status: Never smoker alcohol intake: current substance use type: does not use Assessment & Plan Post-op Postoperative Procedures: Procedures Operation Date: 03/13/22 14:15 Actual Procedure Side Surgeon p Right hip irrigation and debridement, removal of JENNIE, placement of spacer Right Pat Hernandes MD Postoperative day: 4 Postoperative status narrative: The plan is to transfer her to [facility] via ambulance due to her limited mobility and significant pain due to both past spinal procedures and current acetabular fracture and post-surgical non- weightbearing status. Her PICC line was cleaned yesterday and found to be in good working condition. Her PCR cultures are still pending, but other intraoperative wound cultures have grown out MRSA. She will remain on vancomycin for [address] Hernandes has consulted the infectious disease departm ent at [facility]. Postoperative plan narrative: 1) Follow up with Dr Hernandes in office between March 23 and March 27. This is a wound check appointment, and if she is in too much pain for transport to the office, her SHEREE dressing and grayson can be removed at the [facility] facility. She should follow up with Dr Hernandes in office in 4 weeks, maximum. 2) Oxycodone 20 mg q 3 hours for moderate pain and hydromorphone 2 mg q 3 hours for severe pain along with home dose of Lyrica 150 mg BID appears to be effective for pain control. 3) Nystatin cream to perineal area; pt likely needs barrier cream or other type of topical to help prevent skin breakdown due to limited mobility. Quality VTE Deep Vein Thrombosis/Pulmonary Embolism Present on Admission: No
--- NOTE | 2022-03-17 08:13 | CM.DPC ---
Addendum entered by Luz Maria Francois R.N. 03/17/22 15:16: Met with patient to follow up with skilled facilities. Stated, son toured [facility], was ok. Mentioned, [facility] is too far. Patient indicated that she has a friend in the [place] area that would be able to visit her. Son, Trevin, was also going to tour [facility]. Left Roxana a message, for she called to inquire if she should start auth. Left her a message to go ahead and start auth. Ashley at [facility] has not yet made final decision as well. Addendum entered by Luz Maria Francois R.N. 03/17/22 12:12: Roxana at [facility] has accepted patient. Met with patient in her room, with TAYLOR Neil, and gave her update. Patient indicated, I'm not sure if my son toured that place, or if it's a good facility. Let her know that there are not many other facilities that can accept, explained to her that [facility] has declined, as well as [facility]. Also let her know that referral was sent over to [facility] in [place]. She is planning on her son, Trevin, looking at [facility] today. Updated Roxana at [facility] that he is contacting her. Did speak to Ashley at [facility], and she is not sure she can accept due to hoier, and heavy care, but will ask her team. Did mention the other alternative of her going home, which patient is not opposed to, she would just need a hospital bed. This can be set up with [facility], and [facility]. But at this time, [facility] can accept, and [facility] and [facility] are reviewing. Luz Maria Francois RN/Plastics Fitter Original Note: DCP Cont: Left a message with [facility] to see if she could potentially accept patient. Court from [facility] has declined patient. [facility] has also been sent referral, have not yet heard back. It is noted that Dr. Hernandes feels that BLS may be necessary to transport patient. Lidia at [facility] is also reviewing. P: DCP to continue to follow and seek placement. Luz Maria Francois RN/Plastics Fitter
[2022-03-17] MEDS: DOXYCYCLINE HYCLATE 100 MG TABLET PO (08:43)
[2022-03-17] MEDS: DULOXETINE 30 MG CAPSULE 60 MG PO (08:43)
[2022-03-17] MEDS: buPROPion SR 150 MG TAB PO ×2 (08:43→21:17)
[2022-03-17] MEDS: MELOXICAM 7.5 MG TABLET 15 MG PO (08:43)
[2022-03-17] MEDS: PREGABALIN 75 MG CAPSULE 150 MG PO ×2 (08:44→21:17)
[2022-03-17 09:04] VITALS: BP 158/85; PULSE 86; RESP 17; TEMP 36.2; O2SAT 98
[2022-03-17] MEDS: VANCOMYCIN 1,250 MG/250 ML PIGGYBACK 250 MG IV ×2 (10:30→21:15)
[2022-03-17 10:48] LABS: Estimated Glomerular Filt Rate > 60 mL/min (>60)
--- NOTE | 2022-03-17 11:06 | CM.DPNOTE ---
Faxed referral to [facility] per Carlene and received fax conf. Fiordaliza Doe CM Assist.
[2022-03-17] MEDS: HYDROMORPHONE 2 MG TABLET PO (12:51)
--- NOTE | 2022-03-17 13:30 | PM.PN.1 ---
Subjective Subjective Interval history: still c/o pain Exam Vital Signs (past 8 hours): - 03/17/22 09:04 Temperature 97.2 F L Pulse Rate 86 Respiratory Rate 17 Blood Pressure 158/85 H Pulse Oximetry 98 Oxygen Flow Rate 0 Oxygen Delivery Method Room Air Oxygen Flow Rate 0 Const General: cooperative and well developed Orientation: alert, awake and oriented x3 HENMT Head: normal to inspection Ears: external ears normal Mouth: oral mucosae normal Eyes Pupils: PERRL EOM: EOM intact bilaterally Neck Neck: normal visual inspection and full ROM Resp Effort & Inspection: normal respiratory effort Auscultation: clear to auscultation bilaterally Cardio Rate: regular rate Rhythm: regular rhythm GI Palpation: soft and no hepatosplenomegaly Auscultation: normal bowel sounds Skin General: no rashes or lesions noted Neuro General: patient alert, patient awake, patient oriented x3, moves all extremities and no focal motor deficits Speech: speech normal Extrem General: normal to inspection, full ROM and no pedal edema Psych Appearance: grossly normal Objective Labs Result Diagrams: 03/14/22 14:00 03/17/22 08:30 Labs: Laboratory Results - last 24 hr 03/17/22 03/17/22 08:30 08:30 Creatinine 0.45 L Estimated GFR > 60 Vancomycin Peak 12.0 L PFSH Medical History Actinic keratoses ADHD Arthritis B12 deficiency Back pain with history of spinal surgery BCC (basal cell carcinoma) Bleeding diathesis Cervical spondylosis Chronic pain DDD (degenerative disc disease) Depression Gastric ulcer (02/17/20) History of Mohs micrographic surgery for skin cancer HTN (hypertension) Hypersomnia Iron deficiency anemia Neurogenic claudication LEO (obstructive sleep apnea) Osteoarthritis Osteoporosis Psoriasis Psoriatic arthritis RBBB (right bundle branch block) RLS (restless legs syndrome) Rosacea SCC (squamous cell carcinoma) Scoliosis Sicca syndrome Spinal stenosis Spontaneous bruising Surgical History History of carpal tunnel surgery of left wrist History of carpal tunnel surgery of right wrist History of gastric bypass (~2004) History of hysterectomy (1995) History of reverse total replacement of right shoulder joint History of spinal fusion Hx of arthroscopy of left knee Hx of arthroscopy of right knee Hx of cholecystectomy Hx of toe surgery Social History household members: none Smoking Status: Never smoker alcohol intake: current substance use type: does not use Assessment & Plan Assessment & Plan narrative: Hip fracture , s/p R total hip arthroplasty ?- continue pain management - ortho team increased pain meds doses - continue close monitoring - continue PT/OT? ? Postoperative abscess ? - cx with MRSA ? - continue IV vanco ? ?- needs 6 weeks of abx ? - s/p removal infected hardware - needs f/u ID ?Anemia of chronic disease ?- CBC pending ? ADHD ?- continue adderall ? Depression ?- continue bupropion Opioids dependant requesting to increase her opioids for pain and c/o pain ?DVT prophylaxis: SCD ?Code status: Full ?POA -? son disposition: pending for SNF placement discussed in detaisl with pt and rn Time Spent With Patient Critical Care time: I spent a total of [] minutes of critical care time on this patient's care today; this time is exclusive of procedural time. Quality VTE Deep Vein Thrombosis/Pulmonary Embolism Present on Admission: No
--- NOTE | 2022-03-17 13:54 | PT.IPTN ---
Current Diagnoses Hemorrhagic condition, unspecified (03/09/22) Obstructive sleep apnea (adult) (pediatric) (03/09/22) Other acute postprocedural pain (03/09/22) Essential (primary) hypertension (03/09/22) Unspecified osteoarthritis, unspecified site (03/09/22) Pain in unspecified hip (03/09/22) Dorsalgia, unspecified (03/09/22) Spontaneous ecchymoses (03/09/22) Unspecified fracture of right acetabulum, initial encounter for closed fracture (03/09/22) Contusion of right hip, initial encounter (03/09/22) Presence of right artificial hip joint (03/09/22) Other specified postprocedural states (03/09/22) Surgery Performed Operation Date: 03/13/22 14:15 Actual Procedures p Right hip irrigation and debridement, removal of JENNIE, placement of spacer(Right) - Pat Hernandes MD Physical Therapy Treatment Note M2 PT-IP Current Condition Start: 03/14/22 12:24 Freq: NEEDED Status: Active Protocol: Document 03/17/22 13:20 SP (Rec: 03/17/22 16:39 SP [id number]) Physical Therapy Current Condition Current Condition Evaluation Date 03/14/22 Treatment Diagnosis R acetabular fx; R hip hematoma s/p I&D & spacer placement; diff in walking Onset Date 03/09/22 M3 PT-IP Subjective Start: 03/14/22 12:24 Freq: NEEDED Status: Active Protocol: Document 03/17/22 13:20 SP (Rec: 03/17/22 16:39 SP [id number]) Subjective Physical Therapy Visit Type Type Treatment Note Visit Start Time 13:20 Visit Stop Time 13:54 Total Visit Minutes 34 Notes Cotx with OT for safety physical assist of 2nd person. Number of BUSINESS INTELLIGENCE REPORTING ANALYST Visits 2 Physical Therapy Visit Comments Patient Comments Pt directing her own very specific mobility support with decreased pain this tx. Required increased time for all tasks. Patient Goals Agreeable to come to standing. Therapy Pain Assessment Pain When Pain Assessed During Mobility Pain Present Pain Present Pain Reported Location Right Hip Intensity 6 Scale Used Numeric (0 - 10) Description Aching,Spasm,Tender,With Movement Pain Behaviors Facial Grimacing,Guarding, Restlessness,Wincing Pain Management Techniques Distraction,Elevation, Modification of Treatment,Re- positioning,Timing of Activity with Medications M4 PT-IP Mobility and Gait Start: 03/14/22 12:24 Freq: NEEDED Status: Active Protocol: Document 03/17/22 13:20 SP (Rec: 03/17/22 16:39 SP [id number]) PT-Bed Mobility Assessment Rolling Type of Rolling Log Rolling,Roll to Left Level of Assist Standby Assistance Supine to Sit Supine to Sit Standby Assistance,Head of Bed Elevated,Bedrails Sit to Supine Sit to Supine Minimal Assistance,1 Person Assistance,Bedrails Scooting Scooting to Edge of Bed Standby Assistance PT-Transfer Assessment Sit to and From Stand Sit to and from Stand Moderate Assistance,2 Person Assistance,Use of Upper Extremities Equipment Transfer Assistive Device Gait Belt,Front Wheeled Walker Orthotic/Prosthetic Devices or Brace: No Transfers Transfer Destination Bed Transfer Technique Stand Pivot Transfer Ability Level of Assist Moderate Assistance,2 Person Assistance,Use of Upper Extremities Comments Mobility Comments REviewed precautions, with verbalized confirmation. Supine>sit self use bed controls elevated HOB and bed rails and LLE support RLE SBA to EOB. Sit>stand Mod A x2 w/ FWW, cues for NWB RLE, contacts RLE touching L medial foot with good demonstraion precautions. Able to lateral scoot on LLE using FWW Mod A x2 bed to front chair 3 ft but became anxious might not be able to get back out of lower chair so requested return to bed, regardless education have 2- 3 persons to help her, she states does best if able use self strength, notices less pain. Pt same lateral scoot on LLE w/ FWW back to EOB, stood approx 1-2 min. Stand> sit Mod A x1 cued reach back, sit> supine LLE support RLE with Min A for BLE support as pt directed exactly assist direction needed. Pt able to laterals scoot to center self in bed using BUE bed rails and LLE bridging technique. Pt had call light, bed alarmed and all needs in reach. Will continue to assess progress. Gait Assessment Comments Gait Comments see mobility comments, lateral scoot on LLE w/ FWW Mod A x2 bed>front chair and back without seated rest. Stair Climbing Assessment Comments Stair Climbing Comments Unable. Will need to assess 2 steps enter home with R GB into garage, 7+ 7 stairs BHR to get to bedroom for safe DC home when able. PT-Balance Assessment Sitting Balance and Reactions Static Sitting Balance Ability Good Dynamic Sitting Balance Ability Fair Standing Balance and Reactions Static Standing Balance Ability Fair Dynamic Standing Balance Ability Poor Device Used FWW M5 PT-IP Objective Assessments Start: 03/14/22 12:24 Freq: NEEDED Status: Active Protocol: Document 03/14/22 10:07 AB (Rec: 03/14/22 12:53 AB [id number]) Orientation Orientation/Cognition Level of Alertness Alert Orientation Name Language Function Ability No Deficits Noted Safety Awareness Decreased Safety Awareness Memory Description Short Term Impaired Gross Range of Motion Lower Extremity ROM Assessment Right Impaired Impairments increase RLE guarding and pt refused PT to move RLE Strength Comments Strength Comments RLE NT due to pt's refusal Muscle Tone Muscle Tone WNL Yes M6 PT-IP Treatment Start: 03/14/22 12:24 Freq: NEEDED Status: Active Protocol: Document 03/17/22 13:20 SP (Rec: 03/17/22 16:39 SP [id number]) Physical Therapy Treatment Exercises Exercises Ankle Pumps,Gluteal Sets,Quad Sets Education Education Provided Precautions,Weight Bearing Status,Safety M7 PT-IP Assessment and Plan Start: 03/14/22 12:24 Freq: NEEDED Status: Active Protocol: Document 03/17/22 13:20 SP (Rec: 03/17/22 16:39 SP [id number]) PT Summary Assessment and Plan Potential Rehabilitation Potential Fair Status of Condition at Evaluation Evolving Summary Impairments Pain,ROM,Strength,Balance, Coordination,Sensation,Tone, Cognition,Bed Mobility, Transfers,Gait,Activity Tolerance Progress Towards Goals Progressing Toward Goals,Slow Progress due to Activity Tolerance Assessment Summary Pt improved in decreased mobility support Mod A x2 during transfer but unable to fully sit onto chair, anxious will hurt to get back up. Pt does best if discuss plan and premedicate prior to PT arrival. Pt able to maintain precaution and will require SNF for progress in functional mobility. Goals Bed Mobility Goal Moderate Assistance Transfer Goal Moderate Assistance,Front Wheeled Walker Gait Goal Moderate Assistance,Front Wheel Walker Gait Distance 25 Days to Meet Goals 10 Frequency of Treatment Frequency Of Treatment Once a Day Treatment Plan Physical Therapy Treatment Plan Bed Mobility Training,Transfer Training,Gait Training, Therapeutic Exercise,Balance Retraining,Post Op Education, Discharge Planning,Hot or Cold Pack,Neuromuscular Re-ed, Coordination Retraining,Manual Therapy Other Recommendations and Next Treatment Organize pre medicate 1/2 hr Focus before PT, discuss mobility plan for tx for self prepare. LE ex, Bed mob, STS, SPT and progress sit up in chair. 2nd person assist. Precautions Anterior Hip Precautions No Hip Extension,No Hip External Rotation Weight Bearing Status Weight Bearing Status Non-Weight Bearing Allowed Weight Bearing Amount (enter % RLE NWB or #) (%) Recommendations To Nursing Amount of Assist Needed 2 Person Assist Discharge Recommendations PT Discharge Recommendations SNF Rehab Transportation Needs at Discharge Wheelchair/Cabulance,Stretcher /Ambulance
--- NOTE | 2022-03-17 13:55 | OT.IP.TRT ---
Current Diagnoses Hemorrhagic condition, unspecified (03/09/22) Obstructive sleep apnea (adult) (pediatric) (03/09/22) Other acute postprocedural pain (03/09/22) Essential (primary) hypertension (03/09/22) Unspecified osteoarthritis, unspecified site (03/09/22) Pain in unspecified hip (03/09/22) Dorsalgia, unspecified (03/09/22) Spontaneous ecchymoses (03/09/22) Unspecified fracture of right acetabulum, initial encounter for closed fracture (03/09/22) Contusion of right hip, initial encounter (03/09/22) Presence of right artificial hip joint (03/09/22) Other specified postprocedural states (03/09/22) Surgery Performed Operation Date: 03/13/22 14:15 Actual Procedures p Right hip irrigation and debridement, removal of JENNIE, placement of spacer(Right) - Pat Hernandes MD Occupational Therapy Treatment Note M2 OT-IP Current Condition Start: 03/15/22 12:25 Freq: Status: Active Protocol: Document 03/15/22 12:26 CGR (Rec: 03/15/22 12:57 CGR [id number]) Occupational Therapy Current Condition Current Condition Evaluation Date 03/15/22 Treatment Diagnosis 03/13 I&D and removal of total R hip and placement of spacer Diagnosis Onset Date 03/10/22 Weight Bearing Status Weight Bearing Status Non-Weight Bearing M3 OT- IP Subjective and Pain Start: 03/15/22 12:25 Freq: Status: Active Protocol: Document 03/17/22 14:45 CGR (Rec: 03/17/22 14:51 CGR [id number]) OT- Subjective Occupational Therapy Visit Type Type Progress Note Visit Start Time 13:20 Visit Stop Time 13:55 Total Visit Minutes 35 OT Pain Assessment Pain When Pain Assessed During Mobility Pain Present Pain Present Pain Reported Location Right Hip Intensity 5 Scale Used Numeric (0 - 10) Management Techniques Distraction,Modification of Treatment,Re-positioning, Timing of Activity with Medications M4 OT- IP ADL's Start: 03/15/22 12:25 Freq: Status: Active Protocol: Document 03/17/22 14:45 CGR (Rec: 03/17/22 14:51 CGR [id number]) OT [id number] Comments OT Self-Feeding Comments not meal time OT ADL-Grooming General Evaluation Grooming Ability Standby Assistance Areas Needing Assistance Face Washing OT ADL-Oral Care Comments Oral Care Comments not performed OT ADL-Dressing General Eval Lower Body Dressing Ability Total Assistance Areas Needing Assistance Socks OT ADL-Toileting General Evaluation Toileting Ability Total Assistance Comments OT Toileting Comments pt with rodriguez OT ADL-Bathing Comments OT Bathing Comments not performed M5 OT- IP IADL's Start: 03/15/22 12:25 Freq: Status: Active Protocol: Document 03/15/22 12:26 CGR (Rec: 03/15/22 12:57 CGR [id number]) OT-Instrumental Activities of Daily Living Deficits IADL Deficits Identified No Deficits Home Safety Awareness Awareness of Need for Assistance at Home Good Awareness Ability to Problem Solve Emergency Able to Problem Solve Situations Medication Management Medication Management No Deficits Identified Money Management Money Management No Deficits Identified Meal Preparation Meal Preparation Comments Concerns regarding pt's ability to perform Email Marketing Coordinator Email Marketing Coordinator Caregiver Provides Assist M6 OT- IP Functional Cognition Start: 03/15/22 12:25 Freq: Status: Active Protocol: Document 03/15/22 12:26 CGR (Rec: 03/15/22 12:57 CGR [id number]) Cognitive Factors Limiting Selfcare Function Cognitive Ability Level of Alertness Alert Patient Orientation Name,Age,Birthday,Month,Date, Year,Day of Week,Place, Situation Attention Span Ability Capable of Focused Attention, Capable of Sustained Attention Ability to Follow Commands Able to Follow Multi-Step Commands OT- Vision and Hearing OT- Hearing Assessment OT- Hearing Assessment WFL OT- Vision Assessment Visual Acuity Glasses All The Time,Glasses For Reading Visual Attentiveness WFL Occular Pursuits WFL Visual Convergence WFL M7 OT- IP Mobility and Balance Start: 03/15/22 12:25 Freq: Status: Active Protocol: Document 03/17/22 14:45 CGR (Rec: 03/17/22 14:51 CGR [id number]) OT- Bed Mobility Assessment Rolling Type of Rolling Roll to Left Level of Assistance Standby Assistance,Head of Bed Elevated Supine to Sit Supine to Sit Assist Standby Assistance,Head of Bed Elevated Scooting Scooting to Edge of Bed Standby Assistance,Head of Bed Elevated,Bedrails OT-Transfer Assessment Sit to and From Stand Sit to and from Stand Moderate Assistance,1 Person Assistance,2 Person Assistance Transfers Transfer Ability Moderate Assistance,1 Person Assistance,2 Person Assistance Technique Transfer Destination Bed,Chair Transfer Technique Stand Pivot Devices Transfer Assistive Devices Gait Belt,Front Wheeled Walker Comments Mobility Comments Performed sit to stand with mod x 1 and second person for safety. Attempted transfer to chair and pt was able to pivot on her L foot for the transfer but then became anxious and requested to return to bed. Pt was able to pivot back and return to bed. OT- Balance Assessment Sitting Balance and Reactions Static Sitting Balance Ability Good Dynamic Sitting Balance Ability Fair M8 OT- IP Objective Assessments Start: 03/15/22 12:25 Freq: Status: Active Protocol: Document 03/15/22 12:26 CGR (Rec: 03/15/22 12:57 CGR [id number]) OT Gross Range of Motion Upper Extremity Range of Motion Assessment Within Functional Limits OT Strength Upper Extremity Strength Assessment Within Functional Limits Comments Strength Comments grossly 4 to 4+/5 OT- Coordination Assessment Upper Extremity Finger to Nose Test Within Functional Limits Finger Tapping Test Within Functional Limits OT-Muscle Tone Assessment Muscle Tone WNL Yes OT Sensation Assessment Comments Summary Comments Pt states her baseline is numbness and tingling to the middle of the forearm distal on BUE Edema Edema Absent M9 OT- IP Assessment and Plan Start: 03/15/22 12:25 Freq: Status: Active Protocol: Document 03/17/22 14:45 CGR (Rec: 03/17/22 14:51 CGR [id number]) OT Summary Assessment and Plan Potential Rehabilitation Potential Fair Analytic Complexity at Evaluation Moderate Summary OT Impairments Pain,Balance,Sensation, Functional Mobility,Self- Feeding,Grooming,Dressing, Toileting,Bathing,Toilet Transfers,Shower Transfers, Activity Tolerance Progress Towards Goals Slow Progress due to Pain Assessment Summary Pt presents as a moderate complexity evaluation s/p admit for 03/13/22 I&D and removal of the R JENNIE with placement of a spacer. Pt did well on this date with pain medication given ~30 prior to session. Pt was able to get herself to the side of the bed with SBA and extra time using the rails and HOB up. Pt then needed mod a for sit to stand from the bed but became anxious with the idea of having to sit down in the low chair. Pt returned to bed and end of session. Goals Grooming Goal Independent Dressing Goal Independent,Retail Field Representative,Sock Aid Toileting Goal Minimal Assistance Bathing Goal Minimal Assistance Toilet Transfer Goal Moderate Assistance,Bedside Commode Days to Meet Goals 30 Frequency of Treatment Frequency Of Treatment Once a Day Treatment Plan OT Treatment Plan ADL Training,Functional Mobility,Patient/Family Education,Discharge Planning Other Treatment Recommendations and Next co-treat with p.t. for all Treatment Focus mobility Discharge Recommendations OT Discharge Recommendations SNF Rehab Transportation Needs at Discharge Wheelchair/Cabulance,Stretcher /Ambulance
[2022-03-17 15:46] LABS: Add Manual Diff / Slide Review NO; Basophils Absolute Auto 0 /uL (0-100); Basophils Percent Auto 0.2 % (0-2); Eosinophils Absolute Auto 300 /uL (0-450); Eosinophils Percent Auto 2.8 % (2-4); Hematocrit 23.1 % (36-46); Hemoglobin 7.7 g/dL (12.0-16.0); Lymphocytes Absolute Auto 500 /uL (1100-4500); Lymphocytes Percent Auto 5.2 % (25-40); Mean Corpuscular HGB Conc 33.1 % (30-36); Mean Corpuscular Hemoglobin 33.8 PG (26-34); Monocytes Absolute Auto 600 /uL (0-900); Monocytes Percent Auto 5.8 % (3-14); Neutrophils Absolute Auto 8500 /uL (1500-7000); Platelet Count 288 X10^3/uL (150-400); Red Blood Cell Count 2.26 X10^6/uL (4.0-5.2); Red Cell Distribution Width 17.9 % (11.6-14.8); White Blood Cell Count 9.9 X10^3/uL (4.5-11.0)
[2022-03-17 19:30] VITALS: BP 149/76; PULSE 80; RESP 18; TEMP 36.2; O2SAT 99
[2022-03-17] MEDS: NYSTATIN POWDER 15GM 1 APPLIC TOP (21:19)
[2022-03-18] VITALS (8 sets, daily range): BP systolic 140–163; BP diastolic 85–103; PULSE 79–88; RESP 16–18; TEMP 36.2–36.7; O2SAT 96–99
[2022-03-18] MEDS: ACETAMINOPHEN 325 MG TABLET 650 MG PO ×4 (00:17→20:28)
[2022-03-18] MEDS: IBUPROFEN 400 MG TABLET PO ×3 (00:18→13:16)
--- NOTE | 2022-03-18 07:37 | CM.DPC ---
Addendum entered by Luz Maria Francois R.N. 03/18/22 15:00: Confirmed that hospitalist will need to do orders, but patient just completed her transfusion, and is undetermined if she will need additional units. Went ahead and called [facility], and will have patient discharge tomorrow. [facility], and set up transport for 10:00am tomorrow. Have updated patient. Will have to have hospitalist complete orders prior. Have already faxed over [facility]SR to [facility]. Patient is aware of pecan picker time of tomorrow, she will want to go over her discharge orders with the hospitalist. At this time, plan is [facility] tomorrow with pecan picker at 10:00, and patient is updated. Addendum entered by Luz Maria Francois R.N. 03/18/22 11:37: Spoke to Margie at [facility], they indicated, they can take patient today. They wanted he social security number which is: [phone]. They also wanted CPAP settings, patient has not used here in the hospital, asked patient about it, stated, I don't know the numbers, it was remotely through [facility]. She is aware that [facility] can accept. They can take as late as 1700. Mentioned this to hospitalist, she wants ortho to do the orders. Left a message with CHANDNI Mccollum, there have been no notes from today as of yet. She will go BLS. Let Magalys at [facility] know that she would be updated. Addendum entered by Luz Maria Francois R.N. 03/18/22 09:21: Meredith from [facility] called back and confirmed acceptance. They are working on insurance auth. Addendum entered by Luz Maria Francois R.N. 03/18/22 09:11: Spoke to Magalys, referral is coming through for patient now. She stated that she did speak to son yesterday. Let her know that patient will be a BLS transport as well. Will touch base again with her later today. She indicated that auth can take from a couple hours, to a day. Confirmed with nurse today that patient is getting some blood. Original Note: DCP Cont: Spoke to patient's son, Trevin. He had been down to [facility] at [place], and he and patient are ok with going to [facility]. Asked him if patient was accepted, and stated, they would take her. They will need to get insurance auth through [place]. Left a message with [facility], and having [facility] fax over clinicals. P: DCP to work on getting patient to [facility], pending insurance auth. Will follow up with them today. Luz Maria Francois RN/Dye Automation Operator
--- NOTE | 2022-03-18 08:32 | CM.DPNOTE ---
Faxed referral to [facility]. [facility] Doe, ASHLEY assist.
[2022-03-18] MEDS: CYANOCOBALAMIN 1,000 MCG/ML VIAL 1000 MCG IM (09:48)
[2022-03-18] MEDS: PREGABALIN 75 MG CAPSULE 150 MG PO ×2 (09:49→20:28)
[2022-03-18] MEDS: DULOXETINE 30 MG CAPSULE 60 MG PO (09:49)
[2022-03-18] MEDS: NYSTATIN POWDER 15GM 1 APPLIC TOP ×2 (09:49→20:52)
[2022-03-18] MEDS: buPROPion SR 150 MG TAB PO ×2 (09:49→20:28)
[2022-03-18] MEDS: MELOXICAM 7.5 MG TABLET 15 MG PO (09:49)
[2022-03-18] MEDS: VANCOMYCIN 1,250 MG/250 ML PIGGYBACK 250 MG IV ×2 (09:50→20:28)
[2022-03-18] MEDS: DOXYCYCLINE HYCLATE 100 MG TABLET PO (09:50)
--- NOTE | 2022-03-18 13:10 | PT.IPTN ---
Current Diagnoses Hemorrhagic condition, unspecified (03/09/22) Obstructive sleep apnea (adult) (pediatric) (03/09/22) Other acute postprocedural pain (03/09/22) Essential (primary) hypertension (03/09/22) Unspecified osteoarthritis, unspecified site (03/09/22) Pain in unspecified hip (03/09/22) Dorsalgia, unspecified (03/09/22) Spontaneous ecchymoses (03/09/22) Unspecified fracture of right acetabulum, initial encounter for closed fracture (03/09/22) Contusion of right hip, initial encounter (03/09/22) Presence of right artificial hip joint (03/09/22) Other specified postprocedural states (03/09/22) Surgery Performed Operation Date: 03/13/22 14:15 Actual Procedures p Right hip irrigation and debridement, removal of JENNIE, placement of spacer(Right) - Pat Hernandes MD Physical Therapy Treatment Note M2 PT-IP Current Condition Start: 03/14/22 12:24 Freq: NEEDED Status: Active Protocol: Document 03/17/22 13:20 SP (Rec: 03/17/22 16:39 SP [id number]) Physical Therapy Current Condition Current Condition Evaluation Date 03/14/22 Treatment Diagnosis R acetabular fx; R hip hematoma s/p I&D & spacer placement; diff in walking Onset Date 03/09/22 M3 PT-IP Subjective Start: 03/14/22 12:24 Freq: NEEDED Status: Active Protocol: Document 03/18/22 12:50 KS (Rec: 03/18/22 13:19 KS [id number]) Subjective Physical Therapy Visit Type Type Treatment Note Visit Start Time 12:50 Visit Stop Time 13:10 Total Visit Minutes 20 Notes Pt receiving transfusion, okay to do exercises in bed. Number of ENGINEERING OPERATOR Visits 3 Therapy Pain Assessment Pain When Pain Assessed During Mobility Pain Present Pain Present Pain Reported M4 PT-IP Mobility and Gait Start: 03/14/22 12:24 Freq: NEEDED Status: Active Protocol: Document 03/18/22 12:50 KS (Rec: 03/18/22 13:19 KS [id number]) PT-Transfer Assessment Comments Mobility Comments Pt w/ low H&H and receiving transfusion so no OOB mobility , but agreeable to exercises in bed. Pt performed 2x10 bilateral ankle pumps, quad sets, glute sets and 1x10 bilateral heel slides and SLR. Pt left in bed w/ all needs in reach. Gait Assessment Comments Gait Comments Unable M5 PT-IP Objective Assessments Start: 03/14/22 12:24 Freq: NEEDED Status: Active Protocol: Document 03/14/22 10:07 AB (Rec: 03/14/22 12:53 AB [id number]) Orientation Orientation/Cognition Level of Alertness Alert Orientation Name Language Function Ability No Deficits Noted Safety Awareness Decreased Safety Awareness Memory Description Short Term Impaired Gross Range of Motion Lower Extremity ROM Assessment Right Impaired Impairments increase RLE guarding and pt refused PT to move RLE Strength Comments Strength Comments RLE NT due to pt's refusal Muscle Tone Muscle Tone WNL Yes M6 PT-IP Treatment Start: 03/14/22 12:24 Freq: NEEDED Status: Active Protocol: Document 03/18/22 12:50 KS (Rec: 03/18/22 13:19 KS [id number]) Physical Therapy Treatment Exercises Exercises Ankle Pumps,Gluteal Sets,Quad Sets,Heel Slides,Straight Leg Raises Education Education Provided Precautions,Safety M7 PT-IP Assessment and Plan Start: 03/14/22 12:24 Freq: NEEDED Status: Active Protocol: Document 03/18/22 12:50 KS (Rec: 03/18/22 13:19 KS [id number]) PT Summary Assessment and Plan Potential Rehabilitation Potential Fair Status of Condition at Evaluation Evolving Summary Impairments Pain,ROM,Strength,Balance, Coordination,Sensation,Tone, Cognition,Bed Mobility, Transfers,Gait,Activity Tolerance Progress Towards Goals Progressing Toward Goals,Slow Progress due to Activity Tolerance Assessment Summary Unable to progress out of bed mobility today due to pt receiving blood transfusion, but pt able to complete bilateral LE exercises to promote blood flow and strengthening and agreeable to completing on her own in bed. Pt showing improvmement w/ R leg strength during exercises and tolerance. She will benefit from SNF to improve strength and functional mobility independence. Goals Bed Mobility Goal Moderate Assistance Transfer Goal Moderate Assistance,Front Wheeled Walker Gait Goal Moderate Assistance,Front Wheel Walker Gait Distance 25 Days to Meet Goals 10 Frequency of Treatment Frequency Of Treatment Once a Day Treatment Plan Physical Therapy Treatment Plan Bed Mobility Training,Transfer Training,Gait Training, Therapeutic Exercise,Balance Retraining,Post Op Education, Discharge Planning,Hot or Cold Pack,Neuromuscular Re-ed, Coordination Retraining,Manual Therapy Other Recommendations and Next Treatment Organize pre medicate 1/2 hr Focus before PT, discuss mobility plan for tx for self prepare. LE ex, Bed mob, STS, SPT and progress sit up in chair. 2nd person assist. Precautions Anterior Hip Precautions No Hip Extension,No Hip External Rotation Weight Bearing Status Weight Bearing Status Non-Weight Bearing Allowed Weight Bearing Amount (enter % RLE NWB or #) (%) Recommendations To Nursing Amount of Assist Needed 2 Person Assist Discharge Recommendations PT Discharge Recommendations SNF Rehab Transportation Needs at Discharge Wheelchair/Cabulance,Stretcher /Ambulance
--- NOTE | 2022-03-18 13:22 | OT.IPNOTE ---
Pt getting a transfusion and to be discharged to SNF later. Able to talk to pt regarding OT goals, no charge.
--- NOTE | 2022-03-18 14:16 | PM.PN.1 ---
Subjective Subjective Interval history: c/o pain and weakness Exam Vital Signs (past 8 hours): - 03/18/22 08:06 03/18/22 11:25 03/18/22 11:46 Temperature 97.2 F L 97.3 F L 97.6 F Pulse Rate 79 88 84 Respiratory Rate 16 17 18 Blood Pressure 163/87 H 151/96 H 155/103 H Pulse Oximetry 98 Oxygen Flow Rate 0 03/18/22 11:52 Temperature 97.6 F Pulse Rate 84 Respiratory Rate 18 Blood Pressure 155/103 H Pulse Oximetry 96 Oxygen Flow Rate 0 Oxygen Delivery Method Room Air Oxygen Flow Rate 0 Const General: cooperative and well developed Orientation: alert, awake and oriented x3 HENMT Head: normal to inspection Ears: external ears normal Mouth: oral mucosae normal Eyes Pupils: PERRL EOM: EOM intact bilaterally Neck Neck: normal visual inspection and full ROM Resp Effort & Inspection: normal respiratory effort Auscultation: clear to auscultation bilaterally Cardio Rate: regular rate Rhythm: regular rhythm GI Palpation: soft and no hepatosplenomegaly Auscultation: normal bowel sounds Skin General: no rashes or lesions noted Neuro General: patient alert, patient awake, patient oriented x3, moves all extremities and no focal motor deficits Speech: speech normal Extrem General: normal to inspection, full ROM and no pedal edema Psych Appearance: grossly normal Objective Labs Result Diagrams: 03/17/22 15:30 03/17/22 08:30 Labs: Laboratory Results - last 24 hr 03/17/22 03/18/22 15:30 08:30 WBC 9.9 RBC 2.26 L Hgb 7.7 L Hct 23.1 L MCV 102.0 H MCH 33.8 MCHC 33.1 RDW 17.9 H Plt Count 288 Neut % (Auto) 86.0 H Lymph % (Auto) 5.2 L [place] % (Auto) 5.8 Eos % (Auto) 2.8 Baso % (Auto) 0.2 Neut # (Auto) 8500 H Lymph # (Auto) 500 L [place] # (Auto) 600 Eos # (Auto) 300 Baso # (Auto) 0 Blood Type O Negative Antibody Screen Negative Crossmatch See Detail [facility] Medical History Actinic keratoses ADHD Arthritis B12 deficiency Back pain with history of spinal surgery BCC (basal cell carcinoma) Bleeding diathesis Cervical spondylosis Chronic pain DDD (degenerative disc disease) Depression Gastric ulcer (02/17/20) History of Mohs micrographic surgery for skin cancer HTN (hypertension) Hypersomnia Iron deficiency anemia Neurogenic claudication LEO (obstructive sleep apnea) Osteoarthritis Osteoporosis Psoriasis Psoriatic arthritis RBBB (right bundle branch block) RLS (restless legs syndrome) Rosacea SCC (squamous cell carcinoma) Scoliosis Sicca syndrome Spinal stenosis Spontaneous bruising Surgical History History of carpal tunnel surgery of left wrist History of carpal tunnel surgery of right wrist History of gastric bypass (~2004) History of hysterectomy (1995) History of reverse total replacement of right shoulder joint History of spinal fusion Hx of arthroscopy of left knee Hx of arthroscopy of right knee Hx of cholecystectomy Hx of toe surgery Social History household members: none Smoking Status: Never smoker alcohol intake: current substance use type: does not use Assessment & Plan Assessment & Plan narrative: Hip fracture , s/p R total hip arthroplasty ?- continue pain management - ortho team increased pain meds doses - continue close monitoring - continue PT/OT? ? Postoperative abscess ? - cx with MRSA ? - continue IV vanco ? - needs 6 weeks of abx ? - s/p removal infected hardware - needs f/u with ID ?Anemia of chronic disease ?- CBC pending ? ADHD ?- continue adderall ? Depression ?- continue bupropion Opioids dependant requesting to increase her opioids for pain and c/o pain ?DVT prophylaxis: SCD ?Code status: Full ?POA -? son disposition: pending for SNF placement discussed in detaisl with ortho team, pt and rn Time Spent With Patient Critical Care time: I spent a total of [] minutes of critical care time on this patient's care today; this time is exclusive of procedural time. Quality VTE Deep Vein Thrombosis/Pulmonary Embolism Present on Admission: No
--- NOTE | 2022-03-18 14:41 | PM.PNPO.1 ---
Subjective Subjective Date Patient Seen: 03/18/22 Time Patient Seen: 07:35 Interval history: Patient states her pain is currently well controlled. No fever or chills. No nausea vomiting. Exam Vital Signs (past 8 hours): - 03/18/22 08:06 03/18/22 11:25 03/18/22 11:46 Temperature 97.2 F L 97.3 F L 97.6 F Pulse Rate 79 88 84 Respiratory Rate 16 17 18 Blood Pressure 163/87 H 151/96 H 155/103 H Pulse Oximetry 98 Oxygen Flow Rate 0 03/18/22 11:52 Temperature 97.6 F Pulse Rate 84 Respiratory Rate 18 Blood Pressure 155/103 H Pulse Oximetry 96 Oxygen Flow Rate 0 Oxygen Delivery Method Room Air Oxygen Flow Rate 0 Narrative Exam Narrative: Pleasant 72-year-old female resting comfortably in no apparent distress. Motor functions intact bilateral lower extremities. Sensation grossly intact to light touch bilateral lower extremities. Hillary dressing is on and functioning. Objective Labs Result Diagrams: 03/17/22 15:30 03/17/22 08:30 Labs: Laboratory Results - last 24 hr 03/17/22 03/18/22 15:30 08:30 WBC 9.9 RBC 2.26 L Hgb 7.7 L Hct 23.1 L MCV 102.0 H MCH 33.8 MCHC 33.1 RDW 17.9 H Plt Count 288 Neut % (Auto) 86.0 H Lymph % (Auto) 5.2 L [place] % (Auto) 5.8 Eos % (Auto) 2.8 Baso % (Auto) 0.2 Neut # (Auto) 8500 H Lymph # (Auto) 500 L [place] # (Auto) 600 Eos # (Auto) 300 Baso # (Auto) 0 Blood Type O Negative Antibody Screen Negative Crossmatch See Detail [facility] Medical History Actinic keratoses ADHD Arthritis B12 deficiency Back pain with history of spinal surgery BCC (basal cell carcinoma) Bleeding diathesis Cervical spondylosis Chronic pain DDD (degenerative disc disease) Depression Gastric ulcer (02/17/20) History of Mohs micrographic surgery for skin cancer HTN (hypertension) Hypersomnia Iron deficiency anemia Neurogenic claudication LEO (obstructive sleep apnea) Osteoarthritis Osteoporosis Psoriasis Psoriatic arthritis RBBB (right bundle branch block) RLS (restless legs syndrome) Rosacea SCC (squamous cell carcinoma) Scoliosis Sicca syndrome Spinal stenosis Spontaneous bruising Surgical History History of carpal tunnel surgery of left wrist History of carpal tunnel surgery of right wrist History of gastric bypass (~2004) History of hysterectomy (1995) History of reverse total replacement of right shoulder joint History of spinal fusion Hx of arthroscopy of left knee Hx of arthroscopy of right knee Hx of cholecystectomy Hx of toe surgery Social History household members: none Smoking Status: Never smoker alcohol intake: current substance use type: does not use Assessment & Plan Post-op Postoperative Procedures: Procedures Operation Date: 03/13/22 14:15 Actual Procedure Side Surgeon p Right hip irrigation and debridement, removal of JENNIE, placement of spacer Right Pat Hernandes MD Postoperative status: doing well Postoperative status narrative: Patient progressing as expected status post right total hip irrigation and debridement and removal of total hip and placement of antibiotic spacer femoral replacement March 13, 2022 Postoperative plan narrative: Nonweightbearing on the right lower extremity. Okay to transfer out of bed. IV antibiotics for 6 weeks. Multimodal pain management Hospitalist assisting in managing her anemia of chronic disease, ADHD, depression. Patient will need assisted facility placement. [employer] send referral to [facility] this morning and is waiting for response. Quality VTE Deep Vein Thrombosis/Pulmonary Embolism Present on Admission: No
[2022-03-18 16:58] LABS: Add Manual Diff / Slide Review NO; Basophils Absolute Auto 100 /uL (0-100); Basophils Percent Auto 0.7 % (0-2); Eosinophils Absolute Auto 200 /uL (0-450); Eosinophils Percent Auto 2.3 % (2-4); Hematocrit 28.5 % (36-46); Hemoglobin 9.7 g/dL (12.0-16.0); Lymphocytes Absolute Auto 900 /uL (1100-4500); Lymphocytes Percent Auto 8.6 % (25-40); Mean Corpuscular HGB Conc 33.9 % (30-36); Mean Corpuscular Hemoglobin 32.7 PG (26-34); Mean Corpuscular Volume 96.3 fL (80-100); Monocytes Absolute Auto 700 /uL (0-900); Neutrophils Absolute Auto 8100 /uL (1500-7000); Neutrophils Percent Auto 81.4 % (50-75); Platelet Count 336 X10^3/uL (150-400); Red Blood Cell Count 2.95 X10^6/uL (4.0-5.2); Red Cell Distribution Width 20.5 % (11.6-14.8)
[2022-03-18 17:12] LABS: Erythrocyte Sedimentation Rate 66 MM/HR (0-20)
[2022-03-18 17:37] LABS: Alanine Aminotransferase 26 IU/L (<35); Albumin 3.1 g/dL (3.5-5.0); Albumin Globulin Ratio 1.1 (1.0-2.8); Alkaline Phosphatase 139 U/L (38-126); Aspartate Aminotransferase 38 IU/L (14-36); BUN Creatinine Ratio 9.1 (6-22); Bilirubin Total 0.4 mg/dL (0.2-1.3); Blood Urea Nitrogen 4 mg/dL (7-17); C-Reactive Protein Quant 7.9 mg/dL (<1.0); Calcium 8.8 mg/dL (8.4-10.2); Carbon Dioxide 25 mmol/L (22-32); Chloride 110 mmol/L (98-107); Estimated Glomerular Filt Rate > 60 mL/min (>60); Globulin 2.8 g/dL (1.7-4.1); Glucose 101 mg/dL (80-110); HEMOLYSIS < 15 (0-50); Sodium 140 mmol/L (137-145); Total Protein 5.9 g/dL (6.3-8.2)
[2022-03-18 18:58] LABS: Anisocytosis 1+
[2022-03-18] MEDS: OXYCODONE IR 5 MG TABLET 20 MG PO (20:27)
[2022-03-19] VITALS: BP 153/83; PULSE 85; RESP 18; TEMP 36.1; O2SAT 95
[2022-03-19 04:30] VITALS: BP 186/92; PULSE 79; RESP 18; TEMP 36.4; O2SAT 99
[2022-03-19] MEDS: DULOXETINE 30 MG CAPSULE 60 MG PO (08:26)
[2022-03-19] MEDS: buPROPion SR 150 MG TAB PO (08:26)
[2022-03-19] MEDS: MELOXICAM 7.5 MG TABLET 15 MG PO (08:26)
[2022-03-19] MEDS: PREGABALIN 75 MG CAPSULE 150 MG PO (08:26)
[2022-03-19] MEDS: DOXYCYCLINE HYCLATE 100 MG TABLET PO (08:26)
[2022-03-19] MEDS: VANCOMYCIN 1,250 MG/250 ML PIGGYBACK 250 MG IV (08:27)
[2022-03-19] MEDS: NYSTATIN POWDER 15GM 1 APPLIC TOP (08:27)
[2022-03-19 09:00] VITALS: BP 181/90; PULSE 103; RESP 19; TEMP 36.4; O2SAT 100
[2022-03-19 09:19] LABS: COVID19 -Nasal RAPID Negative (Negative)
[2022-03-19] MEDS: POTASSIUM CHLORIDE 20 MEQ TAB 40 MEQ PO (09:49)
[2022-03-19] MEDS: OXYCODONE IR 5 MG TABLET 20 MG PO (09:52)
--- NOTE | 2022-03-19 10:09 | PM.DS.1 ---
History of Present Illness History of Present Illness Date Patient Seen: 03/10/22 Time Patient Seen: 19:30 Chief complaint: Emergency admit Narrative: Per admitting provider: This is a 72-year-old extremely complicated female with a history of a very extensive spine surgery with extensive fusion from the sacrum to her upper thoracic spine and known osteoporosis. She also has a history of a bleeding disorder. 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 She previously underwent a right total hip arthroplasty through an anterior approach. She was seen in the postoperative period and noted to have findings consistent with a possible wound hematoma or seroma. Last week she was getting up from a chair when she noticed some increased right hip pain. She notes that her right hip pain as progressive the gotten worse. She was seen last week and had an x-ray which did not show evidence of a significant abnormality. She then had marked worsening and severe pain and was transported to [facility]. She had a CT scan which showed evidence of an acetabular fracture and a right hip fluid collection and hematoma possible infection. She then returned on hospital for treatment. She denies a history of significant wound drainage. She has really not had fevers or chills at home. Her temperature was reportedly about 99 at [place]. She does say that she has been having severe pain overnight. Discharge Providers Provider Date of admission: 03/09/22 22:24 Discharge Date: 03/19/22 Primary care physician: Garima Lanier MD Consults: 03/10/22 12:42 Consult to Orthopedic Surgery Routine Comment: Consulting Provider: Pat Hernandes Reason for consultation: orthopedic consultation, post operative complication 03/13/22 07:25 Consult to Anesthesiology Routine Comment: Consulting Provider: Anesthesiologist Reason for consultation: Regional block for post operative pain control 03/13/22 20:07 Consult to Discharge Planning Routine Comment: Consult to Physical Therapy Evaluate & Treat Comment: Physician Instructions: post op JENNIE protocol Consult to Respiratory Therapy Evaluate & Treat Comment: Physician Instructions: Evaluate and treat 03/14/22 12:12 Consult to Occupational Therapy Evaluate & Treat Comment: Physician Instructions: Evaluate and treat Discharge provider: Lisandro Holliday MD Summary Hospital Course Discharge Diagnosis: 1. Hip fracture , s/p R total hip arthroplasty 2. ? Postoperative abscess 3. ?Anemia of chronic disease 4.? ADHD 5.? Depression 6. Opioid dependent Hospital Course: Ms. Merino came in with right hip pain and swelling after a previous right hip arthroplasty on February 04. She was found to have a right hip infection with MRSA. She was started on IV antibiotics and underwent surgery on 03/13. She should have six weeks of IV vancomycin with first date being 03/14, this would be through 04/25/22. She should be referred to ID clinic for follow up, at [facility]. She is nonweightbearing on her right hip and she should follow up with orthopedic surgery within two weeks. She did need a transfusion of blood while in the hospital due to anemia after her surgery. She was discharged with a hemoglobin of 9.7, which may be her baseline. She was discharged to snf. Exam Vital Signs (past 8 hours): - 03/19/22 04:30 03/19/22 09:00 Temperature 97.6 F 97.5 F L Pulse Rate 79 103 H Respiratory Rate 18 19 Blood Pressure 186/92 H 181/90 H Pulse Oximetry 99 100 Oxygen Flow Rate 0 0 Oxygen Delivery Method Room Air Oxygen Flow Rate 0 Narrative Exam Narrative: GEN: no acute distress PULM: work of breathing normal EXT: wound clean dry and intact Objective Labs Result Diagrams: 03/18/22 16:55 03/18/22 16:55 Labs: Laboratory Results - last 24 hr 03/18/22 03/18/22 03/18/22 08:30 16:55 16:55 WBC 10.0 RBC 2.95 L Hgb 9.7 L Hct 28.5 L MCV 96.3 D MCH 32.7 MCHC 33.9 RDW 20.5 H Plt Count 336 Neut % (Auto) 81.4 H Lymph % (Auto) 8.6 L [place] % (Auto) 7.0 Eos % (Auto) 2.3 Baso % (Auto) 0.7 Neut # (Auto) 8100 H Lymph # (Auto) 900 L [place] # (Auto) 700 Eos # (Auto) 200 Baso # (Auto) 100 RBC Morphology See below Anisocytosis 1+ H ESR 66 H Sodium 140 Potassium 3.0 L Chloride 110 H Carbon Dioxide 25 BUN 4 L Creatinine 0.44 L Estimated GFR > 60 BUN/Creatinine Ratio 9.1 Glucose 101 Calcium 8.8 Total Bilirubin 0.4 AST 38 H ALT 26 Alkaline Phosphatase 139 H C-Reactive Protein 7.9 H Total Protein 5.9 L Albumin 3.1 L Globulin 2.8 Albumin/Globulin Ratio 1.1 SARS-CoV-2 (PCR) Blood Type O Negative Antibody Screen Negative Crossmatch See Detail 03/19/22 08:41 WBC RBC Hgb Hct MCV MCH MCHC RDW Plt Count Neut % (Auto) Lymph % (Auto) [place] % (Auto) Eos % (Auto) Baso % (Auto) Neut # (Auto) Lymph # (Auto) [place] # (Auto) Eos # (Auto) Baso # (Auto) RBC Morphology Anisocytosis ESR Sodium Potassium Chloride Carbon Dioxide BUN Creatinine Estimated GFR BUN/Creatinine Ratio Glucose Calcium Total Bilirubin AST ALT Alkaline Phosphatase C-Reactive Protein Total Protein Albumin Globulin Albumin/Globulin Ratio SARS-CoV-2 (PCR) Negative Blood Type Antibody Screen Crossmatch [facility] Medical History Actinic keratoses ADHD Arthritis B12 deficiency Back pain with history of spinal surgery BCC (basal cell carcinoma) Bleeding diathesis Cervical spondylosis Chronic pain DDD (degenerative disc disease) Depression Gastric ulcer (02/17/20) History of Mohs micrographic surgery for skin cancer HTN (hypertension) Hypersomnia Iron deficiency anemia Neurogenic claudication LEO (obstructive sleep apnea) Osteoarthritis Osteoporosis Psoriasis Psoriatic arthritis RBBB (right bundle branch block) RLS (restless legs syndrome) Rosacea SCC (squamous cell carcinoma) Scoliosis Sicca syndrome Spinal stenosis Spontaneous bruising Surgical History History of carpal tunnel surgery of left wrist History of carpal tunnel surgery of right wrist History of gastric bypass (~2004) History of hysterectomy (1995) History of reverse total replacement of right shoulder joint History of spinal fusion Hx of arthroscopy of left knee Hx of arthroscopy of right knee Hx of cholecystectomy Hx of toe surgery Social History household members: none Smoking Status: Never smoker alcohol intake: current substance use type: does not use Discharge Plan Discharge Plan Patient Disposition: SNF Transfer to: [facility] Discharge orders & Medications Prescriptions: New acetaminophen 325 mg Tablet 650 mg PO Q6HR Qty: 60 0RF ibuprofen 400 mg Tablet 400 mg PO Q6HR Qty: 60 0RF polyethylene glycol 3350 17 gram Powder In Packet 17 g PO DAILY PRN (Reason: Constipation) Qty: 30 0RF vancomycin-water inject (PEG) 1.25 gram/250 mL Piggyback 1,250 mg IV Q12HR@0900,2100 42 Days Qty: 1500 0RF Rx Instructions: Per pharmacy hydromorphone [Dilaudid] 2 mg tablet 2 mg PO Q6H PRN (Reason: pain (scale score 7-10)) Qty: 60 0RF Rx Instructions: 2 mg q.6 hours as needed for breakthrough pain hydromorphone 2 mg Tablet 2 mg PO Q3H PRN (Reason: Pain, Severe (7-10)) Qty: 60 0RF Rx Instructions: 2 mg every 3 hours as needed for breakthrough pain oxycodone 5 mg tablet 20 mg PO Q3H PRN (Reason: pain (scale score 4-6)) Qty: 120 0RF Continued bupropion HCl 150 mg Tablet Sustained-Release 12 Hr 150 mg PO BID doxycycline hyclate 100 mg Capsule 100 mg PO DAILY meloxicam 15 mg Tablet 15 mg PO DAILY dextroamphetamine-amphetamine [Adderall] 10 mg Tablet 10 mg PO BID Rx Instructions: administer doses at least 4-6 hours apart metoprolol succinate 100 mg Tablet Extended Release 24 Hr 100 mg PO DAILY pantoprazole 40 mg Tablet,Delayed Release (Dr/Ec) 40 mg PO BID docusate sodium [Colace] 100 mg Capsule 300 - 500 mg PO DAILY duloxetine 60 mg Capsule,Delayed Release(Dr/Ec) 60 mg PO DAILY pregabalin 150 mg Capsule 150 mg PO BID tizanidine 2 mg Tablet 2 mg PO Q8H PRN (Reason: Muscle Spasm) aspirin 81 mg capsule 81 mg PO DAILY Qty: 1 0RF Discontinued oxycodone 20 mg Tablet 20 mg PO BID hydromorphone 2 mg Tablet 2 mg PO Q3H PRN (Reason: pain, severe) Qty: 20 0RF Follow up/Referrals: Garima Lanier MD [Primary Care Provider] - Pat Hernandes MD [Physician] - (Two weeks) Discharge Health Status Multidrug resistant organism: MRSA Precautions: Contact Diet/Activity/Treatments Diet: Diet as Tolerated Activity: Nonweightbearing right lower extremity, okay to transfer out of bed Cold/Heat Therapy: Ice to hip as needed Catheter comment: Patient request to leave rodriguez in due to pain. Provider(Patel Proctor) okayed Skin/Wound/Dressing Care Report to your healthcare provider any signs of infection, such as:: chills, fever, night sweats, increased pain, unusual drainage and unusual redness Dressing: Keep dressing clean and dry, refer to alice dressing instructions sheet Special Rehabilitation Services Reason for rehabilitation: Post-operative therapy Rehab type: Physical therapy and Occupational therapy Restrictions to mobility: Nonweightbearing right lower extremity, okay to transfer out of bed Visit Report/Discharge Packet Instructions: DI for Hip Replacement, DI for Prescription Opioid Use Stand Alone Forms: Surgery Discharge Discharge Data Primary Care Provider: Garima Lanier VTE Deep Vein Thrombosis/Pulmonary Embolism Present on Admission: No
--- NOTE | 2022-03-19 11:12 | CM.DPNOTE ---
DCP Cont: Pt was discharged to [facility] this morning via BLS. All required information was sent along with pt and was faxed to [place]. Sana Giang RN/BRITTANY
--- NOTE | 2022-03-19 11:42 | PC.NURSE ---
Addendum entered by Robyn Mendez R.N. 03/19/22 11:44: I did not DC IV. picc left intact. flushing great. Original Note: Provider okayed leaving michael in.
--- NOTE | 2022-03-19 14:50 | P.DS_ITS ---
History of Present Illness History of Present Illness Date Patient Seen: 03/19/22 Time Patient Seen: 07:45 Chief complaint: Right hip pain Narrative: Patient states her pain is currently well managed with 20 mg oxycodone every 3-4 hours, Dilaudid 2 mg for breakthrough pain. She denies fever /chills. No nausea /vomiting. Discharge Providers Provider Date of admission: 03/09/22 22:24 Discharge Date: 03/19/22 Primary care physician: Garima Lanier MD Consults: 03/10/22 12:42 Consult to Orthopedic Surgery Routine Comment: Consulting Provider: Pat Hernandes Reason for consultation: orthopedic consultation, post operative complication 03/13/22 07:25 Consult to Anesthesiology Routine Comment: Consulting Provider: Anesthesiologist Reason for consultation: Regional block for post operative pain control 03/13/22 20:07 Consult to Discharge Planning Routine Comment: Consult to Physical Therapy Evaluate & Treat Comment: Physician Instructions: post op JENNIE protocol Consult to Respiratory Therapy Evaluate & Treat Comment: Physician Instructions: Evaluate and treat 03/14/22 12:12 Consult to Occupational Therapy Evaluate & Treat Comment: Physician Instructions: Evaluate and treat Discharge provider: Patel Proctor PA-C Summary Hospital Course Discharge Diagnosis: Right acetabular fracture, history of right total hip arthroplasty, infected hematoma Hospital Course: right total hip irrigation and debridement and removal of total hip and placement of an antibiotic spacer femoral replacement Same procedure as scheduled: Yes Indications: This is a lady use 1 month status post a right total hip arthroplasty.? She developed a postoperative hematoma.? She does have a history of a bleeding disorder but was given appropriate DDAVP at the time of her surgery.? She then went on to have continued pain and swelling.? She did not have significant fevers or chills the CT scan showed evidence of a right acetabular fracture with malalignment of the cup.? Her hip was aspirated and is growing is scant Staph aureus.? She is brought to the operating room for irrigation and debridement wi th the plan for probable removal of her total hip arthroplasty and placement of an antibiotic spacer. Surgeon: Pat Hernandes Engineer Soils: Mariana Mendez Anesthesia Type: General Operative Notes Findings: gross pus deep tracking into the total hip, loose acetabulum, acetabular fracture with mild displacement Closure Type: primary Specimen(s): other (multiple cultures and PCR) Prosthetic devices, grafts, tissues, transplants, or devices: remedy spectrum 46mm femoral head, small femoral remedy spectrum antibiotic spacer femoral component, vancomycin cement and powder Applied: catheter and drain(s) Estimated Blood Loss (mL): 250 Patient admitted to the hospital for right acetabular fracture, history of right total hip arthroplasty, infected hematoma. Patient taken to the operating room on March 13, 2022 underwent right total hip irrigation debridement and removal of total hip and placement of antibiotic spacer femoral component. Patient has progressed as expected. Status at Discharge Cognitive/behavioral status at discharge: at baseline, confused Functional status at discharge: uses cane/walker Overall status at discharge: patient is progressing back to baseline Exam Vital Signs (past 8 hours): - 03/19/22 09:00 03/19/22 08:11 Temperature 97.5 F L Pulse Rate 103 H Respiratory Rate 19 Blood Pressure 181/90 H Pulse Oximetry 100 Oxygen Delivery Method Room Air Oxygen Flow Rate 0 Oxygen Delivery Method Room Air Oxygen Flow Rate 0 Narrative Exam Narrative: Pleasant 72 year old female resting comfortably in bed no apparent distress. Alice dressing is on and functioning. Dressing is Clean, dry, intact.. There is a small quarter-sized superficial wound lateral thigh without redness or drainage. Motor functions intact bilateral lower extremities. Sensation grossl y intact to light touch bilateral lower extremities. Const General: cooperative Nutritional Appearance: average body habitus Orientation: alert and oriented x3 HENMT Head: normal to inspection Resp Effort & Inspection: normal respiratory effort and able to speak in complete sentences Objective Labs Result Diagrams: 03/18/22 16:55 03/18/22 16:55 Labs: Laboratory Results - last 24 hr 03/18/22 03/18/22 03/19/22 16:55 16:55 08:41 WBC 10.0 RBC 2.95 L Hgb 9.7 L Hct 28.5 L MCV 96.3 D MCH 32.7 MCHC 33.9 RDW 20.5 H Plt Count 336 Neut % (Auto) 81.4 H Lymph % (Auto) 8.6 L [place] % (Auto) 7.0 Eos % (Auto) 2.3 Baso % (Auto) 0.7 Neut # (Auto) 8100 H Lymph # (Auto) 900 L [place] # (Auto) 700 Eos # (Auto) 200 Baso # (Auto) 100 RBC Morphology See below Anisocytosis 1+ H ESR 66 H Sodium 140 Potassium 3.0 L Chloride 110 H Carbon Dioxide 25 BUN 4 L Creatinine 0.44 L Estimated GFR > 60 BUN/Creatinine Ratio 9.1 Glucose 101 Calcium 8.8 Total Bilirubin 0.4 AST 38 H ALT 26 Alkaline Phosphatase 139 H C-Reactive Protein 7.9 H Total Protein 5.9 L Albumin 3.1 L Globulin 2.8 Albumin/Globulin Ratio 1.1 SARS-CoV-2 (PCR) Negative PFSH Medical History Actinic keratoses ADHD Arthritis B12 deficiency Back pain with history of spinal surgery BCC (basal cell carcinoma) Bleeding diathesis Cervical spondylosis Chronic pain DDD (degenerative disc disease) Depression Gastric ulcer (02/17/20) History of Mohs micrographic surgery for skin cancer HTN (hypertension) Hypersomnia Iron deficiency anemia Neurogenic claudication LEO (obstructive sleep apnea) Osteoarthritis Osteoporosis Psoriasis Psoriatic arthritis RBBB (right bundle branch block) RLS (restless legs syndrome) Rosacea SCC (squamous cell carcinoma) Scoliosis Sicca syndrome Spinal stenosis Spontaneous bruising Surgical History History of carpal tunnel surgery of left wrist History of carpal tunnel surgery of right wrist History of gastric bypass (~2004) History of hysterectomy (1995) History of reverse total replacement of right shoulder joint History of spinal fusion Hx of arthroscopy of left knee Hx of arthroscopy of right knee Hx of cholecystectomy Hx of toe surgery Social History household members: none Smoking Status: Never smoker alcohol intake: current substance use type: does not use Discharge Assessment & Plan Assessment and Plan Assessment: Patient progressing as expected. Plan of Treatment: Vancomycin per pharmacy x6 weeks Nonweightbearing right lower extremity, okay to transfer out of bed Multimodal pain management Alice instructions reviewed with the patient and a handout is provided for lucía gonzalez. Follow-up with [facility] in 2 weeks. Discharge Plan Discharge Plan Patient Disposition: SNF Transfer to: [facility] Discharge orders & Medications Prescriptions: New acetaminophen 325 mg Tablet 650 mg PO Q6HR Qty: 60 0RF ibuprofen 400 mg Tablet 400 mg PO Q6HR Qty: 60 0RF polyethylene glycol 3350 17 gram Powder In Packet 17 g PO DAILY PRN (Reason: Constipation) Qty: 30 0RF vancomycin-water inject (PEG) 1.25 gram/250 mL Piggyback 1,250 mg IV Q12HR@0900,2100 42 Days Qty: 1500 0RF Rx Instructions: Per pharmacy hydromorphone [Dilaudid] 2 mg tablet 2 mg PO Q6H PRN (Reason: pain (scale score 7-10)) Qty: 60 0RF Rx Instructions: 2 mg q.6 hours as needed for breakthrough pain hydromorphone 2 mg Tablet 2 mg PO Q3H PRN (Reason: Pain, Severe (7-10)) Qty: 60 0RF Rx Instructions: 2 mg every 3 hours as needed for breakthrough pain oxycodone 5 mg tablet 20 mg PO Q3H PRN (Reason: pain (scale score 4-6)) Qty: 120 0RF Continued bupropion HCl 150 mg Tablet Sustained-Release 12 Hr 150 mg PO BID doxycycline hyclate 100 mg Capsule 100 mg PO DAILY meloxicam 15 mg Tablet 15 mg PO DAILY dextroamphetamine-amphetamine [Adderall] 10 mg Tablet 10 mg PO BID Rx Instructions: administer doses at least 4-6 hours apart metoprolol succinate 100 mg Tablet Extended Release 24 Hr 100 mg PO DAILY pantoprazole 40 mg Tablet,Delayed Release (Dr/Ec) 40 mg PO BID docusate sodium [Colace] 100 mg Capsule 300 - 500 mg PO DAILY duloxetine 60 mg Capsule,Delayed Release(Dr/Ec) 60 mg PO DAILY pregabalin 150 mg Capsule 150 mg PO BID tizanidine 2 mg Tablet 2 mg PO Q8H PRN (Reason: Muscle Spasm) aspirin 81 mg capsule 81 mg PO DAILY Qty: 1 0RF Discontinued oxycodone 20 mg Tablet 20 mg PO BID hydromorphone 2 mg Tablet 2 mg PO Q3H PRN (Reason: pain, severe) Qty: 20 0RF Follow up/Referrals: Klaudia Nicole MD [Non-Staff] - (right hip abscess, MRSA s/p right total hip irrigation removal of hip and placement of antibiotic spacer, surgery on 03/13, on vanco planned for six weeks through 04/25) Garima Lanier MD [Primary Care Provider] - Pat Hernandes MD [Physician] - (Two weeks) Discharge Health Status Multidrug resistant organism: MRSA Precautions: Contact Diet/Activity/Treatments Diet: Diet as Tolerated Activity: Nonweightbearing right lower extremity, okay to transfer out of bed Cold/Heat Therapy: Ice to hip as needed Catheter comment: Patient request to leave rodriguez in due to pain. Provider(Patel Proctor) okayed Skin/Wound/Dressing Care Report to your healthcare provider any signs of infection, such as:: chills, fever, night sweats, increased pain, unusual drainage and unusual redness Dressing: Keep dressing clean and dry, refer to alice dressing instructions sheet Special Rehabilitation Services Reason for rehabilitation: Post-operative therapy Rehab type: Physical therapy and Occupational therapy Restrictions to mobility: Nonweightbearing right lower extremity, okay to transfer out of bed Visit Report/Discharge Packet Instructions: DI for Hip Replacement, DI for Prescription Opioid Use Stand Alone Forms: Surgery Discharge Discharge Data Primary Care Provider: Garima Lanier VTE Deep Vein Thrombosis/Pulmonary Embolism Present on Admission: No
== END 2022-03-19 10:49 | DRG 467 ==
PROVIDERS: Internal Medicine; Orthopaedic Surgery; Admitting Provider Family Medicine; PCP Internal Medicine Geriatric Medicine; Referring Provider Family Medicine; Visit Provider Family Medicine
PROC: 0SR90EZ Replacement of Right Hip Joint with Articulating Spacer, Open Approach (ICD-10-PCS; CPT 27130; principal; 2022-03-13 14:15)
DX: T84.51XA Infection and inflammatory reaction due to internal right hip prosthesis, initial encounter (principal); M96.840 Postprocedural hematoma of a musculoskeletal structure following a musculoskeletal system procedure; M80.051A Age-related osteoporosis with current pathological fracture, right femur, initial encounter for fracture; F11.20 Opioid dependence, uncomplicated; T84.030A Mechanical loosening of internal right hip prosthetic joint, initial encounter; D69.9 Hemorrhagic condition, unspecified; A49.02 Methicillin resistant Staphylococcus aureus infection, unspecified site; D64.89 Other specified anemias; F90.9 Attention-deficit hyperactivity disorder, unspecified type; G89.29 Other chronic pain; F32.A Depression, unspecified; G89.18 Other acute postprocedural pain; L29.0 Pruritus ani; I10 Essential (primary) hypertension; Z98.1 Arthrodesis status; Z20.822 Contact with and (suspected) exposure to COVID-19
CPT/HCPCS: 36415; 36430; 36573; 73502; 80048; 80053; 80202; 82565; 82962; 85014; 85018; 85025; 85610; 85651; 86140; 86850; 86900; 86901; 87045; 87070; 87075; 87077; 87147; 87185; 87186; 87205; 87493; 87635; 87801; 87899; 89051; 97110; 97162; 97166; 97530; 97535; C1776; C9803; P9016; C9290; J0171; J0690; J1100; J1170; J2250; J2405; J2543; J2704; J3010; J3420